=== PATIENT | male | born 1940 | race Caucasian/White ===

== ENCOUNTER 2019-08-21 12:07 | Inpatient (IN) | payer MEDICARE, BC ==
[~2019-08-21] VITALS: Ht 172.7 cm; Wt 71.1 kg
[2019-08-21] VITALS (29 sets, daily range): BP systolic 84–114; BP diastolic 46–68
--- NOTE | ~2019-08-21 | HEMODYNAMI ---
PATIENT:SHERIDAN SOLIS MEDICAL RECORD: [id number] : 40 [facility] ADMISSION DATE: 08/21/19 Generatedon:08/24/20198:49 Patient name: SHERIDAN SOLIS Patient #: [id number] SSN: : 1940 Date of study: 08/24/2019 Page: Of Hemodynamic Procedure Report Patient Data Patient Demographics Procedure consent was obtained First Name: SHERIDAN Gender: Male Last Name: WILL : 1940 Patient #: [id number] Age: 79 year(s) Race: Unknown Additional ID: [id number] Contact details [address]: [address] [place] [address] State: [place] City: [place] Zip code: [address] Past Medical History Allergies: No allergy information Admission Admission Data Admission Date: 08/21/2019 Admission Time: 13:56 Room #: [facility] Height (in.): 67.72 BSA: 1.79 (m2) Height (cm.): 172 BMI: 22.65 (kg/m2) Weight (lbs.): 147.71 Weight (kg.): 67 Lab Results Lab Result Date: 08/24/2019 Lab Result Time: 0:00 Biochemistry Name Units Result Min Max BUN mg/dl 19 --(----)*- 7 18 eGFR ml/min 90 --(*---)-- 90 120 NONAFRICAN CBC Name Units Result Min Max Hematocrit % 27.1 *-(----)-- 42 54 Hemoglobin g/dl 8.6 *-(----)-- 13.5 17.5 Procedure Procedure Types Cath Procedure Diagnostic Procedure C C w/Coronaries w/Grafts Sedation Charges Moderate Sedation up to 15 minutes PCI Procedure AMI/SVG/BRIM EDGE TRIMMER PTCA or Stent SVG-BMS/RASHAUN Initial Hemochron ACT Test Procedure Description Procedure Date Procedure Date: 08/24/2019 Procedure Start Time: 8:22 Procedure End Time: 8:47 Procedure Staff Name Function Eladio Reddy MD Performing Physician Ashanti Yun RT Monitor Sari Bergman RT Scrub Justine Simon RN Nurse Paul Mario RT Director Of Outreach Procedure Data Cath Procedure Fluoroscopy Diagnostic fluoroscopy Total fluoroscopy Time: 5.7 time: 5.7 min min Diagnostic fluoroscopy Total fluoroscopy dose: 578 dose: 578 mGy mGy Contrast Material Contrast Material Type Amount (ml) Isovue 300 125 Entry Location Entry Primary Successful Side Size Upsize Upsize Entry Closure Succes sful Closure Location (Fr) 1 (Fr) 2 (Fr) Remarks Device Remarks Femoral Right 5 Fr 6 Fr Exoseal artery Short Estimated blood loss: 10 ml Diagnostic catheters Device Type Used For End Catheter Placement MULTIPACK Pigtail 5 Fr Procedure catheter MULTIPACK JL 4.0 5Fr Procedure catheter MULTIPACK 3DRC 5Fr Procedure catheter DIAGNOSTIC AR2 MOD 5 Fr Procedure catheter ([id number]) Procedure Complications No complications Procedure Medications Medication Administration Route Dosage Oxygen etCO2 Nasal cannula 2 l/min Zofran I.V. 4 mg Plavix P.O. 75 mg Lidocaine 2% added to field 20 Heparin Flush Bag added to field 2 bags (1000units/500ml NS) 0.9% NaCl I.V. 100 ml/hr Versed I.V. 0.5 mg Fentanyl I.V. 50 mcg Fentanyl I.V. 50 mcg Lasix I.V. 40 mg Heparin Bolus I.V. 4000 units Cardene I.C. 300 mcg Integrilin (Bolus I.V. 6.2 ml 2mg/ml) Hemodynamics Rest BSA: 1.79 (m2) HGB: 8.6 (g/dl) O2 Consumption: Estimated: 212.23 (ml/min) O2 Con sumption indexed: Estimated:118.56 (ml/min/m) Heart Rate: 81 (bpm) Snapshots Pre Cath Intra NCS Post Cath Vital Signs Time Heart Resp SPO2 etCO2 NIBP Rhythm Pain Sedation Rate (ipm) (%) (mmHg) (mmHg) Status Level (bpm) 7:59:08 84 34 89 0 120/74(90) NSR 0 (11) 10(A) , No pain 8:03:18 80 35 90 0 112/61(80) NSR 0 (11) 10(A) , No pain 8:07:24 80 27 96 0 119/63(91) NSR 0 (11) 10(A) , No pain 8:11:29 79 39 95 0 116/66(91) NSR 0 (11) 10(A) , No pain 8:15:35 81 27 96 0 111/63(88) NSR 0 (11) 10(A) , No pain 8:19:41 76 25 96 0 113/60(89) NSR 0 (11) 10(A) , No pain 8:23:49 78 35 94 0 109/58(85) NSR 0 (11) 10(A) , No pain 8:27:54 78 39 95 0 111/57(82) NSR 0 (11) 10(A) , No pain 8:32:02 76 30 95 0 102/54(80) NSR 0 (11) 10(A) , No pain 8:36:06 73 29 94 0 84/49(69) NSR 0 (11) 10(A) , No pain 8:40:06 75 38 95 0 95/51(73) NSR 0 (11) 10(A) , No pain 8:44:08 73 33 96 0 100/53(78) NSR 0 (11) 10(A) , No pain Medications Time Medication Route Dose Verified Delivered Reason Notes Effectiveness by by 7:57:18 Oxygen etCO2 2 Eladio Trinidadie used for Nasal l/min Barry Simon RN procedure cannula 7:57:27 Zofran I.V. 4 mg Eladio Fletcher Per physician Barry Simon RN 7:57:37 Plavix P.O. 75 mg Eladio Fletcher for Barry Simon RN antiplatelet therapy 7:59:40 Lidocaine 2% added 20ml Eladio Hendricks for local to vial Barry Reddy MD anesthetic field 7:59:46 Heparin Flush added 2 Eladio Eladio used for Bag to bags Barry Reddy MD procedure (1000units/500ml field NS) 7:59:57 0.9% NaCl I.V. 100 Eladio Eladio used for ml/hr Barry Reddy MD procedure 8:19:14 Fentanyl I.V. 50 Eladio Abdiie for sedation mcg Barry Simon RN 8:19:45 Versed I.V. 0.5 Eladiomarcelino Abdiie for sedation mg Barry Simon RN 8:25:23 Fentanyl I.V. 50 Eladio Fletcher for sedation ebenezer Simon RN 8:27:34 Lasix I.V. 40 mg Eladio Fletcher Per physician Barry Simon RN 8:31:45 Heparin Bolus I.V. 4000 Eladio Fletcher for verifi ed units Barry Simon RN anticoagulation with dr reddy 8:33:25 Cardene I.C. 300 Eladio Hendricks for mcg Barry pruett 8:39:50 Integrilin I.V. 6.2 Eladio Fletcher for wasted (Bolus 2mg/ml) ml Barry Simon RN antiplatelet 3.8 ml therapy of vial Procedure Log Time Note 7:34:25 Informed consent obtained and on chart 7:35:10 Procedure Status Urgent Heart Cath (IP). 7:35:12 Paul Suit RT(R) sent for patient. Start room use. 7:35:18 Time tracking: Regular hours (M-F 7:00 - 5:00) 7:35:26 Plan of Care:Hemodynamics will remain stable., Cardiac rhythm will remain stable., Comfort level will be maintained., Respiratory function will remain adequate., Patient/ family verbilizes understanding of procedure., Procedure tolerated without complication., Recovers from procedure without complications.. 7:43:00 H&P Date Dictated: 08/24/2019 New H&P dictated by physician.. 7:43:32 Patient allergic to No allergy information 7:44:45 Lab Result : BUN 19 mg/dl 7:44:45 Lab Result : eGFR NONAFRICAN 90 ml/min 7:44:45 Lab Result : Hemoglobin 8.6 g/dl 7:44:45 Lab Result : Hematocrit 27.1 % 7:45:39 Patient Weight : 147.71 lbs 7:45:43 Patient Height : 67.72 inches 7:47:09 Patient received from Pre/Post Procedure Room to CCL 1 Alert and oriented. Tansferred to table in Supine position. 7:47:10 Warm blankets applied, and freida hugger turned on for patient comfort. 7:47:10 Correct patient and procedure confirmed by team. 7:47:11 ECG and BP/O2 sat monitors applied to patient. 7:57:18 Oxygen 2 l/min etCO2 Nasal cannula was administered by Justine Simon RN; used for procedure; Verbal order read back and verified. 7:57:27 Zofran 4 mg I.V. was administered by Justine Simon RN; Per physician; Verbal order read back and verified. 7:57:37 Plavix 75 mg P.O. was administered by Justine Simon RN; for antiplatelet therapy; Verbal order read back and verified. 7:57:59 Vital chart was started 7:58:00 Baseline sample Acquired. 7:58:04 Rhythm: sinus rhythm 7:58:35 Full Disclosure recording started 7:58:38 Pre-procedure instructions explained to patient. 7:58:38 Pre-op teaching completed and patient verbalized understanding. 7:58:40 Family unavailable. 7:58:41 Patient NPO since Midnight. 7:58:52 Is patient on blood thinner?Yes 7:59:03 PRE LOADED ON PLAVIX 7:59:28 Patient diabetic? No. 7:59:31 Previous problem with sedation/anesthesia? No ? 7:59:32 Snore? Yes 7:59:33 Sleep apnea? No 7:59:34 Deviated septum? No 7:59:36 Opens mouth fully? Yes 7:59:37 Sticks out tongue? Yes 7:59:39 Airway obstruction? No ? 7:59:40 Lidocaine 2% 20ml vial added to field was administered by Eladio Reddy MD; for local anesthetic; Verbal order read back and verified. 7:59:41 Dentures? No ? 7:59:46 Heparin Flush Bag (1000units/500ml NS) 2 bags added to field was administered by Eladio Reddy MD; used for procedure; Verbal order read back and verified. 7:59:57 0.9% NaCl 100 ml/hr I.V. was administered by Eladio Reddy MD; used for procedure; Verbal order read back and verified. 7:59:57 Pre procedure: right dorsailis pedis pulse 1+ Palpable, but thready & weak; easily obliterated 8:00:05 IV patent on arrival in right antecubital with 0.9% NaCl at [facility]. 8:01:44 Lab results completed and on chart. 8:01:53 Stress Test: no; N/A ? 8:01:57 Right groin area was prepped with chlora-prep and draped in sterile fashion 8:01:57 Alarms reviewed by RParag N. 8:01:58 Sharps counted by scrub and verified by R.N. 8:03:58 Risk of Mortality: .2 8:04:03 Risk of blood transfusion: 22.3 8:04:06 Risk of ISIDRO: 1.8 8:04:09 Use device set Femoral Dx 8:04:10 ACIST Syringe (74954) opened to sterile field. 8:04:11 Bag Decanter (2002S) opened to sterile field. 8:04:11 ACIST Hand Control (23053) opened to sterile field. 8:04:12 ACIST Manifold (01099) opened to sterile field. 8:04:15 Tegaderm 4 x 4 (1626W) opened to sterile field. 8:04:16 Medline Cath Pack ([id number]) opened to sterile field. 8:04:17 DIAGNOSTIC Multipack 5Fr catheter set (RY3768) opened to sterile field. 8:04:18 SHEATH 5FR [place] (RXQ397) opened to sterile field. 8:04:18 EMERALD Guide Wire (484-838) opened to sterile field. 8:18:59 --------ALL STOP TIME OUT------ 8:18:59 Final Timeout: patient, procedure, and site verified with staff and physician. All members of the team are in agreement. 8:19:01 Right groin site verified by team. 8:19:03 Fire Safety Assessment: A--An alcohol-based skin anteseptic being used preoperatively., C--Open oxygen or nitrous oxide is being used., D--An ESU, laser, or fiber-optic light is being used. 8:19:13 Physical assessment completed. ASA score P 4 - A patient with severe systemic disease that is a constant threat to life as per Eladio Reddy MD. 8:19:14 Fentanyl 50 mcg I.V. was administered by Justine Simon RN; for sedation; Verbal order read back and verified. 8:19:15 1) 90+ Normal kidney functon but urine findings or structural abnormalities or genetic trait point to kidney disease. 8:19:18 Maximum allowable contrast dose (3.7 X eGFR X 0.75)250 ml. 8:19:21 Sedation plan: IV Moderate Sedation Medication:Versed, Fentanyl 8:19:45 Versed 0.5 mg I.V. was administered by Justine Simon RN; for sedation; Verbal order read back and verified. 8:22:21 Zero performed for pressure channel P1 8:22:29 Procedure started. 8:22:37 Local anesthetic to right femoral artery with Lidocaine 2% by Eladio Reddy MD.INITIAL ACCESS ONLY 8:23:06 A 5 Fr sheath was inserted into the Right Femoral artery 8:23:36 A MULTIPACK Pigtail 5 Fr catheter was advanced over the wire and used for Procedure. 8:23:38 LV gram done using SMITH 8::41 Injector settings: Ml/sec: 10, Volume: 20, 8:24:05 EF : 50 % 8:24:33 Catheter removed. 8:24:53 A MULTIPACK JL 4.0 5Fr catheter was advanced over the wire and used for Procedure. 8:24:56 LCA angiography performed. 8:24:58 Catheter removed. 8:25:19 A MULTIPACK 3DRC 5Fr catheter was advanced over the wire and used for Procedure. 8:25:23 Fentanyl 50 mcg I.V. was administered by Justine Simon RN; for sedation; Verbal order read back and verified. 8:26:13 BROWN to LAD angiography performed. 8:26:49 RCA angiography performed. 8:26:50 Catheter removed. 8:27:08 A DIAGNOSTIC AR2 MOD 5 Fr catheter ([id number]) was advanced over the wire and used for Procedure. 8:27:34 Lasix 40 mg I.V. was administered by Justine Simon RN; Per physician; Verbal order read back and verified. 8:28:06 SVG to Diag angiography performed. 8:28:49 SVG to RCA angiography performed. 8:28:52 Catheter removed. 8:29:12 SHEATH 6FR [place] ([id number]) opened to sterile field. 8:29:20 CHOICE PT Extra Support 182cm wire ([id number]) opened to sterile field. 8:29:24 INFLATOR Merit BasixCompak (GI3792) opened to sterile field. 8:29:34 GUIDE 6FR AR 2.0 catheter ([id number]) opened to sterile field. 8:29:53 Proceeding to intervention. 8:30:08 Pre PCI Site: Vein Graft mRCA has 95% stenosis. 8:30:24 Sheath upsized to a 6 Fr Short. 8:30:49 6 Fr AR 2 guide catheter was inserted over the wire 8:31:45 Heparin Bolus 4000 units I.V. was administered by Justine Simon RN; for anticoagulation; verified with dr reddy Verbal order read back and verified. 8:31:53 CHOICE ES 182 wire advanced. 8:32:52 Wire advanced across lesion. 8:33:25 Cardene 300 mcg I.C. was administered by Eladio Reddy MD; for vasodilation; Verbal order read back and verified. 8:34:10 Place stent Inflation Number: 1 A ADOLFO RX 3.5 x 30 stent ([id number]) was prepped and advanced across the Aorta Right -> Mid RCA . The stent was deployed at 17 ALAN for 0:00 (min:sec) . 8:34:38 Stent catheter was removed intact over wire. 8:36:15 Place stent Inflation Number: 2 A ADOLFO RX 3.5 x 22 stent ([id number]) was prepped and advanced across the Aorta Right -> Mid RCA . The stent was deployed at 17 ALAN for 0:00 (min:sec) . 8:36:31 Stent catheter was removed intact over wire. 8:38:58 Place stent Inflation Number: 3 A ADOLFO RX 3.5 x 34 stent ([id number]) was prepped and advanced across the Aorta Right -> Mid RCA . The stent was deployed at 17 ALAN for 0:00 (min:sec) . 8:39:01 Stent catheter was removed intact over wire. 8:39:49 Wire removed. 8:39:49 Guide catheter removed. 8:39:50 Integrilin (Bolus 2mg/ml) 6.2 ml I.V. was administered by Justine Simon RN; for antiplatelet therapy; wasted 3.8 ml of vial Verbal order read back and verified. 8:40:00 EXOSEAL 6Fr (EX600) opened to sterile field. 8:40:11 Sheath removed intact; hemostasis achieved with Exoseal to the Right Femoral artery. 8:40:12 Procedure ended.(Physican Out) 8:41:28 Fluoroscopy time 05.70 minutes. 8:41:32 Fluoroscopy dose: 578 mGy 8:41:32 Flurop Dose total: 578 8:41:38 Dose Area Product 48596 mGy/cm. 8:41:42 Contrast amount:Isovue 300 125ml. 8:41:45 Maximum allowable dose exceeded? No. 8:41:46 Sharps counted by scrub and verified by R.N. 8:41:51 Post-op/insertion site Right Femoral artery dressed using a 4 x 4 and Tegaderm. 8:41:54 Post-procedure physical assessment completed. ASA score P 4 - A patient with severe systemic disease that is a constant threat to life as per Eladio Reddy MD. 8:41:58 Post procedure rhythm: sinus rhythm 8:42:00 Estimated blood loss: 10 ml 8:42:01 Post procedure instruction explained to patient.Patient verbalizes understanding. 8:42:01 Patient needs reinforcement of post procedure teaching. 8:43:00 Procedure type changed to Cath procedure, Diagnostic procedure, LHC, LHC w/Coronaries w/Grafts, Sedation Charges, Moderate Sedation up to 15 minutes, PCI procedure, AMI/SVG/BRIM EDGE TRIMMER PTCA or Stent, SVG-BMS/RASHAUN Initial, Hemochron ACT Test 8:43:10 ACT drawn and resulted at OUT OF RANGE seconds. (normal therapeutic range 180-240 seconds). 8:44:56 Procedure and supply charges have been captured, reviewed, submitted and are correct. 8:44:59 Procedure Complication : No complications 8:45:03 [facility] Findings: MVD- PCI performed (see procedure note) 8:45:05 Operative report dictated upon procedure completion. 8:45:05 See physician's report for complete and final results. 8:47:02 Vital chart was stopped 8:47:06 Report given to ICU. 8:47:11 Patient transfered to ICU with Bed. 8:47:13 Procedure ended. 8:47:13 Full Disclosure recording stopped 8:47:19 ACC-PCI Only Patient was given prescriptions, or instructed by Eladio Reddy MD to start/continue the following medications upon discharge: Plavix 8:47:21 End room use (Document Last) 8:47:34 End room use (Document Last) Intervention Summary Intervention Notes Time ActionType Lesion and Equipment Used Action# Pressure Duration Attributes 8:34:10 Place stent Aorta Right ADOLFO RX 3.5 x 1 17 00:00 -> Mid RCA 30 stent ([id number]) 8:36:15 Place stent Aorta Right ADOLFO RX 3.5 x 2 17 00:00 -> Mid RCA 22 stent ([id number]) 8:38:58 Place stent Aorta Right ADOLFO RX 3.5 x 3 17 00:00 -> Mid RCA 34 stent ([id number]) Device Usage Item Name Manufacture Quantity Catalog Number Hospital Part Current M inimal Lot# / Charge Number Stock Stock Serial# Code ACIST Syringe Acist 1 01502 491896 451932 230072 2 0 (50278) Medical Systems Post-A-Vox Bag Decanter Microtek 1 449834 58205 763653 5 () Medical Inc. ACIST Hand Acist 1 39126 578462 755836 324702 5 Control Medical (42745) Systems Inc ACIST Manifold Acist 1 73094 909813 540124 873270 5 (14299) Medical Systems Inc Tegaderm 4 x 4 3M 1 1626W 803823 886399 440902 5 (1626W) Medline Cath Medline 1 [id number] 870814 13571 958696 5 Pack ([id number]) DIAGNOSTIC Cardinal 1 QJ9343 236714 90786 982661 3 0 Multipack 5Fr Health catheter set (AR5825) SHEATH 5FR Terumo 1 HWJ582 681098 189924 028403 5 [place] (KYD390) EMERALD Guide Cardinal 1 502-455 726182 916343 974324 5 Wire (502-455) Health MULTIPACK Cardinal 1 515023 5 Pigtail 5 Fr Health catheter MULTIPACK JL Cardinal 1 120482 5 4.0 5Fr Health catheter MULTIPACK 3DRC Cardinal 1 163952 5 5Fr catheter Health DIAGNOSTIC AR2 Cardinal 1 [id number] 417376 033063 995271 2 0 MOD 5 Fr Health catheter ([id number]) SHEATH 6FR Terumo 1 IKN524 333838 245093 661218 4 0 [place] (FCV527) CHOICE PT [place] 1 [id number] 965833 801690 822655 5 Extra Support Scientific 182cm wire ([id number]) INFLATOR Merit Merit 1 HQ0547 918380 278847 185127 1 5 [place] ([id number]) GUIDE 6FR AR Medtronic 1 [id number] 214288 77687 597966 1 2.0 catheter (OJ2QH24) ADOLFO RX 3.5 x Medtronic 1 [id number] 415115 7673611 589070 5 [id number] 30 stent ([id number]) ADOLFO RX 3.5 x Medtronic 1 [id number] 980049 7082761 187281 5 [id number] 22 stent ([id number]) ADOLFO RX 3.5 x Medtronic 1 [id number] 888049 3569723 629357 5 [id number] 34 stent ([id number]) EXOSEAL 6Fr Cardinal 1 EX600 034425 545341 453420 1 0 (EX600) Health Signature Audit [place] Stage Time Signature Unsigned Intra-Procedure 08/24/2019 Ashanti Yun 8:47:34 AM RT(R) Intra-Procedure 08/24/2019 Justine Simon RN 8:48:14 AM Intra-Procedure 08/24/2019 Eladio Reddy 8:49:26 AM [place] [id number]
--- NOTE | 2019-08-21 13:50 | NUR ---
PT ARRIVED AT THIS TIME VIA EMS ON STRETCHER. VSS. NO ACUTE DISTRESS NOTED. ON 12L OXYGEN VIA NONREBREATHER. ALSO ON LEVOPHED. DR FINN NOTIFIED OF PTS ARRIVAL. PT ABLE TO ANSWER ORIENTATION QUESTIONS APPROPIATELY, HOWEVER PT STATES HE CAN SEE ANTS CRAWLING ALL OVER THE CEILING. WILL CONTINUE PLAN OF CARE.
--- NOTE | 2019-08-21 13:59 | NUR ---
CARDIAC CONSULT NOTED, PER DR BURKETT ORDER AN ECHO.
--- NOTE | 2019-08-21 14:04 | NUR ---
DR FINN HERE TO SEE PT. ORDERS RECIEVED.
--- NOTE | 2019-08-21 15:00 | NUR ---
REASSESSMENT AND ECG COMPLETED. WILL CONT TO MONITOR.
[2019-08-21 15:17] LABS: HEMOGLOBIN 9.6 g/dL (13.5-17.5); MCH 29.2 pg (26.0-34.0); MCHC 33.1 g/dL (31.0-37.0); MCV 88.1 fL (80.0-100.0); PLATELET COUNT 262 10x3/uL (130-400); RBC 3.29 10x6/uL (4.20-6.10); RDW 14.9 % (11.5-14.5); WBC 20.5 10x3/uL (4.8-10.8)
[2019-08-21 15:38] LABS: CALC OSMOLALITY 281 mosm/kg (275-300); CALCIUM 7.5 mg/dL (8.5-10.1); CARBON DIOXIDE 28.9 mmol/L (21.0-32.0); CHLORIDE - SERUM 100 mmol/L (98-107); CREATININE - SERUM 0.9 mg/dL (0.6-1.3); GLUCOSE 117 mg/dL (74-106); POTASSIUM - SERUM 3.1 mmol/L (3.5-5.1); SODIUM 139 mmol/L (136-145); UREA NITROGEN 20 mg/dL (7-18); eGFR NON AFRICAN AMERICAN 86 mL/min (90-120)
[2019-08-21 15:40] LABS: LYMPHOCYTES 24 % (15-50); MONOCYTES 8 % (2-11); NEUTROPHILS 68 % (40-80); PLATELET ESTIMATE NORMAL
[2019-08-21 15:59] LABS: ALBUMIN 1.7 g/dL (3.4-5.0); ALKALINE PHOSPHATASE 101 U/L (46-116); ALT (SGPT) 107 U/L (10-68); BILIRUBIN - TOTAL 0.51 mg/dL (0.2-1.3); CKMB 1.4 U/L (0.0-3.6); CREATINE KINASE 64 UL (21-232); PROTEIN - SERUM 5.1 g/dL (6.4-8.2)
[2019-08-21 16:02] LABS: TROPONIN-I 4.896 ng/mL (0.000-0.060)
--- NOTE | 2019-08-21 16:57 | NUR ---
SPOKE WITH PT SISTER (TROY) ON THE PHONE, TROY SAID "PLEASE KEEP HIS PHONE AWAY FROM HIM, HE HAS CALLED ME 30 TIMES IN THE LAST HOUR. I NEED TO SLEEP. I WILL BE UP THERE TOMORROW MORNING." PUT PT PHONE ON BEDSIDE TABLE, GAVE PT CALL LIGHT. PT THEN STATED "YOU'RE TAKING MY PHONE, GIVE ME MY PHONE BACK. I NEED TO CALL TROY AND TELL HER TO COME GET ME FROM THIS HELL HOLE YOU GUYS PUT ME IN. I DON'T WANT TO BE IN THIS AIRPORT ANYMORE, YOU'RE TRYING TO KILL ME." ROSA M RN AT BEDSIDE. WILL CONT TO MONITOR.
--- NOTE | 2019-08-21 17:00 | NUR ---
PT CONFUSED, TRIED TO REORIENT PT MULTIPLE TIMES. PT STATED "YOU'RE PISSING ME OFF, I KNOW WHERE I AM." WILL CONT TO MONITOR.
--- NOTE | 2019-08-21 17:24 | NUR ---
CALLED , UPDATE GIVEN. NEW ORDERS RECEIVED. PT STATED "CALL MY DR AND TELL HIM I'M HAVING A FIT. YOU'RE REALLY PISSING ME OFF. GIVE ME MY PHONE. YOU'RE NOT GOING TO LIKE ME I CAN TELL YOU THAT." WILL CONT TO MONITOR.
--- NOTE | 2019-08-21 18:00 | NUR ---
GEODON SHOT GIVEN PER ORDERS. WILL CONT TO MONITOR.
--- NOTE | 2019-08-21 18:24 | NUR ---
PT RESTING IN BED WITH EYES CLOSED. WILL CONT TO MONITOR.
--- NOTE | 2019-08-21 19:00 | NUR ---
ASSESSMENT COMPLETED. CONFUSED. PATIENT IS CALM. DENIES ANY NEEDS
--- NOTE | 2019-08-21 21:00 | NUR ---
EYES CLOSED, EASILY WAKES TO NAME. DENIES ANY NEEDS. STARTED BACK LEVOPHED D/T HYPOTENSION.
[2019-08-21 21:52] LABS: CKMB 0.9 U/L (0.0-3.6); CREATINE KINASE 49 UL (21-232)
[2019-08-21 21:53] LABS: TROPONIN-I 4.918 ng/mL (0.000-0.060)
--- NOTE | 2019-08-21 23:00 | NUR ---
RE-ASSESSMENT COMPLETED. REPOSITIONED. DENIES ANY NEEDS.
[2019-08-22] VITALS (82 sets, daily range): BP systolic 78–113; BP diastolic 36–63
--- NOTE | 2019-08-22 01:00 | NUR ---
DENIES ANY NEEDS. EASILY WAKES. REPOSITIONED
--- NOTE | 2019-08-22 03:00 | NUR ---
RE-ASSESSMENT COMPLETED. NO CHANGES SINCE LAST ASSESSMENT. CHG BATH GIVEN WITH COMPLETE LINEN CHANGE
[2019-08-22 04:04] LABS: APPEARANCE CLEAR (CLEAR); BACTERIA NONE SEEN /hpf (NEGATIVE); BILIRUBIN NEGATIVE (NEGATIVE); COLOR YELLOW (YELLOW); GLUCOSE NEGATIVE (NEGATIVE); KETONE SMALL mg/dL (NEGATIVE); NITRITE NEGATIVE (NEGATIVE); PROTEIN NEGATIVE (NEGATIVE); UROBILINOGEN NORMAL (NORMAL); WHITE CELLS - URINE RARE /hpf (NEGATIVE)
--- NOTE | 2019-08-22 05:00 | NUR ---
LAYING IN BED, EYES CLOSED. EASILY WAKES. REPOSITIONED.
[2019-08-22 06:44] LABS: ALBUMIN 1.6 g/dL (3.4-5.0); ALKALINE PHOSPHATASE 98 U/L (46-116); ALT (SGPT) 81 U/L (10-68); BILIRUBIN - TOTAL 0.49 mg/dL (0.2-1.3); CALC OSMOLALITY 283 mosm/kg (275-300); CALCIUM 7.3 mg/dL (8.5-10.1); CARBON DIOXIDE 27.5 mmol/L (21.0-32.0); CHLORIDE - SERUM 102 mmol/L (98-107); CKMB 0.7 U/L (0.0-3.6); CREATINE KINASE 38 UL (21-232); CREATININE - SERUM 0.7 mg/dL (0.6-1.3); GLUCOSE 131 mg/dL (74-106); POTASSIUM - SERUM 3.1 mmol/L (3.5-5.1); PROTEIN - SERUM 4.9 g/dL (6.4-8.2); SODIUM 140 mmol/L (136-145); UREA NITROGEN 20 mg/dL (7-18); eGFR NON AFRICAN AMERICAN > 90 mL/min (90-120)
[2019-08-22 06:47] LABS: TROPONIN-I 3.265 ng/mL (0.000-0.060)
[2019-08-22 06:51] LABS: HEMATOCRIT 28.2 % (42.0-54.0); HEMOGLOBIN 9.2 g/dL (13.5-17.5); MCHC 32.6 g/dL (31.0-37.0); MEAN PLATELET VOLUME 9.2 fL (7.4-10.4); PLATELET COUNT 272 10x3/uL (130-400); RBC 3.17 10x6/uL (4.20-6.10); RDW 14.8 % (11.5-14.5); WBC 21.9 10x3/uL (4.8-10.8)
--- NOTE | 2019-08-22 07:00 | NUR ---
BEDSIDE REPORT RECEIVED. SHIFT ASSESSMENT COMPLETED PER FLOWSHEET, SEE FLOWSHEET FOR INFORMATION. NO ACUTE NEEDS OR DISTRESS NOTED AT THIS TIME. WILL CONT TO MONITOR.
[2019-08-22 07:10] LABS: LYMPHOCYTES 11 % (15-50); MONOCYTES 5 % (2-11); NEUTROPHILS 83 % (40-80); PLATELET ESTIMATE NORMAL
--- NOTE | 2019-08-22 09:00 | NUR ---
0900 MEDICATIONS GIVEN. NO ACUTE NEEDS OR DISTRESS NOTED AT THIS TIME. WILL CONT TO MONITOR.
--- NOTE | 2019-08-22 11:00 | NUR ---
AT BEDSIDE. NEW ORDERS RECEIVED. REASSESSMENT COMPLETED PER FLOWSHEET, SEE FLOWSHEET FOR INFORMATION. PT GIVEN SIPS ON WATER PER ORDER, PT TOLERATED WELL NO S/S OF DYSPHAGIA. WILL CONT TO MONITOR.
--- NOTE | 2019-08-22 13:00 | NUR ---
PT REPOSTIONED PER COMFORT. WILL CONT MONITOR.
[2019-08-22 14:21] LABS: % SATURATION 10 % (15-55); IRON 13 ug/dl (35-150); TOTAL IRON BIND CAPACITY 119 ug/dl (260-445); UNSAT IRON BIND CAPACITY 106 ug/dl (150-375)
--- NOTE | 2019-08-22 15:00 | NUR ---
REASSESSMENT COMPLETED PER FLOWSHEET, SEE FLOWSHEET FOR INFORMATION. REPOSITIONED PT PER COMFORT. PT RESTING IN BED WITH EYES CLOSED. WILL CONT TO MONITOR.
--- NOTE | 2019-08-22 17:00 | NUR ---
REPOSITIONED PT PER COMFORT, NO ACUTE NEEDS OR DISTRESS NOTED AT THIS TIME. PT REQUESTED A SIP OF WATER, WATER GIVEN. WILL CONT TO MONITOR.
--- NOTE | 2019-08-22 19:15 | NUR ---
REPORT RECEIVED, SHIFT ASSESSMENT COMPLETE, PT IS CONFUSED LYING IN BED, ON 5L HF NC WITH 97% O2 SAT. ALL PPP, VSS, CALL LIGHT IN REACH
--- NOTE | 2019-08-22 21:00 | NUR ---
NO VISITORS AT THIS TIME, WILL CON'T TO MONITOR
--- NOTE | 2019-08-22 23:00 | NUR ---
REASSESSMENT COMPLETE, NO CHANGES NOTED, PT RESTING AT THIS TIME, VSS,
[2019-08-23] VITALS (25 sets, daily range): BP systolic 86–112; BP diastolic 45–68; Ht 172.7 cm; Wt 71.1 kg
--- NOTE | 2019-08-23 01:00 | NUR ---
NO NEEDS NOTED AT THIS TIME, WILL CON'T TO MONITOR
--- NOTE | 2019-08-23 03:20 | NUR ---
REASSESSMENT COMPLETE, NO CHANGES NOTED, WILL CON'T TO MONITOR
[2019-08-23 04:53] LABS: BASOPHILS 0.3 % (0-2); EOSINOPHILS 2.7 % (0-7); HEMATOCRIT 27.1 % (42.0-54.0); HEMOGLOBIN 8.6 g/dL (13.5-17.5); IMMATURE GRANULOCYTES 0.6 % (0-5); LYMPHOCYTES 11.7 % (15-50); MCH 28.5 pg (26.0-34.0); MCHC 31.7 g/dL (31.0-37.0); MCV 89.7 fL (80.0-100.0); MEAN PLATELET VOLUME 8.9 fL (7.4-10.4); MONOCYTES 8.9 % (2-11); NEUTROPHILS 75.8 % (40-80); PLATELET COUNT 288 10x3/uL (130-400); RBC 3.02 10x6/uL (4.20-6.10); RDW 15.2 % (11.5-14.5)
[2019-08-23 05:04] LABS: WBC 15.8 10x3/uL (4.8-10.8)
[2019-08-23 05:09] LABS: ALBUMIN 1.5 g/dL (3.4-5.0); ALKALINE PHOSPHATASE 93 U/L (46-116); BILIRUBIN - TOTAL 0.38 mg/dL (0.2-1.3); CALC OSMOLALITY 285 mosm/kg (275-300); CALCIUM 7.7 mg/dL (8.5-10.1); CARBON DIOXIDE 29.7 mmol/L (21.0-32.0); CHLORIDE - SERUM 106 mmol/L (98-107); CREATININE - SERUM 0.8 mg/dL (0.6-1.3); GLUCOSE 118 mg/dL (74-106); POTASSIUM - SERUM 3.3 mmol/L (3.5-5.1); PROTEIN - SERUM 5.3 g/dL (6.4-8.2); SODIUM 142 mmol/L (136-145); UREA NITROGEN 19 mg/dL (7-18); eGFR NON AFRICAN AMERICAN > 90 mL/min (90-120)
[2019-08-23 05:10] LABS: ALT (SGPT) 51 U/L (10-68)
--- NOTE | 2019-08-23 05:15 | NUR ---
PT RESTING AT THIS TIME, NO NEEDS NOTED, WILL CON'T TO MONITOR
--- NOTE | 2019-08-23 07:00 | NUR ---
PT RESTING IN BED, VSS AND WNL. PT ANSWERS ALL QUESTIONS. A&O X3. SAVAGE CATHETER DRAINING STRAW COLORED URINE FREELY VIA GRAVITY NOTED. STAT LOCK IN PLACE. CALL LIGHT WITHIN REACH, BED ALARM ON. DENIES ANY FURTHER NEEDS AT THIS TIME, WILL CONT TO FOLLOW POC
--- NOTE | 2019-08-23 09:00 | NUR ---
PT RESTING IN BED, VSS AND WNL. PT ATE SOME JELLO AND DRANK SOME WATER. DENIES ANY NEEDS AT THIS TIME, BED ALARM ON, CALL LIGHT WITHIN REACH. WILL CONT TO FOLLOW POC
--- NOTE | 2019-08-23 11:00 | NUR ---
BED BATH GIVEN AND FULL LINEN CHANGE PROVIDED. PT RESTING IN BED, ANSWERS ALL QUESTIONS. DENIES ANY NEEDS AT THIS TIME, BED ALARM ON, CALL LIGHT WITHIN REACH. WILL CONT TO FOLLOW POC
--- NOTE | 2019-08-23 12:28 | NUR ---
Pt admitted with unstageable pressure injury on his right heel. It measures 2cm x 2cm and is covered with eschar. There is no odor or drainage noted. Recommned cleaning with betadine daily, covering with 4x4s and protecting with heel protectors and by floating heels. Wound care will continue monitoring.
--- NOTE | 2019-08-23 13:00 | NUR ---
PT RESTING IN BED, VSS AND WNL. BED ALARM ON, CALL LIGHT WITHIN REACH, PT REPOSITIONED. DENIES ANY FURTHER NEEDS AT THIS TIME, WILL CONT TO FOLLOW POC
--- NOTE | 2019-08-23 15:00 | NUR ---
PT RESTING IN BED, VSS AND WNL, CALL LIGHT WITHIN REACH. DENIES ANY NEEDS AT THIS TIME, WILL CONT TO FOLLOW POC
--- NOTE | 2019-08-23 17:00 | NUR ---
PT RESTING IN BED, VSS AND WNL. PT ALERT AND ANSWERS ALL QUESTIONS. PT REPOSITIONED. DENIES ANY FURTHER NEEDS AT THIS TIME, CALL LIGHT WITHIN REACH. BED ALARM ON. WILL CONT TO FOLLOW POC
--- NOTE | 2019-08-23 18:13 | NUR ---
PT RESTING IN BED, TRAY SET UP PROVIDED. VSS AND WNL, DENIES ANY FURTHER NEEDS AT THIS TIME, WILL CONT TO FOLLOW POC
--- NOTE | 2019-08-23 19:25 | NUR ---
REPORT RECIEVED, SHIFT ASSESSMENT COMPLETE, PT IS ALERT AND ORIENTED, ON 2L NC WITH 97% O2 SAT. ALL PPP, VSS, WILL CON'T TO MONITOR
--- NOTE | 2019-08-23 21:10 | NUR ---
NO VISITORS AT THIS TIME, WILL CON'T TO MONITOR
--- NOTE | 2019-08-23 23:19 | NUR ---
REASSESSMENT COMPLETE, NO CHANGES NOTED, WILL CON'T TO MONITOR
[2019-08-24] VITALS (17 sets, daily range): BP systolic 99–127; BP diastolic 53–76
--- NOTE | 2019-08-24 01:15 | NUR ---
PT RESTING COMFORTABLY AT THIS TIME, NO NEEDS NOTED, VSS, CALL LIGHT IN REACH
--- NOTE | 2019-08-24 03:15 | NUR ---
REASSESSMENT COMPLETE, NO CHANGES NOTED, PT RESTING AT THIS TIME, NO NEEDS NOTED, VSS, CALL LIGHT IN REACH
[2019-08-24 03:56] LABS: BASOPHILS 0.3 % (0-2); EOSINOPHILS 4.2 % (0-7); IMMATURE GRANULOCYTES 1.1 % (0-5); LYMPHOCYTES 12.5 % (15-50); MCH 28.9 pg (26.0-34.0); MCHC 32.7 g/dL (31.0-37.0); MCV 88.6 fL (80.0-100.0); MEAN PLATELET VOLUME 8.7 fL (7.4-10.4); MONOCYTES 9.3 % (2-11); NEUTROPHILS 72.6 % (40-80); PLATELET COUNT 311 10x3/uL (130-400); RDW 15.2 % (11.5-14.5); WBC 15.7 10x3/uL (4.8-10.8)
[2019-08-24 04:22] LABS: ALBUMIN 1.6 g/dL (3.4-5.0); ALKALINE PHOSPHATASE 92 U/L (46-116); CALC OSMOLALITY 279 mosm/kg (275-300); CALCIUM 7.5 mg/dL (8.5-10.1); CARBON DIOXIDE 27.4 mmol/L (21.0-32.0); CHLORIDE - SERUM 105 mmol/L (98-107); CREATININE - SERUM 0.7 mg/dL (0.6-1.3); GLUCOSE 119 mg/dL (74-106); POTASSIUM - SERUM 3.3 mmol/L (3.5-5.1); PROTEIN - SERUM 5.5 g/dL (6.4-8.2); SODIUM 139 mmol/L (136-145); UREA NITROGEN 15 mg/dL (7-18); eGFR NON AFRICAN AMERICAN > 90 mL/min (90-120)
[2019-08-24 04:29] LABS: HEMATOCRIT 34.3 % (42.0-54.0); HEMOGLOBIN 11.2 g/dL (13.5-17.5); RBC 3.87 10x6/uL (4.20-6.10)
[2019-08-24 04:41] LABS: ALT (SGPT) 38 U/L (10-68)
--- NOTE | 2019-08-24 05:22 | NUR ---
PT AWAKE AT THIS TIME, DENIES ANY NEEDS OR WANTS, WILL CON'T TO MONITOR
--- NOTE | 2019-08-24 07:22 | NUR ---
PT RESTING IN BED, VSS AND WNL. SAVAGE CATHETER DRAINING STRAW TINGED URINE FREELY VIA GRAVITY, BED ALARM ON. WILL CONT TO FOLLOW POC
--- NOTE | 2019-08-24 07:41 | NUR ---
SHIPPING CLERK/ADMIN CALLED TO PREOP PT. PT PREOP ORDERED. SHIPPING CLERK/ADMIN HERE AND TOOK PT. NURSE NOTIFIED SISTER.
--- NOTE | 2019-08-24 08:25 | NUR ---
2 GOLD RINGS REMOVED FROM PT FINGERS LAST NIGHT DUE TO SWELLING. BOTH RINGS WERE GIVEN TO PT SISTER, TROY LEMONS THIS AM. SISTER PUT THEM IN HER PURSE AND THANKED NURSE
--- NOTE | 2019-08-24 09:10 | NUR ---
PT RETURNED FROM ASSOCIATE PUBLISHER, FAMILY BROUGHT TO BEDSIDE. VSS AND WNL. NO SIGNS OF HEMATOMA FORMATION NOTED. PUSLES PRESENT WITH DOPPLER. WILL CONT TO FOLLOW POC
--- NOTE | 2019-08-24 09:25 | NUR ---
PT RESTING IN BED, VSS AND WNL. BED ALARM ON. FAMILY AT BEDSIDE, NO SIGNS OF HEMATOMA FORMATION NOTED AT THIS TIME. PULSES PRESENT VIA DOPPLER. WILL CONT TO FOLLOW POC
--- NOTE | 2019-08-24 09:40 | NUR ---
PT RESTING IN BED, VSS AND WNL. FAMILY AT BEDSIDE. NO SIGN OF HEMATOMA FORMATION NOTED AT THIS TIME, BED ALARM ON. WILL CONT TO FOLLOW POC
--- NOTE | 2019-08-24 09:55 | NUR ---
PT RESTING IN BED, VSS AND WNL, DRESSING TO RIGHT GROIN C/D/I. NO SIGNS OF HEMATOMA FORMATION NOTED. PULSES PRESENT WITH DOPPLER. DENIES ANY NEEDS AT THIS TIME, WILL CONT TO FOLLOW POC
--- NOTE | 2019-08-24 10:10 | NUR ---
PT RESTING IN BED, VSS AND WNL, BED ALARM ON. DRESSING NOTED TO RIGHT GROIN, C/D/I. NO SIGN OF HEMATOMA FORMATION NOTED. PULSES PRESENT WITH DOPPLER. DENIES ANY NEEDS AT THIS TIME, WILL CONT TO FOLLOW POC
--- NOTE | 2019-08-24 10:38 | NUR ---
PT RESTING IN BED, VSS AND WNL. DRESSING TO RIGHT GROIN C/D/I. NO SIGNS OF HEMATOMA FORMATION NOTED AT THIS TIME, PULSES PRESENT WITH DOPPLER. BED ALARM ON. DENIES ANY NEEDS AT THIS TIME, WILL CONT TO FOLLOW POC
--- NOTE | 2019-08-24 11:10 | NUR ---
PT RESTING IN BED, VSS AND WNL. DRESSING TO RIGHT GROIN C/D/I. PULSES PRESENT WITH DOPPLER. DENIES ANY NEEDS AT THIS TIME, WILL CONT TO FOLLOW POC
--- NOTE | 2019-08-24 11:19 | NUR ---
HERE AND SPOKE WITH FAMILY. NOTIFIED HIM OF PT URINE COLOR CHANGING FROM STRAW TINGED TO BRIGHT RED. NO NEW ORDERS RECIEVED AND OK WITH IT. NO SIGNS OF DISTRESS NOTED. WILL CONT TO FOLLOW POC
--- NOTE | 2019-08-24 11:49 | NUR ---
PT RESTING IN BED, VSS AND WNL. DRESSING TO RIGHT GROIN C/D/I. PULSES PRESENT WITH DOPPLER. BED ALARM ON. DENIES ANY NEEDS AT THIS TIME, WILL CONT TO FOLLOW POC
--- NOTE | 2019-08-24 12:30 | NUR ---
PT RESTING IN BED, DRESSING TO RIGHT GROIN C/D/I. NO SIGNS OF HEMATOMA FORMATION NOTED AT THIS TIME, BED ALARM ON. VSS AND WNL. CALL LIGHT WITHIN REACH. WILL CONT TO FOLLOW POC
--- NOTE | 2019-08-24 14:36 | NUR ---
PT SITTING UP IN BED EATING JELLO. DRESSING TO RIGHT GROIN C/D/I. VSS AND WNL. NO SIGN OF HEMATOMA FORMATION NOTED AT THIS TIME, PULSES PRESENT WITH DOPPLER. BED ALARM ON, CALL LIGHT WITHIN REACH. WILL CONT TO FOLLOW POC
--- NOTE | 2019-08-24 15:34 | NUR ---
REPORT CALLED TO KEN ON MED 2
--- NOTE | 2019-08-24 16:28 | NUR ---
PT TAKEN TO 2134 VIA BED
--- NOTE | 2019-08-24 16:35 | NUR ---
PATIENT IS HERE FROM ICU. PATIENT IS ALERT AND DENIES ANY NEEDS AT THIS TIME.
--- NOTE | 2019-08-24 19:00 | NUR ---
PATIENT THREW A PLATE AND SAYS HE DOES NOT WANT TO BE HERE . HE DOES NOT WANT TO KEEP LIVING. HE IS TIRED OF BEING SICK. CALLING LEANDRO TO REPORT.
--- NOTE | 2019-08-24 19:22 | NUR ---
CALLED SAM REEVES AND I DID THE SUICIDE RISK SCREENING. PATIENT ANSWERED YES TO SEVERAL OF THE QUESTIONS SO I CALLED [facility] AND ASKED THEM TO COME ASSESS HIM.
--- NOTE | 2019-08-24 19:44 | NUR ---
TG FROM [facility] AT BED SIDE TO RISK SCREEN.
--- NOTE | 2019-08-24 20:01 | NUR ---
DR. HUERTAS NOTIFIED AND REVIEWED PT'S BEHAVIOR AND ASSESSMENT RESULTS. PT IS A LOW RISK PER DR. HUERTAS. DR. HUERTAS STATED TO GIVE RESOURCES TO PT AT TIME OF DISCHARGE. NO FURTHER ORDERS AT THIS TIME. RESOURCES REVIEWED WITH PT AND HE VERBALIZED UNDERSTANDING.
--- NOTE | 2019-08-24 21:09 | NUR ---
MORPHINE 2 MG GIVEN FOR C/O GENERALIZED PAIN.
--- NOTE | 2019-08-24 22:56 | NUR ---
RESTING WITH EYES CLOSED, RESPERATIONS EVEN, NO S/S DISTRESS NOTED.
[2019-08-25] VITALS: BP 98/52
--- NOTE | 2019-08-25 01:07 | NUR ---
PT YELLING OUT " HELP ME, HELP ME, I JUST WANT TO " ENTERED PTS ROOM, PT YELLING FOR ME TO GET OUT AND JUST LET HIM , I EXPLAINED TO PT THAT I WAS GOING TO REPOSITION HIM IN BED AND GIVE HIM PAIN MEDICINE, PT THEN RAISED HIS HANDS UP TOWARDS ME IN A CHOKING POSITION AND YELLED IM GOING TO STRANGLE YOU. SECOND NURSE CAME IN TO ROOM TO HELP REPOSITION PT AND CLEAN HIM DUE TO INCONTINENCE OF BOWEL. CALMOSEPTINE APPLIED TO BUTTOCKS, REPOSITIONED IN BED FOR COMFORT, MORPHINE 2 MG GIVEN FOR C/O PAIN.
--- NOTE | 2019-08-25 02:32 | NUR ---
I have reviewed this patient and I concur with the Shift Assessment completed by the Licensed Practical Nurse today this shift.
[2019-08-25 04:00] VITALS: BP 101/53
[2019-08-25 05:38] LABS: BASOPHILS 0.2 % (0-2); EOSINOPHILS 4.5 % (0-7); HEMATOCRIT 35.3 % (42.0-54.0); HEMOGLOBIN 11.5 g/dL (13.5-17.5); LYMPHOCYTES 11.3 % (15-50); MCH 28.9 pg (26.0-34.0); MCHC 32.6 g/dL (31.0-37.0); MCV 88.7 fL (80.0-100.0); MEAN PLATELET VOLUME 8.7 fL (7.4-10.4); MONOCYTES 9.4 % (2-11); NEUTROPHILS 73.6 % (40-80); PLATELET COUNT 361 10x3/uL (130-400); RBC 3.98 10x6/uL (4.20-6.10); RDW 15.3 % (11.5-14.5); WBC 17.2 10x3/uL (4.8-10.8)
[2019-08-25 06:15] LABS: ALBUMIN 1.5 g/dL (3.4-5.0); ALKALINE PHOSPHATASE 86 U/L (46-116); ALT (SGPT) 34 U/L (10-68); BILIRUBIN - TOTAL 0.52 mg/dL (0.2-1.3); CALC OSMOLALITY 280 mosm/kg (275-300); CALCIUM 7.5 mg/dL (8.5-10.1); CHLORIDE - SERUM 104 mmol/L (98-107); CREATININE - SERUM 0.7 mg/dL (0.6-1.3); GLUCOSE 128 mg/dL (74-106); POTASSIUM - SERUM 3.2 mmol/L (3.5-5.1); PROTEIN - SERUM 5.6 g/dL (6.4-8.2); SODIUM 140 mmol/L (136-145); UREA NITROGEN 13 mg/dL (7-18); eGFR NON AFRICAN AMERICAN > 90 mL/min (90-120)
[2019-08-25] MEDS ORDERED: PROZAC20 MG PO (06:38)
[2019-08-25] MEDS ORDERED: REMERON30 MG PO (06:38)
[2019-08-25] MEDS ORDERED: GABAPENTIN100 MG PO (06:38)
[2019-08-25] MEDS ORDERED: LIPITOR20 MG PO (06:38)
--- NOTE | 2019-08-25 06:43 | NUR ---
SPOKE WITH PTS SISTER, INFORMED HER THAT PT WAS AGGRESSIVE LAST NIGHT AND NOT HAPPY TO BE IN THE HOSPITAL. PTS SISTER STATED THAT HER BROTHER DOESTN USUALLY ACT LIKE THAT, EVERSINCE HE WAS TAKEN OFF OF HIS PROZAC LAST MONTH HE HAS CHANGED AND NEEDS TO BE PUT BAKC ON HIS HOME MEDS. UPDATED MEDICATION LIST AND INFORMED PTS SISTER THAT WE WILL HAVE PCP ADDRESS MEDICATION LIST.
[2019-08-25 08:40] VITALS: BP 93/47
--- NOTE | 2019-08-25 09:57 | NUR ---
PT STATING THAT HE WANTS TO , THAT HE IS VERY MISERABLE. GAVE 2MG OF MORPHINE FOR PAIN LEVEL OF 10/10. PT WANTED TO GET REPOSITIONED IN BED, SO I TOLD HIM THAT I NEEDED TO CALL SOMEONE TO COME HELP ME. PT STARTED SCREAMING OUT " YOU CAN'T DO ANYTHING, GET OUT OF MY ROOM. JUST LEAVE ME ALONE".
--- NOTE | 2019-08-25 10:07 | NUR ---
CALLED KIM ESTRADA APRN AND INFORMED HER THAT PT'S HOME MEDS WERE JUST PUT IN LAST NIGHT AND NEED TO BE ADDRESSED.
--- NOTE | 2019-08-25 10:37 | NUR ---
PT KEEPS SCREAMING OUT HELP. WHEN STAFF GOES IN TO TRY TO HELP PT, PT IS HATEFUL TO STAFF AND ONLY STATES THAT HE WANTS TO . NURSE AND ROOM SERVICE SERVER REPOSITIONED PT IN BED.
--- NOTE | 2019-08-25 11:05 | NUR ---
PT CONTINUES TO SCREAM OUT HELP, THREW CUPS OF WATER IN THE FLOOR, GAVE 10MG OF GEODONE AT THIS TIME. ALSO GAVE PROZAC AND NEUROTIN ORDRED. PT REFUSED TO LET THIS NURSE DO A COMPLETE PHYSICAL ASSESSMENT. STATED "DO NOT TOUCH ME, JUST LEAVE ME ALONE". CALL LIGHT IN REACH, BEDSIDE RAILS X2, BED ALARM ON, NAD NOTED, WILL CONTINUE TO MONITOR.
--- NOTE | 2019-08-25 12:05 | NUR ---
PT RESTING COMFORTABLY IN BED, SISTER AT BEDSIDE, CALL LIGHT IN REACH, NAD NOTED, WILL CONTINUE TO MONITOR.
[2019-08-25 12:23] VITALS: BP 84/47
--- NOTE | 2019-08-25 15:17 | NUR ---
OT NOTE: PT UNCOOPERATIVE AND REQUIRED CUES FOR LIMITED PARTICIPATION. PT COMPLETED SIMPLE FACE WASH WITH SETUP. PT EXHIBITED UE AROM WITH FUNCTIONAL TASK. PT COMPLETED SHIFTING WT IN BED FOR POSITIONING WITH SBA. [phone] THANK YOU, VIKASH BARAKAT
[2019-08-25 16:11] VITALS: BP 94/52
--- NOTE | 2019-08-25 16:52 | NUR ---
CHECKED PT FOR INCONT, PT WAS CLEAN, REPOSITIONED PT IN BED. DRESSING CHANGE TO RT HEEL. PT DENIES ANY NEEDS AT THIS TIME. SISTER AT BEDSIDE, NAD NOTED, WILL CONTINUE TO MONITOR.
--- NOTE | 2019-08-25 19:06 | NUR ---
EVENING ROUNDS COMPLETE. PT LAYING IN BED, FAMILY AT BEDSIDE. AAOX4. NO SIGNS OF DISTRESS. PT DENIES ANY PAIN OR NEEDS AT THIS TIME. CL IN REACH, BED IN LOWEST POSITION.
[2019-08-25 20:00] VITALS: BP 91/49
[2019-08-26] VITALS (7 sets, daily range): BP systolic 102–121; BP diastolic 53–63
[2019-08-26 07:39] LABS: ALBUMIN 1.5 g/dL (3.4-5.0); ALKALINE PHOSPHATASE 85 U/L (46-116); ALT (SGPT) 26 U/L (10-68); BILIRUBIN - TOTAL 0.45 mg/dL (0.2-1.3); CALCIUM 7.3 mg/dL (8.5-10.1); CARBON DIOXIDE 28.8 mmol/L (21.0-32.0); CHLORIDE - SERUM 104 mmol/L (98-107); CREATININE - SERUM 0.6 mg/dL (0.6-1.3); POTASSIUM - SERUM 3.6 mmol/L (3.5-5.1); PROTEIN - SERUM 5.2 g/dL (6.4-8.2); SODIUM 139 mmol/L (136-145); UREA NITROGEN 11 mg/dL (7-18); eGFR NON AFRICAN AMERICAN > 90 mL/min (90-120)
--- NOTE | 2019-08-26 07:43 | NUR ---
PT RESTING, RR EVEN AND UNLABORED ON 4L NC. SISTER @ BEDSIDE. NO DISTRESS NOTED. CALL LIGHT WITHIN REACH. BED IN LOWEST POSITION. WILL CONTINUE TO MONITOR.
[2019-08-26 07:45] LABS: BASOPHILS 0.2 % (0-2); HEMATOCRIT 35.9 % (42.0-54.0); HEMOGLOBIN 11.6 g/dL (13.5-17.5); IMMATURE GRANULOCYTES 1.4 % (0-5); LYMPHOCYTES 11.6 % (15-50); MCH 28.8 pg (26.0-34.0); MCHC 32.3 g/dL (31.0-37.0); MCV 89.1 fL (80.0-100.0); MEAN PLATELET VOLUME 8.7 fL (7.4-10.4); MONOCYTES 7.1 % (2-11); NEUTROPHILS 75.7 % (40-80); PLATELET COUNT 408 10x3/uL (130-400); RBC 4.03 10x6/uL (4.20-6.10); RDW 15.3 % (11.5-14.5); WBC 18.4 10x3/uL (4.8-10.8)
[2019-08-26 07:53] LABS: CALC OSMOLALITY 278 mosm/kg (275-300); GLUCOSE 130 mg/dL (74-106)
--- NOTE | 2019-08-26 09:30 | NUR ---
PT LAYING IN BED. MOUTH BREATHING AND SOB. O2 96% ON 4L. MOUTH IS DRY, ORAL CARE PERFORMED. PT WAS NOT ABLE TO SPEAK ABOVE A WHISPER. STATED, "I FEEL LIKE I'M GOING TO TODAY". VSS AT THIS TIME. BED BATH RECIEVED LINENS AND GOWN CHANGED. SAM PENA MADE AWARE OF CHANGES.
--- NOTE | 2019-08-26 14:54 | NUR ---
Nutrition Follow-up: Diet: Regular, Mech Soft PO intake: 0-50% Wt: 156# (08/24 - bedscale); 147# (08/22 - bedscale) Last BM: 08/24 per chart Labs noted: Glu 130, Ca 7.3, Alb 1.5 Meds noted: Remeron, KDur -+Ensure with meals. -RD following.
--- NOTE | 2019-08-26 18:30 | NUR ---
I CONCUR WITH THE WICK AND BASE ASSEMBLER ASSESMENT OF THIS PATIENT.
--- NOTE | 2019-08-26 19:25 | NUR ---
PT RESTING IN BED WITH EYES CLOSED RR EVEN AND UNLABORED. NO S/S OF DISTRESS AT THIS TIME. BED LOW CALL LIGHT WITHIN REACH. WILL CONTINUE TO MONITOR.
[2019-08-27 04:00] VITALS: BP 108/59
--- NOTE | 2019-08-27 04:22 | NUR ---
I have reviewed this patient and I concur with the Shift Assessment completed by the Licensed Practical Nurse today this shift.
[2019-08-27 06:16] LABS: BASOPHILS 0.2 % (0-2); EOSINOPHILS 4.3 % (0-7); HEMATOCRIT 36.7 % (42.0-54.0); HEMOGLOBIN 12.1 g/dL (13.5-17.5); IMMATURE GRANULOCYTES 1.1 % (0-5); LYMPHOCYTES 12.5 % (15-50); MCH 29.1 pg (26.0-34.0); MCV 88.2 fL (80.0-100.0); MEAN PLATELET VOLUME 8.5 fL (7.4-10.4); MONOCYTES 6.1 % (2-11); NEUTROPHILS 75.8 % (40-80); PLATELET COUNT 446 10x3/uL (130-400); RBC 4.16 10x6/uL (4.20-6.10); RDW 15.1 % (11.5-14.5); WBC 17.8 10x3/uL (4.8-10.8)
[2019-08-27 06:49] LABS: ALBUMIN 1.6 g/dL (3.4-5.0); ALKALINE PHOSPHATASE 93 U/L (46-116); ALT (SGPT) 23 U/L (10-68); BILIRUBIN - TOTAL 0.42 mg/dL (0.2-1.3); CALC OSMOLALITY 278 mosm/kg (275-300); CALCIUM 7.7 mg/dL (8.5-10.1); CARBON DIOXIDE 28.9 mmol/L (21.0-32.0); CHLORIDE - SERUM 103 mmol/L (98-107); CREATININE - SERUM 0.7 mg/dL (0.6-1.3); GLUCOSE 128 mg/dL (74-106); MAGNESIUM - SERUM 1.7 mg/dL (1.8-2.4); PHOSPHOROUS 2.2 mg/dL (2.5-4.9); POTASSIUM - SERUM 3.4 mmol/L (3.5-5.1); PRO BNP 8940 pg/mL (0-450); PROTEIN - SERUM 5.7 g/dL (6.4-8.2); SODIUM 139 mmol/L (136-145); UREA NITROGEN 10 mg/dL (7-18); eGFR NON AFRICAN AMERICAN > 90 mL/min (90-120)
--- NOTE | 2019-08-27 07:36 | NUR ---
REPORT RECIEVED. PT RESTING QUIETLY WITH EYES CLOSED, RISE AND FALL OF CHEST NOTED. PT HAS A R UPPER ARM PICC THAT IS SL. HE ALSO HAS A SAVAGE DRAINING URINE. BED LOCKED AND IN LOWEST POSITION, CALL LIGHT WITHIN REACH. WILL CTM
[2019-08-27 10:22] VITALS: BP 105/60
[2019-08-27 13:53] VITALS: BP 106/60
--- NOTE | 2019-08-27 14:32 | NUR ---
OT NOTE: PRIOR TO ENTERING PTS ROOM, THIS THERAPIST WAS IMMEDIATELY GREETED BY PTS SISTER. SHE WAS EXTREMELY ANXIOUS AND AGITATED. IN MY ATTEMPTS TO CALM HER DOWN, SHE BECAME EVEN MORE AGITATED. IN HER RAPID VOICING OF CONCERNS, SHE EXPLAINED THAT HER BLOOD PRESSURE WAS HIGH, SHE FELL IN HER CLOSET THIS MORNING, SHE DID NOT CARE IF SHE BECAUSE NOTHING WAS IMPORTANT EXCEPT FOR HELPING HER BROTHER, ETC... FINALLY HER CAME AND HAD HER SIT DOWN WHILE BOTH PT AND OT ATTEMPTED TO SEE PT. PT WAS VERY LETHARGIC.. 02 SATS WERE 95..UNABLE TO WAKE UP FOR LONG ENOUGH PERIOD TO PERFORM EOB SITTING OR EXS. STRENGTH ASSESSMENT TO UE/LE.. UES WERE VERY WEAK COMPARED TO LE. ATTEMPTED BED MOB HOWEVER, DUE TO LETHARGY, PT WAS UNABLE TO ASSIST. HOWEVER, AT LEAST HE WAS NOT AGITATED OR AGGRESSIVE HE WAS EARLIER IN THE WEEK. DISCUSSED WITH PTS SISTER AND EXPLAINED THAT WE WOULD CONTINUE TO ATTEPT TO TREAT PT LONG HE WAS COOPERATIVE. EXPLAINED THAT IT WAS NOT SAFE TO GET PT UP TO CHAIR SHE WAS WANTING, DUE TO LETHARGY BENITA ARCE, OTR/L [phone]
--- NOTE | 2019-08-27 15:53 | NUR ---
I have reviewed this patient and I concur with the Shift Assessment completed by the Licensed Practical Nurse today this shift.
--- NOTE | 2019-08-27 16:14 | MORECARE ---
CASE MANAGEMENT DISCHARGE SUMMARY PATIENT: SHERIDAN SOLIS UNIT: [id number] ADM DATE: 08/21/19 AGE: 79 : 40 SEX: M ROOM/BED: D.2135 AUTHOR: ERIBERTO DAVIS PHYSICIAN: REFERRING PHYSICIAN: ROSAS FINN MD DATE OF SERVICE: 08/27/19 Discharge Plan Patient Name: SHERIDAN SOLIS [facility] [facility] 1940 Planned Disposition: Hospice Medical Facility Anticipated Discharge Date: Discharge Date: Expected LOS: Initial Reviewer: [email or web address] Initial Review Date: 08/27/2019 Generated: 08/27/19 5:13 pm DCP- Discharge Planning Updated by [email or web address]: Sandra Wade on 08/26/19 4:[address] LATE ENTRY 08/24/19 CM attempted to see patient regarding discharge planning. Patient refused to speak to CM and told her "get out of my room". CM will continue to follow and assist as needed with discharge planning / needs Patient Name: SHERIDAN SOLIS Page [phone] at 1614 All edits/amendments must be made on the electronic document DICTATION DATE: 08/27/191612 GETTERER: JIHAN 08/27/191612 RPT#: [id number] DC DATE: STATUS: ADM IN [facility] [address] [place] [address] END OF REPORT
[2019-08-27 16:19] VITALS: BP 95/59
--- NOTE | 2019-08-27 16:25 | MORECARE ---
CASE MANAGEMENT DISCHARGE SUMMARY PATIENT: SHERIDAN SOLIS UNIT: [id number] ADM DATE: 08/21/19 AGE: 79 : 40 SEX: M ROOM/BED: D.0045 AUTHOR: RYANDOC PHYSICIAN: REFERRING PHYSICIAN: ROSAS FINN MD DATE OF SERVICE: 08/27/19 Discharge Plan Patient Name: SHERIDAN SOLIS [facility] [facility] 1940 Planned Disposition: Hospice Medical Facility Anticipated Discharge Date: Discharge Date: Expected LOS: Initial Reviewer: [email or web address] Initial Review Date: 08/27/2019 Generated: 08/27/19 5:25 pm Comments DCP- Discharge Planning Updated by [email or web address]: Shayne Mejia on 08/27/19 3:[address] Patient Name: SHERIDAN SOLIS Admission Status: Elective Accout number: [id number] Admission Date: 08-21-2019 : 1940 Admission Diagnosis:SEPSIS, UNSPECIFIED ORGANISM Attending: ROSAS FINN Current LOS: 6 Anticipated DC Date: Planned Disposition: Hospice Medical Facility Primary Insurance: MEDICARE A & B PLANNED EXTERNAL PROVIDER: [facility] Discharge Planning Comments: CM MET WITH PT AND SISTERTROY IN ROOM TO DISCUSS DISCHARGE PLANNING AND NEEDS. PT APPEARS TO BE SLEEPING, BUT WILL RESPOND IF DIRECTLY ENGAGED IN CONVERSATION. PT'S SISTER REPORTS PT CAN HEAR AND UNDERSTAND EVERYTHING. PT HAS BEEN ASKING TO . PT LIVES AT THE [facility]. HE HAS ASSISTANCE WITH MEDICATION MANAGEMENT, MEAL PREPARATION AND TRANSPORTATION. PT HAS ROLLATOR WALKER AND DIAPERS. PT HAS NO MEDICAL EQUIPMENT PROVIDER PREFERENCE. PT'S SISTER WOULD LIKE TO CONSULT HOSPICE TO DISCUSS OPTIONS. PROVIDER LISTING OFFERED AND DISCUSSED. THEY WOULD LIKE TO CONSULT WITH [facility], CHOICE SIGNED. IMPORTANT MESSAGE FROM MEDICARE PROVIDED AND EXPLAINED. CM NOTIFIED SAM BEAR, OBTAINED HOSPICE CONSULT ORDER. CM CALLED [facility], , SPOKE TO ECHO WHO WILL HAVE ENDY EVALUATE FAMILY AND MEET WITH PT THIS EVENING. CM FAXED REFERRAL TO [facility] AT [phone]. Horticultural Farmer: Shayne Mejia DCP- Discharge Planning Updated by [email or web address]: Sandra Wade on 08/26/19 4:[address] LATE ENTRY 08/24/19 CM attempted to see patient regarding discharge planning. Patient refused to speak to CM and told her "get out of my room". CM will continue to follow and assist as needed with discharge planning / needs DCPIA - Discharge Planning Initial Assessment Updated by [email or web address]: Shayne Mejia on 08/27/19 4:14 pm * Is the patient Alert and Oriented? No * How many steps to enter\\exit or inside your home? NONE * PCP DR. RODRIGUES * Pharmacy [facility] * Preadmission Environment Assisted Living * Facility Name [facility] [place] * ADLs Partial Dependent * Partial ADLs (Assistance needed) Medication Management * Equipment Rolling Walker * Other Equipment INCONTINENCE SUPPLIES NO MEDICAL EQUIPMENT PROVIDER PREFERENCE * List name and contact numbers for known caregivers / representatives who currently or will assist patient after discharge: TROY LEMONS, SISTER, * Verbal permission to speak to the caregivers and representatives has been obtained from the patient. N/A * Community resources currently utilized None * Please name any agencies selected above. NONE * Additional services required to return to the preadmission environment? No * Can the patient safely return to the preadmission environment? Yes * Has this patient been hospitalized within the prior 30 days at any hospital? No External Providers External Provider[facility] Next Contact Date: 08/27/2019 Service Request Date: Service Type: Resolution: Reviewer: Comments: Last DP export: 08/27/19 3:14 pm Patient Name: SHERIDAN SOLIS Page [phone] at 1625 All edits/amendments must be made on the electronic document DICTATION DATE: 08/27/19 1624 RESIST COATER DEVELOPER: JIHAN 08/27/19 1625 RPT#: [id number] DC DATE: STATUS: ADM IN [facility] [address] [place] [address] END OF REPORT
--- NOTE | 2019-08-27 19:33 | NUR ---
RECEIVED UP IN BED WITH EYES CLOSED. ALERT AND ORIENTED WITH EYES CLOSED. DOES OPEN EYES MOMENTARILY. STATES ' I WANT TO ". WHEN ASKED WHY STATED " THERE'S SO MUCH WRONG WITH ME". ASKED IF HE WAS ALONE AND STATED "YES". EXPLAINED TO HIM THAT HE NEEDED TO HELP US IF HE WANTED TO FEEL BETTER. DID NOT ANSWER. O2 @ 4 LITERS PER HF. RIGHT UPPER ARM PICC LINE SL.. TELEMETRY IN PLACE. DENIES ANY NEEDS AT THIS TIME.
[2019-08-27 20:30] VITALS: BP 111/48
[2019-08-28 00:30] VITALS: BP 129/57
[2019-08-28 04:30] VITALS: BP 95/53
[2019-08-28 05:43] LABS: BASOPHILS 0.2 % (0-2); EOSINOPHILS 3.9 % (0-7); HEMATOCRIT 37.5 % (42.0-54.0); HEMOGLOBIN 12.4 g/dL (13.5-17.5); IMMATURE GRANULOCYTES 0.9 % (0-5); LYMPHOCYTES 14.3 % (15-50); MCH 29.4 pg (26.0-34.0); MCHC 33.1 g/dL (31.0-37.0); MCV 88.9 fL (80.0-100.0); MEAN PLATELET VOLUME 8.3 fL (7.4-10.4); MONOCYTES 6.2 % (2-11); NEUTROPHILS 74.5 % (40-80); PLATELET COUNT 492 10x3/uL (130-400); RBC 4.22 10x6/uL (4.20-6.10); RDW 15.2 % (11.5-14.5); WBC 17.4 10x3/uL (4.8-10.8)
[2019-08-28 06:05] LABS: ALBUMIN 1.6 g/dL (3.4-5.0); ALKALINE PHOSPHATASE 89 U/L (46-116); ALT (SGPT) 18 U/L (10-68); BILIRUBIN - TOTAL 0.46 mg/dL (0.2-1.3); CALC OSMOLALITY 278 mosm/kg (275-300); CALCIUM 7.7 mg/dL (8.5-10.1); CHLORIDE - SERUM 104 mmol/L (98-107); CREATININE - SERUM 0.7 mg/dL (0.6-1.3); GLUCOSE 121 mg/dL (74-106); POTASSIUM - SERUM 3.8 mmol/L (3.5-5.1); PROTEIN - SERUM 5.9 g/dL (6.4-8.2); SODIUM 139 mmol/L (136-145); UREA NITROGEN 12 mg/dL (7-18); eGFR NON AFRICAN AMERICAN > 90 mL/min (90-120)
--- NOTE | 2019-08-28 07:06 | NUR ---
PT AWAKE AND ORIENTED, HAS EATING HIS SECOND CUP OF ORANGE JELLO AND DRINKNING HIS ENSURE. STATES HE'S FEELING BETTER THIS MORNING AND WILL HAPPILY TAKE ALL HIS MEDICATIONS. NO COMPLAINTS/CONCERNS, ALL QUESTIONS ANSWERED TO THE BEST OF MY ABILITY. CL IN REACH, SRX2.
[2019-08-28 07:56] VITALS: BP 95/56
--- NOTE | 2019-08-28 09:48 | NUR ---
PT AWAKE AND ORIENTED, TOOK MORNING MEDICAITONS WITHOUT COMPLAINT OR DIFFICULTY. STATES HE DOES NOT WANT HOSPICE AND IS FEELING MUCH BETTER, THAT HE WAS JUST IN A FUNK AND IS NOT READY TO . EXCITED TO SEE HIS SISTER LATER TODAY. NO COMPLAITNS OR CONCERNS. CLIN JAYY,S RX2.
--- NOTE | 2019-08-28 09:55 | NUR ---
I have reviewed this patient and I concur with the Shift Assessment completed by the Licensed Practical Nurse today this shift.
[2019-08-28 11:18] VITALS: BP 101/53
--- NOTE | 2019-08-28 12:59 | NUR ---
PT SISTER AT BEDSIDE. NO COMPLAINTS OR CONCERNS AT THIS TIME. ALL QUESTIONS ANSWERED TO THE BEST OF MY ABILITY. CL IN REACH, SRX2.
--- NOTE | 2019-08-28 15:12 | NUR ---
PT AWAKE AND OREINTED, SISTER VISITED FOR A LONG TIME. PT STATES HE'S HAD AN IMPROVED APPITITE. NO COMPLAINTS/CONCERNS AT THIS TIME. CL IN REACH, SRX2
[2019-08-28 16:02] VITALS: BP 91/48
[2019-08-28 20:30] VITALS: BP 83/45
--- NOTE | 2019-08-28 21:38 | NUR ---
RECEIVED UP IN BED WITH EYES OPEN. ALERT AND ORIENTED STATING " I FEEL MUCH BETTER TODAY."TRYING TO OPEN AN ENSURE. ASSISTED WITH OPENING ENSURE. F/C PATENT WITH CLEAR YELLOW URINE DRAINING TO BEDSIDE BAG. O2 @ 4 LITERS PER HIGH FLOW CANNULA. PICC LINE TO RIGHT UPPER ARM SL.. TELEMETRY IN PLACE. BRUCE AREA TO RIGHT AND LEFT SIDE OF BUTTOCKS. SMALL NECROTIC AREA TO COCCYX. SG TO RIGHT FOOT. FEET ELEVATED ON PILLOW. DENIES ANY OTHER NEEDS.
[2019-08-29 00:30] VITALS: BP 79/41
[2019-08-29 04:30] VITALS: BP 98/51
[2019-08-29 05:22] LABS: BASOPHILS 0.2 % (0-2); HEMATOCRIT 36.7 % (42.0-54.0); HEMOGLOBIN 11.8 g/dL (13.5-17.5); LYMPHOCYTES 15.6 % (15-50); MCH 28.6 pg (26.0-34.0); MCHC 32.2 g/dL (31.0-37.0); MCV 88.9 fL (80.0-100.0); MEAN PLATELET VOLUME 8.4 fL (7.4-10.4); MONOCYTES 7.1 % (2-11); NEUTROPHILS 72.1 % (40-80); PLATELET COUNT 514 10x3/uL (130-400); RBC 4.13 10x6/uL (4.20-6.10); RDW 15.2 % (11.5-14.5); WBC 17.4 10x3/uL (4.8-10.8)
[2019-08-29 05:50] LABS: ALBUMIN 1.6 g/dL (3.4-5.0); ALKALINE PHOSPHATASE 82 U/L (46-116); ALT (SGPT) 21 U/L (10-68); BILIRUBIN - TOTAL 0.28 mg/dL (0.2-1.3); CALC OSMOLALITY 282 mosm/kg (275-300); CALCIUM 7.5 mg/dL (8.5-10.1); CARBON DIOXIDE 26.5 mmol/L (21.0-32.0); CHLORIDE - SERUM 105 mmol/L (98-107); CREATININE - SERUM 0.6 mg/dL (0.6-1.3); MAGNESIUM - SERUM 1.8 mg/dL (1.8-2.4); PHOSPHOROUS 1.9 mg/dL (2.5-4.9); POTASSIUM - SERUM 3.6 mmol/L (3.5-5.1); PROTEIN - SERUM 5.8 g/dL (6.4-8.2); SODIUM 139 mmol/L (136-145); UREA NITROGEN 15 mg/dL (7-18); eGFR NON AFRICAN AMERICAN > 90 mL/min (90-120)
[2019-08-29 05:52] LABS: GLUCOSE 174 mg/dL (74-106)
[2019-08-29 07:59] VITALS: BP 101/59
--- NOTE | 2019-08-29 08:43 | NUR ---
PT AWAKE AND ORIENTED THIS MORNING. HE STATES HE JUST GENERALLY DOES NOT FEEL WELL AND HAS NO DESIRE TO EAT OR DO ANYTHING BUT SLEEP TODAY. HE TOOK HIS HIS MEDICATION WITHOUT DIFFICULTY BUT REFUSED BREAKFAST. WILL CONT. TO MONITOR. NO FAMILY PRESENT AT BEDSIDE AT THIS TIME. CL IN REACH, SRX2.
--- NOTE | 2019-08-29 09:26 | NUR ---
PT DENIES PHYSICAL THERAPY AT THIS TIME. STATES HE'S FEELING SICK AND JUST WANTS REST. CL INR EACH,SRX2. NO FAMILY PRESENT AT BEDSIDE.
--- NOTE | 2019-08-29 09:42 | NUR ---
I have reviewed this patient and I concur with the Shift Assessment completed by the Licensed Practical Nurse today this shift.
--- NOTE | 2019-08-29 10:15 | NUR ---
PT RESTING PEACEFULLY, EYES CLOSED, BREATHS EVEN/REGULAR AND UNLABORED. NO SIGNS OR SYMTPOMS OF ACUTE DISTRESS NOTED AT THIS TIME. CL IN REACH,SRX2. NO FMAILY AT BEDSIDE.
[2019-08-29 12:13] VITALS: BP 93/49
--- NOTE | 2019-08-29 14:59 | NUR ---
PT HAS BEEN ASLEEP ALL DAY, WAKING ONLY FOR MEDICATIONS. FAMILY VISITED BUT HE WAS UNABLE TO STAY AWAKE FOR A LONG LENGTH OF TIME. STATES "I'M JUST REALLY TIRED TODAY. I DON'T FEEL GOOD". CURRENTLY RESTING PEACEFULLY. BREATHS EVEN REGUALR AND UNLABORED. NO SIGNS/SYMTPOMS OF ACUTE DISTRESS NOTED AT THIS TIME. NO FAMILY PRESENT AT BEDSIDE. CL IN REACH, SRX2.
[2019-08-29 17:09] VITALS: BP 91/57
--- NOTE | 2019-08-29 18:52 | NUR ---
PT RESTING PEACEFULLY. BREATHS EVEN/REGULAR AND UNLABORED. HAS BEEN RESTING ALL DAY, WAKES EASILY TO VOCAL STIMULATION BUT FALLS QUICKLY BACK TO SLEEP. SISTER CALLED AND STATED SHE'D BE BY TOMORROW, BROTHER IN LAW HAS VISITED TWICE. CL IN REACH, SRX2.
--- NOTE | 2019-08-29 19:17 | NUR ---
RECEIVED UP IN BED WITH EYEYS CLOSED. EASILY AROUSES WITH VERBAL STIMULI. ALERT AND ORIETNED X4. REMAINS BEDFAST. STATED " I HAVE HAD A VERY BAD DAY". O2@ 3 LITERS PER N/C. PICC LINE TO RIGHT UPPER ARM. TELEMETRY IN PLACE. DSG TO RIGHT GROIN AREA AND TWO BLISTERS AT SITE WITH ONE SLIGHTLY UNDER DSG. WOUND CARE CONSULT IN PLACE FOR COCCYX. SMALL BLACK AREA TO COCCYX. DENIES ANY NEEDS AT THIS TIME.
[2019-08-29 20:00] VITALS: BP 88/48
[2019-08-30] VITALS: BP 89/46
[2019-08-30 04:00] VITALS: BP 95/54
[2019-08-30 06:51] LABS: BASOPHILS 0.3 % (0-2); EOSINOPHILS 5.5 % (0-7); HEMATOCRIT 37.7 % (42.0-54.0); HEMOGLOBIN 12.5 g/dL (13.5-17.5); IMMATURE GRANULOCYTES 0.9 % (0-5); LYMPHOCYTES 18.6 % (15-50); MCH 29.3 pg (26.0-34.0); MCHC 33.2 g/dL (31.0-37.0); MCV 88.5 fL (80.0-100.0); MEAN PLATELET VOLUME 8.3 fL (7.4-10.4); MONOCYTES 7.8 % (2-11); NEUTROPHILS 66.9 % (40-80); PLATELET COUNT 466 10x3/uL (130-400); RBC 4.26 10x6/uL (4.20-6.10); RDW 15.4 % (11.5-14.5); WBC 16.3 10x3/uL (4.8-10.8)
[2019-08-30 07:12] LABS: ALBUMIN 1.7 g/dL (3.4-5.0); ALKALINE PHOSPHATASE 94 U/L (46-116); ALT (SGPT) 17 U/L (10-68); BILIRUBIN - TOTAL 0.48 mg/dL (0.2-1.3); CALC OSMOLALITY 273 mosm/kg (275-300); CALCIUM 7.8 mg/dL (8.5-10.1); CARBON DIOXIDE 25.3 mmol/L (21.0-32.0); CHLORIDE - SERUM 105 mmol/L (98-107); CREATININE - SERUM 0.7 mg/dL (0.6-1.3); GLUCOSE 107 mg/dL (74-106); PROTEIN - SERUM 6.1 g/dL (6.4-8.2); SODIUM 137 mmol/L (136-145); UREA NITROGEN 13 mg/dL (7-18); eGFR NON AFRICAN AMERICAN > 90 mL/min (90-120)
[2019-08-30 08:00] VITALS: BP 97/48
--- NOTE | 2019-08-30 11:13 | EC ---
PATIENT:SHERIDAN SOLIS DATE OF SERVICE: 08/21/19 SEX: M MEDICAL RECORD: [id number] DATE OF : [birth year] LOCATION:D.M2 D.213 AGE OF PATIENT: 79 ADMISSION DATE: 08/21/19 REFERRING PHYSICIAN: INTERPRETING PHYSICIAN: RAUL REDDY MD ECHOCARDIOGRAM REPORT ECHO CHARGES 4 ECHO COMPLETE Date: 08/21/19 CLINICAL DIAGNOSIS: INCREASED TROPONIN, ASSESS EF ECHOCARDIOGRAPHIC MEASUREMENTS (adult normal given) AC root (d.<3.7cm) 3.5 cm LV Septum d (<1.2 cm> 1.2 cm Valve Excursion 1.9 cm LV Septum (systole) 1.3 cm Left Atria (s.<4.0cm> 3.3 cm LVPW d(<1.2cm) 1.2 cm RV (d.<2.3cm) 3.8 cm LVPW (sytole) 1.4 cm LV diastole(<5.6CM) 5.2 cm MV E-F(>70mm/sec) cm LV systole 4.3 cm LVOT Diameter 1.6 cm MV exc.(>10mm) 1.3 cm Est.ejection fraction (50-75%) % DOPPLER: LVIT cm/sec A 55.0 cm/sec E 74.0 cm/sec LA cm/sec RVSP 31 mmHg LVOT 119 cm/sec AOP1/2T m/s Asc. Ao 132 cm/sec RVOT 65 cm/sec RA cm/sec PA 85 cm/sec AV Gradient Peak 6.95 mmHg AV Mean 4.31 mmHg AV Area 2.0 cm MV Gradient Peak 2.81 mmHg MV Mean 1.11 mmHg MV Area cm COMMENTS: Urgent Care: [facility] Grain Elevator Motor Starter: 1 Dr. Reddy TAPE# PACS Pericardial Effusion N DATE OF SERVICE: ECHOCARDIOGRAM FINDINGS: 1. Left ventricular chamber size is within normal limits. Left ventricular systolic function is mild to moderately reduced, overall ejection fraction 35%. 2. Left atrium, right atrium, and right ventricle chamber sizes are within normal limits. 3. Valvular structures have normal structure and motion. ECHOCARDIOGRAM REPORT [id number] SHERIDAN SOLIS 4. Doppler interrogation reveals moderate mitral regurgitation, mild tricuspid regurgitation, no other valvular insufficiency or stenosis. Pulmonary systolic pressure is estimated at 31 mmHg. 5. No evidence of pericardial effusion or left ventricular thrombus. TRANSINT:[id number] Voice Confirmation ID: [id number] DOCUMENT ID: [id number] RAUL REDDY MD at 1113 CC: [id number] DICTATION DATE: 08/22/19 1257 BRAZER PRODUCTION LINE: 08/22/19 1350 ADM IN [facility] [address] [place] [address]
--- NOTE | 2019-08-30 11:13 | CN ---
PATIENT NAME:SHERIDAN SOLIS MEDICAL RECORD: [id number] : 40 LOCATION:[facility] D.2135 ADMIT DATE: 08/21/19 ACCOUNT: [id number] CONSULTING PHYSICIAN: RAUL BURKETT MD REFERRING PHYSICIAN: ROSAS FINN MD DATE OF CONSULTATION: 08/22/2019 CARDIOLOGY CONSULTATION DIAGNOSES: 1. Non-Q-wave myocardial infarction. 2. Coronary artery disease. 3. Status post coronary artery bypass graft surgery, 4-vessel, 2013. 4. Urosepsis. HISTORY OF PRESENT ILLNESS: Mr. Solis presents with hypotension and urosepsis, has an elevated troponin. He does have a history of coronary artery disease, coronary artery bypass graft surgery in 2013. He has had some mild chest pressure over the past few days, up until then he had no real chest pain or chest pressure. PHYSICAL EXAMINATION: CONSTITUTIONAL/GENERAL APPEARANCE: Well nourished, well developed, appears stated age. EYES: Lids and conjunctivae noninjected. No discharge. No pallor. ENT: Lips within normal limit. No cyanosis. No pallor. NECK: Carotid arteries, bilateral normal upstroke. No bruits. No thrills. No jugular venous pressure or distention. CERVICAL LYMPH NODES: Nontender. Nonenlarged. THYROID: Not enlarged. No nodules. CARDIOVASCULAR: Precordial exam, nondisplaced. No heaves or pericardial thrills. Rate and rhythm, regular. Heart sounds, normal S1, normal S2. No S3, no gallop, no rub. Systolic murmur, not heard. Diastolic murmur, not heard. RESPIRATORY: Respiratory effort, unlabored. Normal curvature. No thoracic deformity. No chest wall tenderness. Percussion, resonant. Auscultation, clear. No wheezes, no rales, no rhonchi. ABDOMEN: Soft, nondistended, nontender. No abdominal pain, no vomiting and normal appetite. MUSCULOSKELETAL: No joint tenderness, normal gait, normal tone. SKIN: Warm and dry. OVERALL IMPRESSION: Urosepsis with a non-Q-wave myocardial infarction. At this time, we will get an echocardiogram to see his overall left ventricular function. EKG. Continue supportive care with pressors. Most likely, we will proceed with coronary angiography once stable from the standpoint of urosepsis. TRANSINT:[id number] Voice Confirmation ID: [id number] DOCUMENT ID: [id number] CONSULT REPORT [id number] SHERIDAN SOLIS JEFFREY MD at 1113 CC: [id number] DICTATION DATE: 08/22/19 1338 ORAL THERAPIST: 08/22/19 1415 ADM IN [place] [id number] [place] [id number]
--- NOTE | 2019-08-30 11:13 | OP ---
PATIENT NAME: SHERIDAN SOLIS MEDICAL RECORD: [id number] :40 LOCATION:D.M2 D.2135 ADMISSION DATE:08/21/19 SURGEON: RAUL BURKETT MD DATE OF OPERATION: 08/24/2019 PROCEDURES: 1. PTCA stent vein graft to RCA. 2. Left heart catheterization. 3. Selective coronary angiography. 4. Vein graft angiography. 5. BROWN angiography. INDICATION: Non-Q-wave myocardial infarction. DESCRIPTION OF PROCEDURE: After informed consent was obtained and after a detailed description of the risks, benefits as well as alternative therapies, the patient elected to proceed with angiogram and angioplasty. The right femoral area was prepped and draped in normal sterile fashion. Right femoral artery was cannulated via modified Seldinger technique with placement of 6-Lao sheath. All catheters exchanged through this sheath. FINDINGS: Left ventriculogram was performed in standard 30 degree SMITH view, reveals mild cardiac wall motion, depression. Overall ejection fraction in the 40% range. SELECTIVE CORONARY ANGIOGRAPHY: 1. Left main is closed. 2. Right coronary is closed. 3. BROWN to the LAD is patent. Distal LAD is severely diffusely diseased. 4. Vein graft to the circumflex is patent. Distal circumflex is patent. 5. Vein graft to the RCA has 95% stenosis in the mid vessel. Distal RCA is patent, but diffusely diseased. PTCA STENT OF THE VEIN GRAFT TO THE RCA: Stents used were 3.5 x 30, 3.5 x 22, 3.5 x 30. Result was 0% residual stenosis. OVERALL IMPRESSION: Successful percutaneous transluminal coronary angioplasty stent of the vein graft to the right coronary artery going from 95% initial stenosis to 0% residual. TRANSINT:[id number] Voice Confirmation ID: [id number] DOCUMENT ID: [id number] RAUL BURKETT MD at 1113 CC: [id number] DICTATION DATE: 08/24/19 0843 HARBOUR MASTER: 08/24/19 1139 [place] [address]
[2019-08-30 12:00] VITALS: BP 92/52
--- NOTE | 2019-08-30 12:34 | MORECARE ---
CASE MANAGEMENT DISCHARGE SUMMARY PATIENT: SHERIDAN SOLIS UNIT: [id number] ADM DATE: 08/21/19 AGE: 79 : 40 SEX: M ROOM/BED: D.7355 AUTHOR: RYANDOC PHYSICIAN: REFERRING PHYSICIAN: ROSAS FINN MD DATE OF SERVICE: 08/30/19 Discharge Plan Patient Name: SHERIDAN SOLIS [facility] [facility] 1940 Planned Disposition: Inpatient Rehab Anticipated Discharge Date: Discharge Date: Expected LOS: Initial Reviewer: [id number] Initial Review Date: 08/27/2019 Generated: 08/30/19 1:33 pm Comments DCP- Discharge Planning Updated by [id number]: Shayne Mejia on 08/27/19 3:[address] Patient Name: SHERIDAN SOLIS Admission Status: Elective Accout number: [id number] Admission Date: 08-21-2019 : 1940 Admission Diagnosis:SEPSIS, UNSPECIFIED ORGANISM Attending: ROSAS FINN Current LOS: 6 Anticipated DC Date: Planned Disposition: Hospice Medical Facility Primary Insurance: MEDICARE A & B PLANNED EXTERNAL PROVIDER: [facility] Discharge Planning Comments: CM MET WITH PT AND SISTERTROY IN ROOM TO DISCUSS DISCHARGE PLANNING AND NEEDS. PT APPEARS TO BE SLEEPING, BUT WILL RESPOND IF DIRECTLY ENGAGED IN CONVERSATION. PT'S SISTER REPORTS PT CAN HEAR AND UNDERSTAND EVERYTHING. PT HAS BEEN ASKING TO . PT LIVES AT THE [facility] ASSISTED [facility]ING. HE HAS ASSISTANCE WITH MEDICATION MANAGEMENT, MEAL PREPARATION AND TRANSPORTATION. PT HAS ROLLATOR WALKER AND DIAPERS. PT HAS NO MEDICAL EQUIPMENT PROVIDER PREFERENCE. PT'S SISTER WOULD LIKE TO CONSULT HOSPICE TO DISCUSS OPTIONS. PROVIDER LISTING OFFERED AND DISCUSSED. THEY WOULD LIKE TO CONSULT WITH [facility], CHOICE SIGNED. IMPORTANT MESSAGE FROM MEDICARE PROVIDED AND EXPLAINED. CM NOTIFIED SAM BEAR, OBTAINED HOSPICE CONSULT ORDER. CM CALLED [facility], , SPOKE TO ECHO WHO WILL HAVE ENDY EVALUATE FAMILY AND MEET WITH PT THIS EVENING. CM FAXED REFERRAL TO [facility] AT [phone]. Thrill Performer: Shayne Mejia DCP- Discharge Planning Updated by [id number]: Sandra Wade on 08/26/19 4:[address] LATE ENTRY 08/24/19 CM attempted to see patient regarding discharge planning. Patient refused to speak to CM and told her "get out of my room". CM will continue to follow and assist as needed with discharge planning / needs DCPIA - Discharge Planning Initial Assessment Updated by [id number]: Shayne Mejia on 08/27/19 4:14 pm * Is the patient Alert and Oriented? No * How many steps to enter\\exit or inside your home? NONE * PCP DR. RODRIGUES * Pharmacy [facility] * Preadmission Environment Assisted Living * Facility Name [facility] IN [place] * ADLs Partial Dependent * Partial ADLs (Assistance needed) Medication Management * Equipment Rolling Walker * Other Equipment INCONTINENCE SUPPLIES NO MEDICAL EQUIPMENT PROVIDER PREFERENCE * List name and contact numbers for known caregivers / representatives who currently or will assist patient after discharge: SISTER NAVARRO, * Verbal permission to speak to the caregivers and representatives has been obtained from the patient. N/A * Community resources currently utilized None * Please name any agencies selected above. NONE * Additional services required to return to the preadmission environment? No * Can the patient safely return to the preadmission environment? Yes * Has this patient been hospitalized within the prior 30 days at any hospital? No Coverage Notice Reviewer: [id number] Taran Mejia Notice Issued Date-Time: 08/27/2019 15:20 Notice Type: Patient Choice Letter Notice Delivered To: Family Member Relationship to Patient: Rfid Specialist Name: TROY LEMONS Delivery Method: HAND - Hand Delivered Suha Days: Prior Verbal Notification: Recipient Understood Notice: Yes Recipient Signature: Yes Med Rec Note Co-signed by Attending: Coverage Notice Comment: [facility] Reviewer: [id number] Taran Mejia Notice Issued Date-Time: 08/27/2019 15:20 Notice Type: IM Discharge Notice Notice Delivered To: Family Member Relationship to Patient: Rfid Specialist Name: TROY LEMONS Delivery Method: - Suha Days: Prior Verbal Notification: Recipient Understood Notice: Recipient Signature: Med Rec Note Co-signed by Attending: Coverage Notice Comment: Last DP export: 08/27/19 3:25 pm Patient Name: SHERIDAN SOLIS Page [phone] at 1234 All edits/amendments must be made on the electronic document DICTATION DATE: 08/30/19 1233 TOY ELECTRIC TRAIN REPAIRER: DM 08/30/19 1233 RPT#: [id number] DC DATE: STATUS: ADM IN [facility] [address] [place] [address] END OF REPORT
--- NOTE | 2019-08-30 12:41 | MORECARE ---
CASE MANAGEMENT DISCHARGE SUMMARY PATIENT: SHERIDAN SOLIS UNIT: [id number] ADM DATE: 08/21/19 AGE: 79 : 40 SEX: M ROOM/BED: D.2135 AUTHOR: RYANDOC PHYSICIAN: REFERRING PHYSICIAN: ROSAS FINN MD DATE OF SERVICE: 08/30/19 Discharge Plan Patient Name: SHERIDAN SOLIS [facility] [facility] 1940 Planned Disposition: Inpatient Rehab Anticipated Discharge Date: Discharge Date: Expected LOS: Initial Reviewer: [id number] Initial Review Date: 08/27/2019 Generated: 08/30/19 1:41 pm Comments DCP- Discharge Planning Updated by [id number]: Shayne Mejia on 08/30/19 11:[address] Patient Name: SHERIDAN SOLIS Encounter No: [id number] : 1940 Primary Insurance: MEDICARE A & B Anticipated DC Date: Planned Disposition: Inpatient Rehab External Planned Provider: [facility] IN[facility] DCP follow-up note: CM SPOKE TO PT IN ROOM REGARDING HOSPICE CONSULT FROM FRIDAY. PT STATES HE HAS DECIDED THAT HE DOES NOT WANT HOSPICE AND WANTS AGRESSIVE TREATMENT TO RETURN TO HIS ASSISTED LIVING AT THE [facility]. CM DISCUSSED SENIOR LIVING AND INPATIENT REHAB OPTIONS AND LOCATIONS. PT WOULD LIKE TO BE CONSIDERED FOR INPATIENT REHAB AT [facility]. CM REQUESTED ORDER FOR INPATIENT REHAB PRESCREENING. CM NOTIFIED SAM [facility]AR. CM WAITING [facility]IENT [facility]AB PRESCREENING FROM [facility]. CHEO Bone DCP- Discharge Planning Updated by [id number]: Shayne Mejia on 08/27/19 3:[address] Patient Name: SHERIDAN SOLIS Admission Status: Elective Accout number: [id number] Admission Date: 08-21-2019 : 1940 Admission Diagnosis:SEPSIS, UNSPECIFIED ORGANISM Attending: ROSAS FINN Current LOS: 6 Anticipated DC Date: Planned Disposition: Hospice Medical Facility Primary Insurance: MEDICARE A & B PLANNED EXTERNAL PROVIDER: [facility] Discharge Planning Comments: CM MET WITH PT AND SISTERTROY IN ROOM TO DISCUSS DISCHARGE PLANNING AND NEEDS. PT APPEARS TO BE SLEEPING, BUT WILL RESPOND IF DIRECTLY ENGAGED IN CONVERSATION. PT'S SISTER REPORTS PT CAN HEAR AND UNDERSTAND EVERYTHING. PT HAS BEEN ASKING TO . PT LIVES AT THE [facility]. HE HAS ASSISTANCE WITH MEDICATION MANAGEMENT, MEAL PREPARATION AND TRANSPORTATION. PT HAS ROLLATOR WALKER AND DIAPERS. PT HAS NO MEDICAL EQUIPMENT PROVIDER PREFERENCE. PT'S SISTER WOULD LIKE TO CONSULT HOSPICE TO DISCUSS OPTIONS. PROVIDER LISTING OFFERED AND DISCUSSED. THEY WOULD LIKE TO CONSULT WITH [facility], CHOICE SIGNED. IMPORTANT MESSAGE FROM MEDICARE PROVIDED AND EXPLAINED. CM NOTIFIED SAM BEAR, OBTAINED HOSPICE CONSULT ORDER. CM CALLED [facility], , SPOKE TO ECHO WHO WILL HAVE ENDY EVALUATE FAMILY AND MEET WITH PT THIS EVENING. CM FAXED REFERRAL TO [facility] AT [phone]. Lamp Developer: Shayne Mejia DCP- Discharge Planning Updated by [id number]: Sandra Wade on 08/26/19 4:[address] LATE ENTRY 08/24/19 CM attempted to see patient regarding discharge planning. Patient refused to speak to CM and told her "get out of my room". CM will continue to follow and assist as needed with discharge planning / needs DCPIA - Discharge Planning Initial Assessment Updated by [id number]: Shayne Mejia on 08/27/19 4:14 pm * Is the patient Alert and Oriented? No * How many steps to enter\\exit or inside your home? NONE * PCP DR. RODRIGUES * Pharmacy [facility] * Preadmission Environment Assisted Living * Facility Name [facility] IN [place] * ADLs Partial Dependent * Partial ADLs (Assistance needed) Medication Management * Equipment Rolling Walker * Other Equipment INCONTINENCE SUPPLIES NO MEDICAL EQUIPMENT PROVIDER PREFERENCE * List name and contact numbers for known caregivers / representatives who currently or will assist patient after discharge: TROY LEMONS, , * Verbal permission to speak to the caregivers and representatives has been obtained from the patient. N/A * Community resources currently utilized None * Please name any agencies selected above. NONE * Additional services required to return to the preadmission environment? No * Can the patient safely return to the preadmission environment? Yes * Has this patient been hospitalized within the prior 30 days at any hospital? No Coverage Notice Reviewer: [id number] - Shayne Mejia Notice Issued Date-Time: 08/27/2019 15:20 Notice Type: Patient Choice Letter Notice Delivered To: Family Member Relationship to Patient: Face Boss Name: TROY LEMONS Delivery Method: HAND - Hand Delivered Suha Days: Prior Verbal Notification: Recipient Understood Notice: Yes Recipient Signature: Yes Med Rec Note Co-signed by Attending: Coverage Notice Comment: [facility] Reviewer: [id number] Taran Mejia Notice Issued Date-Time: 08/27/2019 15:20 Notice Type: IM Discharge Notice Notice Delivered To: Family Member Relationship to Patient: Sister Face Boss Name: TROY LEMONS Delivery Method: - Suha Days: Prior Verbal Notification: Recipient Understood Notice: Recipient Signature: Med Rec Note Co-signed by Attending: Coverage Notice Comment: Last DP export: 08/30/19 11:34 am Patient Name: SHERIDAN SOLIS Page [phone] at 1241 All edits/amendments must be made on the electronic document DICTATION DATE: 08/30/19 1241 EXTRUSION LINE OPERATOR: JIHAN 08/30/19 1241 RPT#: [id number] DC DATE: STATUS: ADM IN [facility] [address] [place] [address] END OF REPORT
--- NOTE | 2019-08-30 15:10 | NUR ---
Rehab Note- Acute Inpatient Rehab prescreen ordere received. The patient is a good inpatient acute rehab candidate if willing to participate in the required therapy. Will follow at this time. Thank you for this referral! Cora Escobedo RN Clinical Liaision, [facility] Rehab
--- NOTE | 2019-08-30 15:15 | NUR ---
OT NOTE: PT SITTING UP IN CHAIR. MORE ALERT AND REPORTS THAT HE IS FEELING BETTER. DID NOT MAKE ANY STATEMENTS OF DIEING DURING TMT SESSION. SIT TO STAND WITH MOD/MAX ASSIST. TRANSFER WITH MAX ASSIST; BED MOB WITH MOD/MAX ASSIST. AROM ACT WITH UE/LES. PT MUCH MORE MOTIVATED TO PARTICIPATE AND NO AGITATION NOTED THIS DATE. BENITA ARCE, OTR/L
[2019-08-30 16:00] VITALS: BP 86/49
--- NOTE | 2019-08-30 18:27 | NUR ---
OT NOTE: PT COMPLETED SUPINE TO SIT WITH SBA. PT COMPLETED EOB SITTING WITH SBA. PT COMPLETED UB HYGIENE TASKS WITH MIN A. PT COMPLETED UE AROM AXS. PT NOTED HE HAS DROP FOOT. PT REQUIRED MAX A FOR TRANSFER FROM BED TO CHAIR. [phone] THANK YOU, VIKASH BARAKAT
--- NOTE | 2019-08-30 19:22 | NUR ---
RECEIVED UP IN BED WITH EYES CLSOED. AROUSES WITH VERBAL STIMULI. O2@4L OER HF N/C. RESP EVEN AND UNLABORED. PICC LINE TO RIGHT UPPER ARM. NO EDEMA OBSERVED. DEIES ANY NEEDS AT THIS TIME.
[2019-08-30 20:00] VITALS: BP 97/51
[2019-08-31] VITALS: BP 86/52
[2019-08-31 04:20] LABS: BASOPHILS 0.2 % (0-2); EOSINOPHILS 5.2 % (0-7); HEMATOCRIT 36.9 % (42.0-54.0); HEMOGLOBIN 12.2 g/dL (13.5-17.5); IMMATURE GRANULOCYTES 0.7 % (0-5); LYMPHOCYTES 17.1 % (15-50); MCH 29.3 pg (26.0-34.0); MCHC 33.1 g/dL (31.0-37.0); MCV 88.5 fL (80.0-100.0); MEAN PLATELET VOLUME 8.3 fL (7.4-10.4); MONOCYTES 8.3 % (2-11); NEUTROPHILS 68.5 % (40-80); PLATELET COUNT 493 10x3/uL (130-400); RBC 4.17 10x6/uL (4.20-6.10); RDW 15.2 % (11.5-14.5); WBC 16.5 10x3/uL (4.8-10.8)
[2019-08-31 04:29] VITALS: BP 86/53
[2019-08-31 04:37] LABS: ALBUMIN 1.8 g/dL (3.4-5.0); ALKALINE PHOSPHATASE 93 U/L (46-116); ALT (SGPT) 18 U/L (10-68); BILIRUBIN - TOTAL 0.44 mg/dL (0.2-1.3); CALC OSMOLALITY 271 mosm/kg (275-300); CALCIUM 8.1 mg/dL (8.5-10.1); CARBON DIOXIDE 26.3 mmol/L (21.0-32.0); CHLORIDE - SERUM 103 mmol/L (98-107); CREATININE - SERUM 0.7 mg/dL (0.6-1.3); GLUCOSE 111 mg/dL (74-106); POTASSIUM - SERUM 4.1 mmol/L (3.5-5.1); PROTEIN - SERUM 6.3 g/dL (6.4-8.2); SODIUM 135 mmol/L (136-145); UREA NITROGEN 14 mg/dL (7-18); eGFR NON AFRICAN AMERICAN > 90 mL/min (90-120)
--- NOTE | 2019-08-31 07:15 | NUR ---
RECIEVE REPORT. RESTING IN BED WITH EYES CLOSED. RESPIRATIONS NONLABORED. NO SIGNS OF DISTRESS. SINUS RYTHM ON TELEMETRY. ELECTROLYTES WNL. CONTINUE PLAN OF CARE AND SAFETY PRECAUTIONS.
[2019-08-31 10:33] VITALS: BP 82/49
--- NOTE | 2019-08-31 11:44 | NUR ---
RIGHT HEEL SHOWS NO CHANGE. UNSTAGEABLE PRESSURE INJURY MEASURES 2CM X 2CM AND IS COVERED WITH ESCHAR. IT IS BEING CLEANSED, PAINTED WITH BETADINE AND COVERED WITH 4X4S DAILY. HEEL PROTECTORS ARE IN PLACE. RIGHT GROIN HAS A DRYING RUPTURED BLISTER. NO DRAINAGE OR ODOR NOTED. PERINEAL AREA IS RED AND PEELING. THIS APPEARS MOISTURE RELATED IRRITATED SKIN. CALMOSEPTINE CREAM IS BEING USED DAILY AND NEEDED WITH INCONTINENT EPISODES. LEFT COCCYX HAS A 1CM X 1CM DEEP TISSUE INJURY AND RIGHT COCCYX HAS A NONBLANCHABLE RED 2CM X 2CM AREA (STAGE 1 PRESSURE INJURY). THESE AREAS ARE BEING PROTECTED WITH MEPILEX SACRAL DRESSING. PT IS ON AN EGGCRATE MATTRESS AT THIS TIME, WHICH HE SAYS IS COMFORTABLE. WC HAS RECOMMENDED [facility] TO ASSIST IN RESPOSITIONING. WOUND CARE CONTINUES TO MONITOR.
--- NOTE | 2019-08-31 12:36 | MORECARE ---
CASE MANAGEMENT DISCHARGE SUMMARY PATIENT: SHERIDAN SOLIS UNIT: [id number] ADM DATE: 08/21/19 AGE: 79 : 40 SEX: M ROOM/BED: D.3675 AUTHOR: RYAN,DOC PHYSICIAN: REFERRING PHYSICIAN: ROSAS FINN MD DATE OF SERVICE: 08/31/19 Discharge Plan Patient Name: SHERIDAN SOLIS [facility] [facility] 1940 Planned Disposition: Inpatient Rehab Anticipated Discharge Date: 08/31/19 Discharge Date: Expected LOS: 10 Initial Reviewer: [id number] Initial Review Date: 08/27/2019 Generated: 08/31/19 1:35 pm Comments DCP- Discharge Planning Updated by [id number]: Shayne Mejia on 08/31/19 11:[address] Patient Name: SHERIDAN SOLIS Encounter No: [id number] : 1940 Primary Insurance: MEDICARE A & B Anticipated DC Date: 08-31-2019 Planned Disposition: Inpatient Rehab External Planned Provider: [facility] IN[facility] REH[facility] DCP follow-up note: CM MET WITH PT IN ROOM TO DISCUSS DISCHARGE TO REHAB AT [facility]. PT IN AGREEMENT WITH PLAN, STILL DOES NOT WANT HOSPICE. PT REPORTED HE WAS UNABLE TO SIGN THE CHOICE FORM HE WAS TIRED AND NEEDED REST HE HAD A BAD NIGHT LAST NIGHT. CM MET WITH CARE TEAM AT INTERDISCIPLINARY TEAM MEETING, SAM BEAR INFORMED TEAM THAT PT IS READY TO DISCARGE TO REHAB, [facility] REPORTS THEY WILL ACCEPT PT TODAY. CM NOTIFIED PT IN ROOM, PROVIDED AND DISCUSSED IMPORTANT MESSAGE FROM MEDICARE. CM CALLED PT'S SISTER, TROY, , TO NOTIFY OF REHAB DISCHARGE TODAY, PT INFORMED CM IN ROOM THAT HIS SISTER HAS DOCTORS APPOINTMENT TODAY AND MAY NOT BE AVAILABLE BY PHONE RIGHT NOW, CM LEFT MESSAGE. PT REPORTS WANTING TO REST TODAY. CM EXPLAINED TO PT THAT HE WILL HAVE TO PARTICIPATE IN REHAB SERVICES AFTER ADMISSION AND THAT HE WILL BE DOING THREE HOURS OF PROGRESSIVE THERAPY PER DAY IN [place] TO GET PT BACK TO THE [facility] ASSISTED LIVING SOON POSSIBLE. [facility] FURTHER EXPLAINED THAT THE OTHER OPTION FOR REHAB WOULD BE HALFWAY REHAB. PT IN AGREEMENT WITH REHAB AT [facility]. [facility] INPATIENT REHAB TO CONTACT MED 2 NURSE WITH ROOM NUMBER WHEN READY TO ACCEPT PT AND NURSE REPORT. Shayne Mejia CASE MANAGEMENT DCP- Discharge Planning Updated by [id number]: Shayne Mejia on 08/30/19 11:[address] Patient Name: SHERIDAN SOLIS Encounter No: [id number] : 1940 Primary Insurance: MEDICARE A & B Anticipated DC Date: Planned Disposition: Inpatient Rehab External Planned Provider: [facility] INPATIENT REH[facility] DCP follow-up note: CM SPOKE TO PT IN ROOM REGARDING HOSPICE CONSULT FROM FRIDAY. PT STATES HE HAS DECIDED THAT HE DOES NOT WANT HOSPICE AND WANTS AGRESSIVE TREATMENT TO RETURN TO HIS ASSISTED LIVING AT THE [facility]. CM DISCUSSED HALFWAY AND INPATIENT REHAB OPTIONS AND LOCATIONS. PT WOULD LIKE TO BE CONSIDERED FOR INPATIENT REHAB AT [facility]. CM REQUESTED ORDER FOR INPATIENT REHAB PRESCREENING. CM NOTIFIED SAM BEAR. CM WAITING [facility] INPATIENT REHAB PRESCREENING FROM [facility] INPAT[facility] RE[facility]. CHEO Bone DCP- Discharge Planning Updated by [id number]: Shayne Mejia on 08/27/19 3:[address] Patient Name: SHERIDAN SOLIS Admission Status: Elective Accout number: [id number] Admission Date: 08-21-2019 : 1940 Admission Diagnosis:SEPSIS, UNSPECIFIED ORGANISM Attending: ROSAS FINN Current LOS: 6 Anticipated DC Date: Planned Disposition: Hospice Medical Facility Primary Insurance: MEDICARE A & B PLANNED EXTERNAL PROVIDER: [facility] Discharge Planning Comments: CM MET WITH PT AND SISTERTROY IN ROOM TO DISCUSS DISCHARGE PLANNING AND NEEDS. PT APPEARS TO BE SLEEPING, BUT WILL RESPOND IF DIRECTLY ENGAGED IN CONVERSATION. PT'S SISTER REPORTS PT CAN HEAR AND UNDERSTAND EVERYTHING. PT HAS BEEN ASKING TO . PT LIVES AT THE [facility] ASSISTED LIVING. HE HAS ASSISTANCE WITH MEDICATION MANAGEMENT, MEAL PREPARATION AND TRANSPORTATION. PT HAS ROLLATOR WALKER AND DIAPERS. PT HAS NO MEDICAL EQUIPMENT PROVIDER PREFERENCE. PT'S SISTER WOULD LIKE TO CONSULT HOSPICE TO DISCUSS OPTIONS. PROVIDER LISTING OFFERED AND DISCUSSED. THEY WOULD LIKE TO CONSULT WITH [facility], CHOICE SIGNED. IMPORTANT MESSAGE FROM MEDICARE PROVIDED AND EXPLAINED. CM NOTIFIED SAM BEAR, OBTAINED HOSPICE CONSULT ORDER. CM CALLED [facility], , SPOKE TO ECHO WHO WILL HAVE ENDY EVALUATE FAMILY AND MEET WITH PT THIS EVENING. CM FAXED REFERRAL TO [facility] AT [phone]. Income Tax Auditor: Shayne Mejia DCP- Discharge Planning Updated by [id number]: Sandra Sheri on 08/26/19 4:[address] LATE ENTRY 08/24/19 CM attempted to see patient regarding discharge planning. Patient refused to speak to CM and told her "get out of my room". CM will continue to follow and assist as needed with discharge planning / needs DCPIA - Discharge Planning Initial Assessment Updated by [email or web address]: Shayne Mejia on 08/27/19 4:14 pm * Is the patient Alert and Oriented? No * How many steps to enter\\exit or inside your home? NONE * PCP DR. RODRIGUES * Pharmacy [facility] * Preadmission Environment Assisted Living * Facility Name [facility] IN [place] * ADLs Partial Dependent * Partial ADLs (Assistance needed) Medication Management * Equipment Rolling Walker * Other Equipment INCONTINENCE SUPPLIES NO MEDICAL EQUIPMENT PROVIDER PREFERENCE * List name and contact numbers for known caregivers / representatives who currently or will assist patient after discharge: SISTER NAVARRO, * Verbal permission to speak to the caregivers and representatives has been obtained from the patient. N/A * Community resources currently utilized None * Please name any agencies selected above. NONE * Additional services required to return to the preadmission environment? No * Can the patient safely return to the preadmission environment? Yes * Has this patient been hospitalized within the prior 30 days at any hospital? No Coverage Notice Reviewer: [id number] Taran Mejia Notice Issued Date-Time: 08/27/2019 15:20 Notice Type: Patient Choice Letter Notice Delivered To: Family Member Relationship to Patient: Track Announcer Name: TROY LEMONS Delivery Method: HAND - Hand Delivered Suha Days: Prior Verbal Notification: Recipient Understood Notice: Yes Recipient Signature: Yes Med Rec Note Co-signed by Attending: Coverage Notice Comment: [facility] Reviewer: [id number] Taran Mejia Notice Issued Date-Time: 08/27/2019 15:20 Notice Type: IM Discharge Notice Notice Delivered To: Family Member Relationship to Patient: Track Announcer Name: TROY LEMONS Delivery Method: - Suha Days: Prior Verbal Notification: Recipient Understood Notice: Recipient Signature: Med Rec Note Co-signed by Attending: Coverage Notice Comment: Reviewer: [id number] Taran Mejia Notice Issued Date-Time: 08/31/2019 8:25 Notice Type: Patient Choice Letter Notice Delivered To: Patient Relationship to Patient: Track Announcer Name: Delivery Method: HAND - Hand Delivered Suha Days: Prior Verbal Notification: Recipient Understood Notice: Yes Recipient Signature: Med Rec Note Co-signed by Attending: Coverage Notice Comment: pt reports he is unable to sign as he is too tired and had a bad night. Reviewer: [id number] Taran Mejia Notice Issued Date-Time: 08/31/2019 12:10 Notice Type: IM Discharge Notice Notice Delivered To: Patient Relationship to Patient: Track Announcer Name: Delivery Method: HAND - Hand Delivered Suha Days: Prior Verbal Notification: Recipient Understood Notice: Yes Recipient Signature: Med Rec Note Co-signed by Attending: Coverage Notice Comment: pt refused to sign. Last DP export: 08/30/19 11:41 am Patient Name: SHERIDAN SOLIS Page [phone] at 1236 All edits/amendments must be made on the electronic document DICTATION DATE: 08/31/19 1235 POWER BARKER OPERATOR: JIHAN 08/31/19 1235 RPT#: [id number] DC DATE: STATUS: ADM IN [facility] [address] [place] [address] END OF REPORT
--- NOTE | 2019-08-31 14:28 | NUR ---
Nutrition Follow-up: Pt sleeping soundly at time of visit this AM. Per record, 0% of breakfast eaten. Noted Parmjit started 08/28; reports it seems to be helping. Per wound care nurse, pt with unstageable pressure injury to R heel, deep tissue injury to L coccyx, stage 1 pressure injury to R coccyx. Noted plans to d/c to rehab. Diet: Regular, Mech Soft, Ensure TID PO intake: 0-25% per chart No new wt; 156# (08/24) Last BM: 08/30 Labs noted: Na 135, Ca 8.1, Alb 1.8 Meds noted: Megace, Remeron, Lasix, KDur -May consider alternate nutrition 2/2 poor PO intake, wounds. -Need new wt. -RD following.
[2019-08-31 15:12] VITALS: BP 88/40
--- NOTE | 2019-08-31 15:31 | NUR ---
OT NOTE: EXTENSIVE ENCOURAGMENT TO PARTICIPATE IN TMT IN AM. PT STATED THAT HE COULD NOT PARTICIPATE DUE TO LIMITED SLEEP PREVIOUS NIGHT. ENCOURAGED PT TO EAT OR DRINK ENSURE.. STATED THAT HE WOULD LATER BUT NOT NOW. PHYSICIAN ALSO ENCOURAGED PT TO EAT WHICH MAY BE ANOTHER REASON HE IS SO WEAK. PT LETHARGIC TODAY. WILL ATTEMPT TOMORROW. BENITA ARCE, OTR/L
--- NOTE | 2019-08-31 16:55 | MORECARE ---
CASE MANAGEMENT DISCHARGE SUMMARY PATIENT: SHERIDAN SOLIS UNIT: [id number] ADM DATE: 08/21/19 AGE: 79 : 40 SEX: M ROOM/BED: D.4995 AUTHOR: RYAN,DOC PHYSICIAN: REFERRING PHYSICIAN: ROSAS FINN MD DATE OF SERVICE: 08/31/19 Discharge Plan Patient Name: SHERIDAN SOLIS [facility] [place] : 1940 Planned Disposition: Inpatient Rehab Anticipated Discharge Date: 08/31/19 Discharge Date: Expected LOS: 10 Initial Reviewer: [id number] Initial Review Date: 08/27/2019 Generated: 08/31/19 5:55 pm Comments DCP- Discharge Planning Updated by [email or web address]: Shayne Mejia on 08/31/19 3:[address] Patient Name: SHERIDAN SOLIS Encounter No: [id number] : 1940 Primary Insurance: MEDICARE A & B Anticipated DC Date: 08-31-2019 Planned Disposition: Inpatient Rehab External Planned Provider: [facility] DCP follow-up note: CM MET WITH PT IN ROOM TO DISCUSS DISCHARGE TO REHAB AT [place]. PT IN AGREEMENT WITH PLAN, STILL DOES NOT WANT HOSPICE. PT REPORTED HE WAS UNABLE TO SIGN THE CHOICE FORM HE WAS TIRED AND NEEDED REST HE HAD A BAD NIGHT LAST NIGHT. CM MET WITH CARE TEAM AT INTERDISCIPLINARY TEAM MEETING, SAM BEAR INFORMED TEAM THAT PT IS READY TO DISCARGE TO REHAB, [facility] REPORTS THEY WILL ACCEPT PT TODAY. CM NOTIFIED PT IN ROOM, PROVIDED AND DISCUSSED IMPORTANT MESSAGE FROM MEDICARE. CM CALLED PT'S SISTER, TROY, , TO NOTIFY OF REHAB DISCHARGE TODAY, PT INFORMED CM IN ROOM THAT HIS SISTER HAS DOCTORS APPOINTMENT TODAY AND MAY NOT BE AVAILABLE BY PHONE RIGHT NOW, CM LEFT MESSAGE. PT REPORTS WANTING TO REST TODAY. CM EXPLAINED TO PT THAT HE WILL HAVE TO PARTICIPATE IN REHAB SERVICES AFTER ADMISSION AND THAT HE WILL BE DOING THREE HOURS OF PROGRESSIVE THERAPY PER DAY IN [place]FFORT TO GET PT BACK TO THE [facility] ASSISTED LIVING SOON POSSIBLE. SANA FURTHER EXPLAINED THAT THE OTHER OPTION FOR REHAB WOULD BE ASSISTED REHAB. PT IN AGREEMENT WITH REHAB AT [place]. [facility] TO CONTACT MED 2 NURSE WITH ROOM NUMBER WHEN READY TO ACCEPT PT AND NURSE REPORT. Shayne Mejia, CASE MANAGEMENT Appended by Shayne Mejia on 08/31/2019 16:49 STEAM CLOTHES PRESS OPERATOR: CM RECEIVED CALL FROM [facility]PATIENT [facility] AT [place], PT HAS BEEN ACCEPTED AND IF DISCHARGED TONIGHT TO INPATIENT REHAB, HE WILL ADMIT TO ROOM 1114-A AFTER NURSE REPORT IS CALLED. CM WAITING DISCHARGE ORDERS TO INPATIENT REHAB. CHEO IZAGUIRRE DCP- Discharge Planning Updated by [id number]: Shayne Mejia on 08/30/19 11:[address] Patient Name: SHERIDAN SOLIS Encounter No: [id number] : 1940 Primary Insurance: MEDICARE A & B Anticipated DC Date: Planned Disposition: Inpatient Rehab External Planned Provider: [facility] DCP follow-up note: CM SPOKE TO PT IN ROOM REGARDING HOSPICE CONSULT FROM FRIDAY. PT STATES HE HAS DECIDED THAT HE DOES NOT WANT HOSPICE AND WANTS AGRESSIVE TREATMENT TO RETURN TO HIS ASSISTED LIVING AT THE [facility]. CM DISCUSSED ASSISTED AND INPATIENT REHAB OPTIONS AND LOCATIONS. PT WOULD LIKE TO BE CONSIDERED FOR INPATIENT REHAB AT [place]. CM REQUESTED ORDER FOR INPATIENT REHAB PRESCREENING. CM NOTIFIED SAM BEAR. CM WAITING [facility] PRESCREENING FROM [facility]. CHEO Izaguirre DCP- Discharge Planning Updated by [id number]: Shayne Mejia on 08/27/19 3:[address] Patient Name: SHERIDAN SOLIS Admission Status: Elective Accout number: [id number] Admission Date: 08-21-2019 : 1940 Admission Diagnosis:SEPSIS, UNSPECIFIED ORGANISM Attending: ROSAS FINN Current LOS: 6 Anticipated DC Date: Planned Disposition: Hospice Medical Facility Primary Insurance: MEDICARE A & B PLANNED EXTERNAL PROVIDER: [facility] Discharge Planning Comments: CM MET WITH PT AND SISTERTROY IN ROOM TO DISCUSS DISCHARGE PLANNING AND NEEDS. PT APPEARS TO BE SLEEPING, BUT WILL RESPOND IF DIRECTLY ENGAGED IN CONVERSATION. PT'S SISTER REPORTS PT CAN HEAR AND UNDERSTAND EVERYTHING. PT HAS BEEN ASKING TO . PT LIVES AT THE [facility] ASSISTED LIVING. HE HAS ASSISTANCE WITH MEDICATION MANAGEMENT, MEAL PREPARATION AND TRANSPORTATION. PT HAS ROLLATOR WALKER AND DIAPERS. PT HAS NO MEDICAL EQUIPMENT PROVIDER PREFERENCE. PT'S SISTER WOULD LIKE TO CONSULT HOSPICE TO DISCUSS OPTIONS. PROVIDER LISTING OFFERED AND DISCUSSED. THEY WOULD LIKE TO CONSULT WITH [facility], CHOICE SIGNED. IMPORTANT MESSAGE FROM MEDICARE PROVIDED AND EXPLAINED. CM NOTIFIED COLOR DIPPER CHEMA, OBTAINED HOSPICE CONSULT ORDER. CM CALLED [facility], , SPOKE TO ECHO WHO WILL HAVE ENDY EVALUATE FAMILY AND MEET WITH PT THIS EVENING. CM FAXED REFERRAL TO [facility] AT [phone]. Nail Professional: Shayne Mejia DCP- Discharge Planning Updated by [id number]: Sandra Wade on 08/26/19 4:[address] LATE ENTRY 08/24/19 CM attempted to see patient regarding discharge planning. Patient refused to speak to CM and told her "get out of my room". CM will continue to follow and assist as needed with discharge planning / needs DCPIA - Discharge Planning Initial Assessment Updated by [id number]: Shayne Mejia on 08/27/19 4:14 pm * Is the patient Alert and Oriented? No * How many steps to enter\\exit or inside your home? NONE * PCP DR. RODRIGUES * Pharmacy [facility] * Preadmission Environment Assisted Living * Facility Name [facility] IN [place] * ADLs Partial Dependent * Partial ADLs (Assistance needed) Medication Management * Equipment Rolling Walker * Other Equipment IN[employer]ENCE SUPPLIES NO MEDICAL EQUIPMENT PROVIDER PREFERENCE * List name and contact numbers for known caregivers / representatives who currently or will assist patient after discharge: TROY LEMONS, , * Verbal permission to speak to the caregivers and representatives has been obtained from the patient. N/A * Community resources currently utilized None * Please name any agencies selected above. NONE * Additional services required to return to the preadmission environment? No * Can the patient safely return to the preadmission environment? Yes * Has this patient been hospitalized within the prior 30 days at any hospital? No Coverage Notice Reviewer: [id number] Taran Mejia Notice Issued Date-Time: 08/27/2019 15:20 Notice Type: Patient Choice Letter Notice Delivered To: Family Member Relationship to Patient: Sister Expediter Name: TROY LEMONS Delivery Method: HAND - Hand Delivered Suha Days: Prior Verbal Notification: Recipient Understood Notice: Yes Recipient Signature: Yes Med Rec Note Co-signed by Attending: Coverage Notice Comment: [facility] Reviewer: [id number] Taran Mejia Notice Issued Date-Time: 08/27/2019 15:20 Notice Type: IM Discharge Notice Notice Delivered To: Family Member Relationship to Patient: Sister Expediter Name: TROY LEMONS Delivery Method: - Suha Days: Prior Verbal Notification: Recipient Understood Notice: Recipient Signature: Med Rec Note Co-signed by Attending: Coverage Notice Comment: Reviewer: LILY Mejia Notice Issued Date-Time: 08/31/2019 8:25 Notice Type: Patient Choice Letter Notice Delivered To: Patient Relationship to Patient: Expediter Name: Delivery Method: HAND - Hand Delivered Suha Days: Prior Verbal Notification: Recipient Understood Notice: Yes Recipient Signature: Med Rec Note Co-signed by Attending: Coverage Notice Comment: pt reports he is unable to sign as he is too tired and had a bad night. Reviewer: [id number] Taran Mejia Notice Issued Date-Time: 08/31/2019 12:10 Notice Type: IM Discharge Notice Notice Delivered To: Patient Relationship to Patient: Expediter Name: Delivery Method: HAND - Hand Delivered Suha Days: Prior Verbal Notification: Recipient Understood Notice: Yes Recipient Signature: Med Rec Note Co-signed by Attending: Coverage Notice Comment: pt refused to sign. Last DP export: 08/31/19 11:36 am Patient Name: SHERIDAN SOLIS Page [phone] at 1655 All edits/amendments must be made on the electronic document DICTATION DATE: 08/31/191654 DIRECTOR AUTOMOTIVE: JIHAN 08/31/191654 RPT#: [id number] DC DATE: STATUS: ADM IN [facility] [address] [place] [address] END OF REPORT
[2019-08-31] MEDS ORDERED: IPRAT-ALBUT 0.5-3 ML INH (17:48)
[2019-08-31] MEDS ORDERED: PLAVIX75 MG PO (17:48)
[2019-08-31] MEDS ORDERED: ACETAMINOPHEN325 MG PO (17:48)
[2019-08-31] MEDS ORDERED: MUCINEX DM ER1 EAC1 PO (17:49)
[2019-08-31] MEDS ORDERED: FLUTICASONE PRO16 GM NASAL (17:49)
[2019-08-31] MEDS ORDERED: TESSALON PERLE100 MG PO (17:49)
[2019-08-31] MEDS ORDERED: MEGACE400 MG/10 PO (17:49)
[2019-08-31] MEDS ORDERED: FUROSEMIDE20 MG PO (17:50)
[2019-08-31] MEDS ORDERED: PROTONIX40 MG PO (17:50)
[2019-08-31 20:00] VITALS: BP 97/57
--- NOTE | 2019-08-31 21:30 | NUR ---
REPORT CALLED TO JENNA MOHAN IN REHAB.
--- NOTE | 2019-08-31 22:01 | NUR ---
PT REFUSING TO GO TO REHAB AT THIS TIME. PT STATES, "I'M NOT GOING TO REHAB HERE, I'M GONNA NATALIA THE SHIT OUT OF THIS HOSPITAL! TURN THE LIGHT OUT ON YOUR WAY OUUTA HERE AND LEAVE ME THE HELL ALONE." SAM REEVES PAGED. DECISION MADE TO HOLD TRANSFER. PT ALERT AND ORIENTED X4. RR EVEN AND UNLABORED. BED LOW CALL LIGHT WITHIN REACH. WILL CONTINUE TO MONITOR AT THIS TIME.
--- NOTE | 2019-09-01 00:12 | NUR ---
PT RESTING COMFORTABLY AT THIS TIME. RR EVEN AND UNLABORED. PT TURNED. NO S/S OF DISTRESS. BED LOW CALL LIGHT WITHIN REACH. WILL CONTINUE TO MONITOR.
[2019-09-01 00:20] VITALS: BP 82/46
--- NOTE | 2019-09-01 02:39 | NUR ---
I have reviewed this patient and I concur with the Shift Assessment completed by the Licensed Practical Nurse today this shift.
--- NOTE | 2019-09-01 02:46 | NUR ---
PT RESTING IN BED WITH EYES CLOSED. VSS. RR EVEN AND UNLABORED. BED LOW CALL LIGHT WITHIN REACH. WILL CONTINUE TO MONITOR.
[2019-09-01 04:00] VITALS: BP 91/53
[2019-09-01 06:00] LABS: BASOPHILS 0.4 % (0-2); EOSINOPHILS 6.4 % (0-7); IMMATURE GRANULOCYTES 0.7 % (0-5); LYMPHOCYTES 20.3 % (15-50); MCH 28.6 pg (26.0-34.0); MCHC 32.4 g/dL (31.0-37.0); MCV 88.1 fL (80.0-100.0); MEAN PLATELET VOLUME 8.4 fL (7.4-10.4); MONOCYTES 9.1 % (2-11); NEUTROPHILS 63.1 % (40-80); PLATELET COUNT 533 10x3/uL (130-400); RDW 15.4 % (11.5-14.5); WBC 12.5 10x3/uL (4.8-10.8)
[2019-09-01 06:12] LABS: ALBUMIN 1.9 g/dL (3.4-5.0); ALKALINE PHOSPHATASE 102 U/L (46-116); ALT (SGPT) 16 U/L (10-68); CALC OSMOLALITY 276 mosm/kg (275-300); CHLORIDE - SERUM 102 mmol/L (98-107); GLUCOSE 110 mg/dL (74-106); POTASSIUM - SERUM 4.2 mmol/L (3.5-5.1); PROTEIN - SERUM 6.3 g/dL (6.4-8.2); SODIUM 137 mmol/L (136-145); UREA NITROGEN 17 mg/dL (7-18); eGFR NON AFRICAN AMERICAN 86 mL/min (90-120)
[2019-09-01 06:16] LABS: CREATININE - SERUM 0.9 mg/dL (0.6-1.3)
[2019-09-01 09:09] VITALS: BP 100/52
--- NOTE | 2019-09-01 09:36 | MORECARE ---
CASE MANAGEMENT DISCHARGE SUMMARY PATIENT: SHERIDAN SOLIS UNIT: [id number] ADM DATE: 08/21/19 AGE: 79 : 40 SEX: M ROOM/BED: D.3535 AUTHOR: RYAN,DOC PHYSICIAN: REFERRING PHYSICIAN: ROSAS FINN MD DATE OF SERVICE: 09/01/19 Discharge Plan Patient Name: SHERIDAN SOLIS [facility] [facility] 1940 Planned Disposition: Inpatient Rehab Anticipated Discharge Date: 08/31/19 Discharge Date: Expected LOS: 10 Initial Reviewer: [id number] Initial Review Date: 08/27/2019 Generated: 09/01/19 10:35 am Comments DCP- Discharge Planning Updated by [id number]: Shayne Mejia on 09/01/19 8:[address] Patient Name: SHERIDAN SOLIS Encounter No: [id number] : 1940 Primary Insurance: MEDICARE A & B Anticipated DC Date: 08-31-2019 Planned Disposition: Inpatient Rehab External Planned Provider: [facility] DCP follow-up note: CM REVIEWED CHART, PT REFUSED TO GO TO REHAB LAST NIGHT. CM MET WITH PT IN ROOM TO DISCUSS DISCHARGE PLANNING AND NEEDS. PT STATES THE HOSPITAL HAS NOT DONE A "DAMN THING FOR HIM". CM EXPLAINED TO PT THAT HE IS STABLE FOR DISCHARGE AND THAT PT IS THE ONE NOT DOING ANYTHING FOR HIMSELF. CM FURTHER EXPLAINED THAT PT NEEDS TO DECIDE WHAT HE WANTS TO DO. PT STATES HE WANTS TO GO BACK TO THE [facility]. CM EXPLAINED THAT HE CAN GO TODAY. PT STATES HE IS TOO WEAK TO GO HOME AND NEEDS REHAB. CM EXPLAINED THAT PT HAS BEEN ACCEPTED AT INPATIENT REHAB AND IF PT DOES NOT WANT TO DO THREE HOURS OF PROGESSIVE THERAPY PER DAY, PT CAN GO TO NURSING HOME FACILITY. PT STATES HE WILL GO TO REHAB AT [place] AND DOES NOT WANT TO GO TO NURSING HOME REHAB. CM CALLED PT'S SISTER, TROY, , TROY IN AGREEMENT WITH REHAB AT [place] AND IS UPSET THAT PT DID NOT GO LAST NIGHT AND WILL TALK TO PT THIS MORNING. CM TO NOTIFY [facility] INPATIENT [facility] TO ENSURE THEY WILL STILL ACCEPT TODAY. CHEO Bone DCP- Discharge Planning Updated by [id number]: Shayne Mejia on 08/31/19 3:[address] Patient Name: SHERIDAN SOLIS Encounter No: [id number] : 1940 Primary Insurance: MEDICARE A & B Anticipated DC Date: 08-31-2019 Planned Disposition: Inpatient Rehab External Planned Provider: [facility] DCP follow-up note: CM MET WITH PT IN ROOM TO DISCUSS DISCHARGE TO REHAB AT [place]. PT IN AGREEMENT WITH PLAN, STILL DOES NOT WANT HOSPICE. PT REPORTED HE WAS UNABLE TO SIGN THE CHOICE FORM HE WAS TIRED AND NEEDED REST HE HAD A BAD NIGHT LAST NIGHT. CM MET WITH CARE TEAM AT INTERDISCIPLINARY TEAM MEETING, SAM BEAR INFORMED TEAM THAT PT IS READY TO DISCARGE TO REHAB, [facility] REPORTS THEY WILL ACCEPT PT TODAY. CM NOTIFIED PT IN ROOM, PROVIDED AND DISCUSSED IMPORTANT MESSAGE FROM MEDICARE. CM CALLED PT'S SISTER, TROY, , TO NOTIFY OF REHAB DISCHARGE TODAY, PT INFORMED CM IN ROOM THAT HIS SISTER HAS DOCTORS APPOINTMENT TODAY AND MAY NOT BE AVAILABLE BY PHONE RIGHT NOW, CM LEFT MESSAGE. PT REPORTS WANTING TO REST TODAY. CM EXPLAINED TO PT THAT HE WILL HAVE TO PARTICIPATE IN REHAB SERVICES AFTER ADMISSION AND THAT HE WILL BE DOING THREE HOURS OF PROGRESSIVE THERAPY PER DAY IN EFFORT TO GET PT BACK TO THE [facility] ASSISTED LIVING SOON POSSIBLE. CM FURTHER EXPLAINED THAT THE OTHER OPTION FOR REHAB WOULD BE NURSING HOME REHAB. PT IN AGREEMENT WITH REHAB AT [place]. [facility] INPAT[facility] TO CONTACT MED 2 NURSE WITH ROOM NUMBER WHEN READY TO ACCEPT PT AND NURSE REPORT. Shayne Mejia, CASE MANAGEMENT Appended by Shayne Mejia on 08/31/2019 16:49 PORCELAIN ENAMEL SPRAYER: CM RECEIVED CALL FROM [facility] INPATIENT [facility] AT [place], PT HAS BEEN ACCEPTED AND IF DISCHARGED TONIGHT TO INPATIENT REHAB, HE WILL ADMIT TO ROOM 1114-A AFTER NURSE REPORT IS CALLED. CM WAITING DISCHARGE ORDERS TO INPATIENT REHAB. CHEO BONE DCP- Discharge Planning Updated by [email or web address]: Shayne Mejia on 08/30/19 11:[address] Patient Name: SHERIDAN SOLIS Encounter No: [id number] : 1940 Primary Insurance: MEDICARE A & B Anticipated DC Date: Planned Disposition: Inpatient Rehab External Planned Provider: [facility] DCP follow-up note: CM SPOKE TO PT IN ROOM REGARDING HOSPICE CONSULT FROM FRIDAY. PT STATES HE HAS DECIDED THAT HE DOES NOT WANT HOSPICE AND WANTS AGRESSIVE TREATMENT TO RETURN TO HIS ASSISTED LIVING AT THE [facility]. CM DISCUSSED NURSING HOME AND INPATIENT REHAB OPTIONS AND LOCATIONS. PT WOULD LIKE TO BE CONSIDERED FOR INPATIENT REHAB AT [place]. CM REQUESTED ORDER FOR INPATIENT REHAB PRESCREENING. CM NOTIFIED SAM BEAR. CM WAITING [facility] INPATIENT REHAB PRESCREENING FROM [facility]. Shayne Mejia, CASE MANAGEMENT DCP- Discharge Planning Updated by [id number]: Shayne Mejia on 08/27/19 3:[address] Patient Name: SHERIDAN SOLIS Admission Status: Elective Accout number: [id number] Admission Date: 08-21-2019 : 1940 Admission Diagnosis:SEPSIS, UNSPECIFIED ORGANISM Attending: ROSAS FINN Current LOS: 6 Anticipated DC Date: Planned Disposition: Hospice Medical Facility Primary Insurance: MEDICARE A & B PLANNED EXTERNAL PROVIDER: [facility] Discharge Planning Comments: CM MET WITH PT AND SISTERTROY IN ROOM TO DISCUSS DISCHARGE PLANNING AND NEEDS. PT APPEARS TO BE SLEEPING, BUT WILL RESPOND IF DIRECTLY ENGAGED IN CONVERSATION. PT'S SISTER REPORTS PT CAN HEAR AND UNDERSTAND EVERYTHING. PT HAS BEEN ASKING TO . PT LIVES AT THE [facility] ASSISTED LIVING. HE HAS ASSISTANCE WITH MEDICATION MANAGEMENT, MEAL PREPARATION AND TRANSPORTATION. PT HAS ROLLATOR WALKER AND DIAPERS. PT HAS NO MEDICAL EQUIPMENT PROVIDER PREFERENCE. PT'S SISTER WOULD LIKE TO CONSULT HOSPICE TO DISCUSS OPTIONS. PROVIDER LISTING OFFERED AND DISCUSSED. THEY WOULD LIKE TO CONSULT WITH [facility], CHOICE SIGNED. IMPORTANT MESSAGE FROM MEDICARE PROVIDED AND EXPLAINED. CM NOTIFIED SAM BEAR, OBTAINED HOSPICE CONSULT ORDER. CM CALLED [facility], , SPOKE TO ECHO WHO WILL HAVE ENDY EVALUATE FAMILY AND MEET WITH PT THIS EVENING. CM FAXED REFERRAL TO [facility] AT [phone]. Onboarding Specialist: Shayne Mejia DCP- Discharge Planning Updated by [id number]: Sandra Wade on 08/26/19 4:[address] LATE ENTRY 08/24/19 CM attempted to see patient regarding discharge planning. Patient refused to speak to CM and told her "get out of my room". CM will continue to follow and assist as needed with discharge planning / needs DCPIA - Discharge Planning Initial Assessment Updated by LILY: Shayne Mejia on 08/27/19 4:14 pm * Is the patient Alert and Oriented? No * How many steps to enter\\exit or inside your home? NONE * PCP DR. RODRIGUES * Pharmacy [facility] * Preadmission Environment Assisted Living * Facility Name [facility] IN [place] * ADLs Partial Dependent * Partial ADLs (Assistance needed) Medication Management * Equipment Rolling Walker * Other Equipment [employer]ENCE SUPPLIES NO MEDICAL EQUIPMENT PROVIDER PREFERENCE * List name and contact numbers for known caregivers / representatives who currently or will assist patient after discharge: SISTER NAVARRO, * Verbal permission to speak to the caregivers and representatives has been obtained from the patient. N/A * Community resources currently utilized None * Please name any agencies selected above. NONE * Additional services required to return to the preadmission environment? No * Can the patient safely return to the preadmission environment? Yes * Has this patient been hospitalized within the prior 30 days at any hospital? No Coverage Notice Reviewer: [id number] Taran Mejia Notice Issued Date-Time: 08/27/2019 15:20 Notice Type: Patient Choice Letter Notice Delivered To: Family Member Relationship to Patient: Service Counter Cashier Name: TROY LEMONS Delivery Method: HAND - Hand Delivered Suha Days: Prior Verbal Notification: Recipient Understood Notice: Yes Recipient Signature: Yes Med Rec Note Co-signed by Attending: Coverage Notice Comment: [facility] Reviewer: [id number] Taran Mejia Notice Issued Date-Time: 08/27/2019 15:20 Notice Type: IM Discharge Notice Notice Delivered To: Family Member Relationship to Patient: Service Counter Cashier Name: TROY LEMONS Delivery Method: - Suha Days: Prior Verbal Notification: Recipient Understood Notice: Recipient Signature: Med Rec Note Co-signed by Attending: Coverage Notice Comment: Reviewer: [id number] Mejia Notice Issued Date-Time: 08/31/2019 8:25 Notice Type: Patient Choice Letter Notice Delivered To: Patient Relationship to Patient: Service Counter Cashier Name: Delivery Method: HAND - Hand Delivered Suha Days: Prior Verbal Notification: Recipient Understood Notice: Yes Recipient Signature: Med Rec Note Co-signed by Attending: Coverage Notice Comment: pt reports he is unable to sign as he is too tired and had a bad night. Reviewer: [id number] - Shayne Mejia Notice Issued Date-Time: 08/31/2019 12:10 Notice Type: IM Discharge Notice Notice Delivered To: Patient Relationship to Patient: Service Counter Cashier Name: Delivery Method: HAND - Hand Delivered Suha Days: Prior Verbal Notification: Recipient Understood Notice: Yes Recipient Signature: Med Rec Note Co-signed by Attending: Coverage Notice Comment: pt refused to sign. Last DP export: 08/31/19 3:55 pm Patient Name: SHERIDAN SOLIS Page [phone] at 0936 All edits/amendments must be made on the electronic document DICTATION DATE: 09/01/19934 BURRER MARKER AXLE: JIHAN 09/01/19934 RPT#: [id number] DC DATE: STATUS: ADM IN [facility] [address] [place] [address] END OF REPORT
--- NOTE | 2019-09-01 10:03 | MORECARE ---
CASE MANAGEMENT DISCHARGE SUMMARY PATIENT: SHERIDAN SOLIS UNIT: [id number] ADM DATE: 08/21/19 AGE: 79 : 40 SEX: M ROOM/BED: D.6775 AUTHOR: RYAN,DOC PHYSICIAN: REFERRING PHYSICIAN: ROSAS FINN MD DATE OF SERVICE: 09/01/19 Discharge Plan Patient Name: SHERIDAN SOLIS [facility] [facility] 1940 Planned Disposition: Inpatient Rehab Anticipated Discharge Date: 09/01/19 Discharge Date: Expected LOS: 11 Initial Reviewer: [id number] Initial Review Date: 08/27/2019 Generated: 09/01/19 11:02 am Comments DCP- Discharge Planning Updated by [id number]: Abundio Webber on 09/01/19 8:[address] Patient Name: SHERIDAN SOLIS Encounter No: [id number] : 1940 Primary Insurance: MEDICARE A & B Anticipated DC Date: 08-31-2019 Planned Disposition: Inpatient Rehab External Planned Provider: [facility] INPATIENT [facility] DCP follow-up note: CM REVIEWED CHART, PT REFUSED TO GO TO REHAB LAST NIGHT. CM MET WITH PT IN ROOM TO DISCUSS DISCHARGE PLANNING AND NEEDS. PT STATES THE HOSPITAL HAS NOT DONE A "DAMN THING FOR HIM". CM EXPLAINED TO PT THAT HE IS STABLE FOR DISCHARGE AND THAT PT IS THE ONE NOT DOING ANYTHING FOR HIMSELF. CM FURTHER EXPLAINED THAT PT NEEDS TO DECIDE WHAT HE WANTS TO DO. PT STATES HE WANTS TO GO BACK TO THE [facility]. CM EXPLAINED THAT HE CAN GO TODAY. PT STATES HE IS TOO WEAK TO GO HOME AND NEEDS REHAB. CM EXPLAINED THAT PT HAS BEEN ACCEPTED AT INPATIENT REHAB AND IF PT DOES NOT WANT TO DO THREE HOURS OF PROGESSIVE THERAPY PER DAY, PT CAN GO TO [facility]AIL FACILITY. PT STATES HE WILL GO TO REHAB AT [place] AND DOES NOT WANT TO GO TO [facility] RE[facility]. CM CALLED PT'S SISTER, TROY, , TROY IN AGREEMENT WITH REHAB AT [place] AND IS UPSET THAT PT DID NOT GO LAST NIGHT AND WILL TALK TO PT THIS MORNING. CM TO NOTIFY [facility] INPAT[facility] TO ENSURE THEY WILL STILL ACCEPT TODAY. Abundio Roberto, CASE MANAGEMENT Appended by Abundio Webber on 09/01/2019 9:59 INTEGRATED MARKETING MANAGER: CM RECEIVED CALL FROM ROSEMARY OF INPATIENT REHAB AT [place], PT HAS BEEN ACCEPTED AND CAN STILL ADMIT TO ROOM 1114-A TODAY AFTER NURSE REPORT IS CALLED. CM NOTIFIED PT AND HIS SISTER, TROY, IN ROOM. ALL IN AGREEMENT WITH DISCHARGE NOW TO INPATIENT REHAB AT [place]. CM NOTIFIED ROSEMARY OF INPATIENT REHAB AND DIABETES NURSE NURSE. REPORT TO BE CALLED TO INPATIENT REHAB AT [place], PT WILL ADMIT TO ROOM 1114-A. ABUNDIO WEBBER, CASE MANAGEMENT DCP- Discharge Planning Updated by [id number]: Abundio Webber on 08/31/19 3:[address] Patient Name: SHERIDAN SOLIS Encounter No: [id number] : 1940 Primary Insurance: MEDICARE A & B Anticipated DC Date: 08-31-2019 Planned Disposition: Inpatient Rehab External Planned Provider: [facility] DCP follow-up note: CM MET WITH PT IN ROOM TO DISCUSS DISCHARGE TO REHAB AT [place]. PT IN AGREEMENT WITH PLAN, STILL DOES NOT WANT HOSPICE. PT REPORTED HE WAS UNABLE TO SIGN THE CHOICE FORM HE WAS TIRED AND NEEDED REST HE HAD A BAD NIGHT LAST NIGHT. CM MET WITH CARE TEAM AT INTERDISCIPLINARY TEAM MEETING, SAM BEAR INFORMED TEAM THAT PT IS READY TO DISCARGE TO REHAB, ROSEMARY OF REHAB REPORTS THEY WILL ACCEPT PT TODAY. CM NOTIFIED PT IN ROOM, PROVIDED AND DISCUSSED IMPORTANT MESSAGE FROM MEDICARE. CM CALLED PT'S SISTER, TROY, , TO NOTIFY OF REHAB DISCHARGE TODAY, PT INFORMED CM IN ROOM THAT HIS SISTER HAS DOCTORS APPOINTMENT TODAY AND MAY NOT BE AVAILABLE BY PHONE RIGHT NOW, CM LEFT MESSAGE. PT REPORTS WANTING TO REST TODAY. CM EXPLAINED TO PT THAT HE WILL HAVE TO PARTICIPATE IN REHAB SERVICES AFTER ADMISSION AND THAT HE WILL BE DOING THREE HOURS OF PROGRESSIVE THERAPY PER DAY IN EFFORT TO GET PT BACK TO THE [facility] ASSISTED LIVING SOON POSSIBLE. CM FURTHER EXPLAINED THAT THE OTHER OPTION FOR REHAB WOULD BE [facility]. PT IN AGREEMENT WITH REHAB AT [place]. [facility] IN[facility] TO CONTACT MED 2 NURSE WITH ROOM NUMBER WHEN READY TO ACCEPT PT AND NURSE REPORT. Abundio Webber, CASE MANAGEMENT Appended by Abundio Webber on 08/31/2019 16:49 INTEGRATED MARKETING MANAGER: CM RECEIVED CALL FROM ROSEMARY OF INPATIENT REHAB AT [place], PT HAS BEEN ACCEPTED AND IF DISCHARGED TONIGHT TO INPATIENT REHAB, HE WILL ADMIT TO ROOM 1114-A AFTER NURSE REPORT IS CALLED. CM WAITING DISCHARGE ORDERS TO INPATIENT REHAB. [facility] MANAGEMENT DCP- Discharge Planning Updated by [id number]: Abundio Webber on 08/30/19 11:[address] Patient Name: SHERIDAN SOLIS Encounter No: [id number] : 1940 Primary Insurance: MEDICARE A & B Anticipated DC Date: Planned Disposition: Inpatient Rehab External Planned Provider: [facility] DCP follow-up note: CM SPOKE TO PT IN ROOM REGARDING HOSPICE CONSULT FROM FRIDAY. PT STATES HE HAS DECIDED THAT HE DOES NOT WANT HOSPICE AND WANTS AGRESSIVE TREATMENT TO RETURN TO HIS ASSISTED LIVING AT THE [facility]. CM DISCUSSED JAIL AND INPATIENT REHAB OPTIONS AND LOCATIONS. PT WOULD LIKE TO BE CONSIDERED FOR INPATIENT REHAB AT [place]. CM REQUESTED ORDER FOR INPATIENT REHAB PRESCREENING. CM NOTIFIED SAM BEAR. CM WAITING [facility] INPATIENT REHAB PRESCREENING FROM [facility] INPAT[facility]. [facility] MANAGEMENT DCP- Discharge Planning Updated by [id number]: Abundio Webber on 08/27/19 3:[address] Patient Name: SHERIDAN SOLIS Admission Status: Elective Accout number: [id number] Admission Date: 08-21-2019 : 1940 Admission Diagnosis:SEPSIS, UNSPECIFIED ORGANISM Attending: ROSAS FINN Current LOS: 6 Anticipated DC Date: Planned Disposition: Hospice Medical Facility Primary Insurance: MEDICARE A & B PLANNED EXTERNAL PROVIDER: [facility] Discharge Planning Comments: CM MET WITH PT AND SISTERTROY IN ROOM TO DISCUSS DISCHARGE PLANNING AND NEEDS. PT APPEARS TO BE SLEEPING, BUT WILL RESPOND IF DIRECTLY ENGAGED IN CONVERSATION. PT'S SISTER REPORTS PT CAN HEAR AND UNDERSTAND EVERYTHING. PT HAS BEEN ASKING TO . PT LIVES AT THE [facility] ASSISTED LIVING. HE HAS ASSISTANCE WITH MEDICATION MANAGEMENT, MEAL PREPARATION AND TRANSPORTATION. PT HAS ROLLATOR WALKER AND DIAPERS. PT HAS NO MEDICAL EQUIPMENT PROVIDER PREFERENCE. PT'S SISTER WOULD LIKE TO CONSULT HOSPICE TO DISCUSS OPTIONS. PROVIDER LISTING OFFERED AND DISCUSSED. THEY WOULD LIKE TO CONSULT WITH [facility], CHOICE SIGNED. IMPORTANT MESSAGE FROM MEDICARE PROVIDED AND EXPLAINED. CM NOTIFIED ENVIRONMENTAL SYSTEMS COORDINATOR CHE[place], OBTAINED HOSPICE CONSULT ORDER. CM CALLED [facility], , SPOKE TO ECHO WHO WILL HAVE ENDY EVALUATE FAMILY AND MEET WITH PT THIS EVENING. CM FAXED REFERRAL TO [facility] AT [phone]. [place] Counselor: Abundio Webber DCP- Discharge Planning Updated by [id number]: Sandra Sheri on 08/26/19 4:[address] LATE ENTRY 08/24/19 CM attempted to see patient regarding discharge planning. Patient refused to speak to CM and told her "get out of my room". CM will continue to follow and assist as needed with discharge planning / needs DCPIA - Discharge Planning Initial Assessment Updated by [id number]: Abundio Webber on 08/27/19 4:14 pm * Is the patient Alert and Oriented? No * How many steps to enter\\exit or inside your home? NONE * PCP DR. RODRIGUES * Pharmacy [facility] * Preadmission Environment Assisted Living * Facility Name [facility] IN [place] * ADLs Partial Dependent * Partial ADLs (Assistance needed) Medication Management * Equipment Rolling Walker * Other Equipment INCONTINENCE [employer]PPLIES NO MEDICAL EQUIPMENT PROVIDER PREFERENCE * List name and contact numbers for known caregivers / representatives who currently or will assist patient after discharge: TROY LEMONS, , * Verbal permission to speak to the caregivers and representatives has been obtained from the patient. N/A * Community resources currently utilized None * Please name any agencies selected above. NONE * Additional services required to return to the preadmission environment? No * Can the patient safely return to the preadmission environment? Yes * Has this patient been hospitalized within the prior 30 days at any hospital? No Coverage Notice Reviewer: [id number] Taran Webber Notice Issued Date-Time: 08/27/2019 15:20 Notice Type: Patient Choice Letter Notice Delivered To: Family Member Relationship to Patient: Sister Emergency Room Doctor Name: TROY LEMONS Delivery Method: HAND - Hand Delivered Suha Days: Prior Verbal Notification: Recipient Understood Notice: Yes Recipient Signature: Yes Med Rec Note Co-signed by Attending: Coverage Notice Comment: [facility] Reviewer: [id number] Taran Webber Notice Issued Date-Time: 08/27/2019 15:20 Notice Type: IM Discharge Notice Notice Delivered To: Family Member Relationship to Patient: Sister Emergency Room Doctor Name: TROY LEMONS Delivery Method: - Suha Days: Prior Verbal Notification: Recipient Understood Notice: Recipient Signature: Med Rec Note Co-signed by Attending: Coverage Notice Comment: Reviewer: [id number] Taran Webber Notice Issued Date-Time: 08/31/2019 8:25 Notice Type: Patient Choice Letter Notice Delivered To: Patient Relationship to Patient: Emergency Room Doctor Name: Delivery Method: HAND - Hand Delivered Suha Days: Prior Verbal Notification: Recipient Understood Notice: Yes Recipient Signature: Med Rec Note Co-signed by Attending: Coverage Notice Comment: pt reports he is unable to sign as he is too tired and had a bad night. Reviewer: [id number] Taran Webber Notice Issued Date-Time: 08/31/2019 12:10 Notice Type: IM Discharge Notice Notice Delivered To: Patient Relationship to Patient: Emergency Room Doctor Name: Delivery Method: HAND - Hand Delivered Suha Days: Prior Verbal Notification: Recipient Understood Notice: Yes Recipient Signature: Med Rec Note Co-signed by Attending: Coverage Notice Comment: pt refused to sign. Last DP export: 09/01/19 8:36 am Patient Name: SHERIDAN SOLIS Page [id number] at 1003 All edits/amendments must be made on the electronic document DICTATION DATE: 09/01/19 1002 OXIDATION OPERATOR: JIHAN 09/01/19 1002 RPT#: [id number] DC DATE: STATUS: ADM IN [facility] [address] [place] [address] END OF REPORT
--- NOTE | 2019-09-01 10:39 | NUR ---
RIGHT UPPER ARM PICC LINE DRESSING CHANGED USING STERILE TECHNIQUE. DISCHARGE INSTRUCTIONS GIVEN TO PT. CHART COPY SIGNED.
--- NOTE | 2019-09-01 10:48 | NUR ---
WAS GIVING REPORT TO MANNY RN IN REHAB AND SHE STATES SHE WILL NOT ACCEPT PT WITH A PICC LINE DOWN IN REHAB PER [facility] IF THEY ARE NOT ACTIVELY RECEIVING IV ABX. I STATED TO HER THE DOCTORS WANT IT TO STAY IN BECAUSE PT HAS BEEN RECEIVING A LOT OF ABX AND WILL PROBABLY NEED MORE IN THE FUTURE. SHE AGAIN STATED PER MUR[facility] WE CAN NOT TAKE THEM. I STATED TO HER I WILL AGAIN SPEAK WITH DOCTOR AND CALL HER BACK AT 1160. SHE VERBALIZED UNDERSTANDING.
--- NOTE | 2019-09-01 11:20 | NUR ---
BECKY ANP STATES TO DC PICC LINE.
--- NOTE | 2019-09-01 11:46 | NUR ---
RIGHT UPPER ARM PICC LINE DC'D BY [facility].
--- NOTE | 2019-09-01 12:41 | NUR ---
PT TAKEN DOWN TO REHAB VIA BED TO ROOM 1114-A.
== END 2019-09-01 12:43 | DRG 853 ==
LOC: D.ICU 12:07 → D.M2 13:56 → D.ICU 13:56 → D.M2 08-24 16:23
PROVIDERS: Family Medicine; Internal Medicine Interventional Cardiology; Internal Medicine Pulmonary Disease; ADMIT Internal Medicine Nephrology; ATTEND Internal Medicine Nephrology
PROC: B2181ZZ Fluoroscopy of Left Internal Mammary Bypass Graft using Low Osmolar Contrast (ICD-10-PCS; 2019-08-24)
PROC: B2151ZZ Fluoroscopy of Left Heart using Low Osmolar Contrast (ICD-10-PCS; 2019-08-24)
PROC: B2121ZZ Fluoroscopy of Single Coronary Artery Bypass Graft using Low Osmolar Contrast (ICD-10-PCS; 2019-08-24)
PROC: 027036Z Dilation of Coronary Artery, One Artery with Three Drug-eluting Intraluminal Devices, Percutaneous Approach (ICD-10-PCS; principal; 2019-08-24 13:00)
PROC: 4A023N7 Measurement of Cardiac Sampling and Pressure, Left Heart, Percutaneous Approach (ICD-10-PCS; 2019-08-24 13:00)
DX: A41.9 Sepsis, unspecified organism (principal); I21.4 Non-ST elevation (NSTEMI) myocardial infarction; R65.21 Severe sepsis with septic shock; G93.41 Metabolic encephalopathy; J96.01 Acute respiratory failure with hypoxia; I50.23 Acute on chronic systolic (congestive) heart failure; J18.9 Pneumonia, unspecified organism; N39.0 Urinary tract infection, site not specified; I24.8 Other forms of acute ischemic heart disease; I25.10 Atherosclerotic heart disease of native coronary artery without angina pectoris; E87.6 Hypokalemia; I08.1 Rheumatic disorders of both mitral and tricuspid valves; D50.9 Iron deficiency anemia, unspecified; Z86.73 Personal history of transient ischemic attack (TIA), and cerebral infarction without residual deficits

== ENCOUNTER 2019-08-31 17:52 | Inpatient (IN) | payer MEDICARE, BC ==
[~2019-08-31] VITALS: Ht 172.7 cm; Wt 65.8 kg
[~2019-08-31 17:52] MED LIST: ACETAMINOPHEN325 MG PO; FLUTICASONE PRO16 GM NASAL; FUROSEMIDE20 MG PO; GABAPENTIN100 MG PO; IPRAT-ALBUT 0.5-3 ML INH; LIPITOR20 MG PO; MEGACE400 MG/10 PO; MUCINEX DM ER1 EAC1 PO; PLAVIX75 MG PO; PROTONIX40 MG PO; PROZAC20 MG PO; REMERON30 MG PO; TESSALON PERLE100 MG PO
--- NOTE | 2019-09-01 14:00 | NUR ---
RECIEVED PER BED TO ROOM 1114A.PLACED ON O2 AT 3L/NC.ORIENTED TO ROOM AND SURROUNDINGS.SISTER AT BEDSIDE.
--- NOTE | 2019-09-01 15:52 | NUR ---
RIGHT HEEL HAS UNSTAGEABLE PRESSURE INJURY MEASURING 2CM X 2CM AND IS COVERED WITH ESCHAR. RECOMMENDED DAILY CLEANSING AND PAINTING WITH BETADINE. COVERING WITH 4X4S AND WEARING HEEL PROTECTORS WHEN IN BED. ALSO KEEPING HEELS ELEVATED (FLOATED). RIGHT GROIN HAS A DRYING BLISTER. NO DRAINAGE OR ODOR IS NOTED. PERINEAL AREA IS RED AND PEELING. CALMOSEPTINE CREAM IS BEING USED DAILY AND NEEDED . LEFT COCCYX HAS A DEEP TISSUE INJURY MEASURING 1CM X 1CM. RIGHT COCCYX HAS A 2CM X 2CM NONBLANCHABLE RED STAGE 1 PRESSURE INJURY. PT NEEDS TO BE TURNED/REPOSITIONED Q 2 HOURS. WEDGES HAVE BEEN PROVIDED FOR SUPPORT WHILE REPOSITIONED. WOUND CARE WILL CONTINUE MONITORING.
--- NOTE | 2019-09-01 19:15 | NUR ---
PT LYING IN BED RESTING QUIETLY. WAKES TO VERBAL STIMULI. CL IN REACH. NO DISTRESS NOTED. BED IN LOW SIDE RAILS X2. LUNGS DIMINISHED. BOWEL ACTIVE X4. DROP FOOT NOTED TO RIGHT FOOT. 3L OF 2L ON NC. HEEL PROTECTORS ON. HEELS BRIDGED. WILL CONTINUE TO MONITOR. A/O X4.
[2019-09-01 19:53] VITALS: BP 105/54; BMI 22.0
--- NOTE | 2019-09-02 00:46 | NUR ---
I have reviewed this patient and I concur with the Shift Assessment completed by the Licensed Practical Nurse today this shift.
[2019-09-02 07:09] LABS: BASOPHILS 0.3 % (0-2); EOSINOPHILS 5.8 % (0-7); HEMATOCRIT 37.7 % (42.0-54.0); HEMOGLOBIN 12.4 g/dL (13.5-17.5); IMMATURE GRANULOCYTES 0.6 % (0-5); LYMPHOCYTES 21.7 % (15-50); MCH 28.8 pg (26.0-34.0); MCHC 32.9 g/dL (31.0-37.0); MCV 87.7 fL (80.0-100.0); MEAN PLATELET VOLUME 8.3 fL (7.4-10.4); MONOCYTES 9.2 % (2-11); NEUTROPHILS 62.4 % (40-80); PLATELET COUNT 525 10x3/uL (130-400); RDW 15.2 % (11.5-14.5); WBC 14.7 10x3/uL (4.8-10.8)
[2019-09-02 07:16] LABS: CALC OSMOLALITY 274 mosm/kg (275-300); CALCIUM 8.3 mg/dL (8.5-10.1); CARBON DIOXIDE 26.4 mmol/L (21.0-32.0); CHLORIDE - SERUM 103 mmol/L (98-107); CREATININE - SERUM 0.7 mg/dL (0.6-1.3); GLUCOSE 119 mg/dL (74-106); POTASSIUM - SERUM 4.1 mmol/L (3.5-5.1); SODIUM 136 mmol/L (136-145); UREA NITROGEN 18 mg/dL (7-18); eGFR NON AFRICAN AMERICAN > 90 mL/min (90-120)
[2019-09-02 08:39] VITALS: BP 101/60
--- NOTE | 2019-09-02 09:00 | NUR ---
AM MEDS GIVEN, V/S TAKEN, WCTM.
[2019-09-02 09:30] VITALS: Ht 172.7 cm; Wt 65.8 kg
--- NOTE | 2019-09-02 10:30 | NUR ---
PATIENT ADMITTED TO REHAB FROM ACUTE FLOOR. PATIENT LIVES AT THE [facility] IN [facility] AND PLANS ARE TO DISCHARGE BACK THERE. DME AT HOME IS A ROLLING WALKER. HIS PCP IS DR. RODRIGUES. WILL CONTINUE TO FOLLOW WITH PATIENT.
--- NOTE | 2019-09-02 18:21 | NUR ---
STATES "I THINK I HAVE TURNED THE CORNER." FEELING BETTER, EATING BETTER. WOUND CARE, HEELS BRIDGED. WILL CONTINUE TO MONITOR.
--- NOTE | 2019-09-02 20:00 | NUR ---
PATIENT RECEIVED SITTING UP IN BED. ASSESSMENT & VITAL SIGNS DONE. NO C/O PAIN OR DISTRESS. BED LOW. CALL LIGHT WITHIN REACH. SAVAGE PATENT. WILL CONTINUE TO MONITOR.
[2019-09-02 20:46] VITALS: BP 100/60
--- NOTE | 2019-09-03 00:25 | NUR ---
I have reviewed this patient and I concur with the Shift Assessment completed by the Licensed Practical Nurse today this shift.
--- NOTE | 2019-09-03 02:30 | NUR ---
PATIENT TURNED FROM RIGHT SIDE TO LEFT SIDE. PATIENT ASSIST BY PULLING ON SIDE RAIL. PATIENT BED LOW. CALL LIGHT WITHIN REACH. WILL CONTINUE TO MONITOR.
--- NOTE | 2019-09-03 08:02 | NUR ---
PATIENT IS ALERT. SITTING UP IN BED TO EAT BREAKFAST. BED ALARM ON. VOICES NO NEEDS AT THIS TIME. CALL LIGHT WITHIN REACH. WILL CONTINUE WITH PLAN OF CARE
[2019-09-03 08:07] VITALS: BP 100/61
[2019-09-03 08:10] LABS: BASOPHILS 0.2 % (0-2); EOSINOPHILS 3.7 % (0-7); HEMATOCRIT 37.4 % (42.0-54.0); HEMOGLOBIN 12.4 g/dL (13.5-17.5); IMMATURE GRANULOCYTES 0.6 % (0-5); LYMPHOCYTES 23.4 % (15-50); MCHC 33.2 g/dL (31.0-37.0); MCV 87.4 fL (80.0-100.0); MEAN PLATELET VOLUME 8.3 fL (7.4-10.4); MONOCYTES 8.2 % (2-11); NEUTROPHILS 63.9 % (40-80); PLATELET COUNT 494 10x3/uL (130-400); RBC 4.28 10x6/uL (4.20-6.10); RDW 15.1 % (11.5-14.5); WBC 14.4 10x3/uL (4.8-10.8)
[2019-09-03 08:20] LABS: CALC OSMOLALITY 280 mosm/kg (275-300); CALCIUM 8.4 mg/dL (8.5-10.1); CARBON DIOXIDE 28.4 mmol/L (21.0-32.0); CHLORIDE - SERUM 105 mmol/L (98-107); CREATININE - SERUM 0.8 mg/dL (0.6-1.3); GLUCOSE 121 mg/dL (74-106); POTASSIUM - SERUM 4.2 mmol/L (3.5-5.1); SODIUM 139 mmol/L (136-145); UREA NITROGEN 18 mg/dL (7-18); eGFR NON AFRICAN AMERICAN > 90 mL/min (90-120)
--- NOTE | 2019-09-03 10:10 | NUR ---
OCCUPATIONAL THERAPIST WORKING WITH PATIENT. HELPING PATIENT WITH A SHOWER.
--- NOTE | 2019-09-03 14:31 | NUR ---
PATIENT IN REHAB ROOM. WORKING WITH PHYSICAL THERAPIST. DENIES ANY PAIN DISCOMFORT AT THIS TIME.
--- NOTE | 2019-09-03 15:54 | NUR ---
PATIENT HELPED INTO BATHROOM. MODERATE ASST OF ONE
--- NOTE | 2019-09-03 19:22 | NUR ---
AWAKE AND RESTING IN BED. STATES HE IS "WORN OUT". RESPIRATIONS UNLABORED. SAVAGE PATENT. O2/3L ON PER NASAL CANNULA. NO ACUTE DISTRESS NOTED. CALL LIGHT IN REACH.
[2019-09-03 20:34] VITALS: BP 85/47
--- NOTE | 2019-09-04 00:32 | NUR ---
RESTING IN BED WITH RESPIRATIONS UNLABORED. NO DISTRESS NOTED. HUSSEIN PATENT. CALL LIGHT IN REACH.
--- NOTE | 2019-09-04 03:14 | NUR ---
CONTINUES SLEEPING WIHT RESPIRATIONS UNLABORED. NO DISTRESS NOTED.
--- NOTE | 2019-09-04 05:36 | NUR ---
QUIET HOURS. NO ACUTE CHANGES IN CONDITION THIS SHIFT. SAVAGE PATENT. NO ACUTE DISTRESS NOTED.
--- NOTE | 2019-09-04 08:15 | NUR ---
PT RESTING IN BED WITH EYES OPEN CALL LIGHT IN REACH NO PROBLEMS WILL MONITER
--- NOTE | 2019-09-04 16:57 | NUR ---
I have reviewed this patient and I concur with the Shift Assessment completed by the Licensed Practical Nurse today this shift.
[2019-09-04 18:36] VITALS: BP 138/73
--- NOTE | 2019-09-04 19:39 | NUR ---
GREETED PATIENT AND INTRODUCED MYSELF HIS NURSE. PATIENT IS LAYING IN BED RESTING AT THIS TIME.O2 AT 3L HIGH FLOW NC IN USE. RESPIRATIONS EVEN. NO S/S OF DISTRESS. CALL LIGHT IN REACH.
[2019-09-04 19:45] VITALS: BP 99/48
--- NOTE | 2019-09-04 22:24 | NUR ---
PT. RESTING QUIETLY WITH EYES CLOSED. 02 AT 3L IN USE VIA NC. RESPIRATIONS EVEN. NO S/S OF DISTRESS. CALL LIGHT IN REACH.
--- NOTE | 2019-09-05 01:45 | NUR ---
PT. RESTING QUIETLY WITH EYES CLOSED. RESPIRATIONS EVEN. NO S/S OF DISTRESS. CALL LIGHT IN REACH.
--- NOTE | 2019-09-05 08:00 | NUR ---
PATIENT SITTING UP IN BED TO EAT BREAKFAST. ALERT/ORIENT. CALL LIGHT WITHIN REACH. VOICES NO NEEDS AT THIS. WILL CONTINUE WITH PLAN OF CARE
[2019-09-05 08:15] VITALS: BP 94/54
--- NOTE | 2019-09-05 10:10 | NUR ---
PATIENTS SISTER VISITING IN ROOM. PATIENT TURNED TO RIGHT SIDE. ASST OF TWO PERSON TO TURN IN BED.
--- NOTE | 2019-09-05 12:52 | NUR ---
I have reviewed this patient and I concur with the Shift Assessment completed by the Licensed Practical Nurse today this shift.
--- NOTE | 2019-09-05 17:26 | NUR ---
PATIENT INCONT OF BOWEL. TOTAL ASST OF TWO. NICANOR CARE GIVEN. TOTAL BED CHANGE
--- NOTE | 2019-09-05 18:53 | NUR ---
GREETED PATIENT AND INTRODUCED MYSELF HIS NURSE. REMOVED DINNER TRAY AND REPOSITIONED PT FOR COMFORT. O2 AT 3L IN USE VIA NC. RESPIRATIONS EVEN. NO S/S OF DISTRESS. CALL LIGHT IN REACH.
[2019-09-05 19:30] VITALS: BP 104/59
--- NOTE | 2019-09-05 23:28 | NUR ---
PT. RESTING QUIETLY WITH EYES CLOSED. O2 AT 3L HIGH FLOW NC IN USE. RESPIRATIONS EVEN. NO S/S OF DISTRESS. CALL LIGHT IN REACH.
--- NOTE | 2019-09-06 01:05 | NUR ---
PT. RESTING QUIETLY WITH EYES CLOSED. RESPIRATIONS EVEN. NO S/S OF DISTRESS. O2 AT 3L HIGH FLOW NC. SR UP X 2. BED IN LOWEST POSITION. CALL LIGHT IN REACH.
--- NOTE | 2019-09-06 06:15 | NUR ---
PT. CLEANED OF INCONTINENT BOWEL AND BLADDER. SAVAGE HAD KINKED AND LEAKED. PATIENT IS VERY DEPRESSED AND SCREAMED OUT "WHY DONT YOU JUST GO AHEAD AND KILL ME." THIS NURSE STATED THAT HE DIDNT NEED TO THINK OR TALK IN THAT WAY AND TO THINK POSITIVE ABOUT GETTING BETTER. WCTM.
[2019-09-06 07:12] LABS: BASOPHILS 0.2 % (0-2); EOSINOPHILS 3.2 % (0-7); HEMATOCRIT 34.5 % (42.0-54.0); HEMOGLOBIN 11.1 g/dL (13.5-17.5); IMMATURE GRANULOCYTES 0.4 % (0-5); LYMPHOCYTES 21.2 % (15-50); MCH 28.3 pg (26.0-34.0); MCHC 32.2 g/dL (31.0-37.0); MEAN PLATELET VOLUME 8.2 fL (7.4-10.4); MONOCYTES 8.7 % (2-11); NEUTROPHILS 66.3 % (40-80); PLATELET COUNT 446 10x3/uL (130-400); RBC 3.92 10x6/uL (4.20-6.10); RDW 15.2 % (11.5-14.5); WBC 14.2 10x3/uL (4.8-10.8)
[2019-09-06 07:20] LABS: CALC OSMOLALITY 279 mosm/kg (275-300); CALCIUM 8.1 mg/dL (8.5-10.1); CHLORIDE - SERUM 104 mmol/L (98-107); CREATININE - SERUM 0.8 mg/dL (0.6-1.3); GLUCOSE 126 mg/dL (74-106); POTASSIUM - SERUM 3.8 mmol/L (3.5-5.1); SODIUM 139 mmol/L (136-145); UREA NITROGEN 13 mg/dL (7-18); eGFR NON AFRICAN AMERICAN > 90 mL/min (90-120)
--- NOTE | 2019-09-06 13:32 | NUR ---
PATIENT STATING REPEATEDLY THAT HE WANTS TO . HE WANTS TO CLOSE HIS EYES AND . REDIRECTED MANY TIMES. PT REFUSED THERAPY.
--- NOTE | 2019-09-06 14:46 | NUR ---
Nutrition Follow-up: Diet: Regular [facility] Soft + Ensure with meals PO intake: ~31% average x last 12 meals. Reports that his appetite is "terrible." States that he is "tired of" the Ensure. He has not food request at this time. Last BM: 09/06/19. WT: 145# (09/02/19) Meds noted: megace, lasix, remeron. Labs noted: 126mg/dL Continue diet, nutrition supplements, and appetite stimulants. Encouraged PO intake. Will continue to honor any food preferences. RD following.
--- NOTE | 2019-09-06 15:23 | RHP ---
PATIENT: SHERIDAN SOLIS MEDICAL RECORD: [id number] ACCOUNT: [id number] LOCATION:[facility] : 40 ADMISSION DATE: 09/01/19 REHABILITATION HISTORY AND PHYSICAL EXAMINATION POST ADMISSION PHYSICIAN EXAMINATION ADMITTING DIAGNOSIS: Acute toxic metabolic encephalopathy. HISTORY OF PRESENT ILLNESS: The patient is a 79-year-old gentleman who is admitted secondary to metabolic encephalopathy secondary to septic shock. He actually was a transfer with bacteremia, likely urinary source. He also had acute gastrointestinal complaints of severe diarrhea. He had to be placed on pressors and fluid boluses upon admission here. He had multifocal pneumonia, UTI, hematuria, Gram-negative bacteremia. He actually had an elevation of his troponin, which appeared to be a non-ST segment elevation WI. He was transferred to [facility] on 08/21/2019 for higher level of care. He was hypertensive upon admission and hypoxic. He had bilateral airspace disease and interstitial prominence. Cardiology saw him throughout his stay. He was taken to the warehouse laborer on 08/24/2019 for percutaneous transluminal coronary angioplasty of stent of the vein graft to his right coronary artery from 95% stenosis to 0. Speech therapy has been following at bedside swallow eval. He is on mechanical soft with thin liquids when able to tolerate foods. Pulmonary is seeing him throughout his stay, felt like he might be developing some ARDS, but this has not come situation yet. The patient's family no longer want hospice at this time. Apparently, he had been on this in the past and would like to continue improving. Previously, he was moderately independent with a walker for ADLs and mobility. Currently, he has had prolonged immobility, progressive generalized weakness, especially in his lower extremities, has a decreased tolerance to PT. He is very fatigued, limited flexion and extension. He has got proximal muscle strength that is decreased, mod to max assist for ADLs, mod to max assist for sit to stand and bed to chair. He is highly motivated and has good family support to get back home. COMORBIDITIES: In this patient include septic shock, oropharyngeal dysphagia, acute toxic encephalopathy, Gram-negative bacteremia, bilateral pleural effusions, multilobar pneumonia, hypoxia, leukocytosis, rhinitis, tricuspid regurg, anemia, non-ST segment WI, history of coronary artery disease with CABG, depression, history of prostate cancer, protein-calorie malnutrition, low albumin. PAST MEDICAL HISTORY: Significant for dysphagia, coronary artery bypass grafting, CHF, prostate cancer, diarrhea, depression. PAST SURGICAL HISTORY: None. ALLERGIES: No known drug allergies. CURRENT MEDICATIONS: Include Megace 400 mg daily. He is on Neurontin 100 mg daily, furosemide 20 mg daily, Flonase nasal spray daily, fluoxetine 20 mg daily, Plavix 75 mg daily, Protonix 40 mg daily, Remeron 30 mg at bedtime, Mucinex 1 tab b.i.d., Tessalon Perles 100 mg t.i.d., Lipitor 20 mg at bedtime, DuoNeb updrafts, Tylenol 650 q.4 hours p.r.n., and MiraLax 17 g in 8 ounces of water daily. HABITS: No alcohol or tobacco use. HISTORY AND PHYSICAL [id number] SHERIDAN SOLIS FAMILY HISTORY: Noncontributory. SOCIAL HISTORY: The patient hopes to return back home and get back to his prior level of functioning. REVIEW OF SYSTEMS: GENERAL: Does complain of weakness and fatigue. HEENT: Denies cold, cough, or congestion. CARDIOVASCULAR: Denies any chest pain. PHYSICAL EXAMINATION: VITAL SIGNS: Stable, afebrile. GENERAL: A thin elderly gentleman, in no acute distress, alert upon exam. HEENT: Normocephalic and atraumatic. Mucosa moist. NECK: Supple. No lymphadenopathy. LUNGS: Clear in upper botello. HEART: Regular rate and rhythm. He does have a holosystolic murmur. ABDOMEN: Soft, benign, and nondistended. Positive bowel sounds times 4. EXTREMITIES: No clubbing, cyanosis or edema. NEUROLOGIC: Slow to mentate. He has noted proximal muscle weakness. LABORATORY DATA: White count is 14.7, H&H 12 and 37, and platelet count is 525. His sodium is 136, potassium 4.1, BUN and creatinine of 18 and 0.7, blood sugar is noted to be 119. ASSESSMENT: This 79-year-old gentleman admitted to the rehab with a working diagnosis of acute toxic metabolic encephalopathy secondary to gram-negative bacteremia complicated by coronary artery disease. The patient has potential to make improvement. We instituted the following multidisciplinary therapies including, but not limited to physical, occupational, respiratory, speech, nutritional services, prosthetics and orthotics. Given his complex medical condition and risk for more complications, rehabilitation services cannot be provided at a low level of care such as jail facility. PLAN: 1. Admit to [facility] rehab for an intensive inpatient therapy to include the following disciplines: A. Physical therapy to improve gait, all transfer skills and bed mobility to a modified independent level. B. Occupational therapy to a modified independent level. C. Case management to assist with discharge planning and placement options. D. Nutrition to assist with nutritional needs. E. Rehabilitation nursing to assist in monitoring the patient's underlying medical conditions and to assist with any type of bowel or bladder management. 2. The patient's current medication and medical care will be continued. 3. The patient will be placed on standard fall precautions. 4. The patient's estimated length of stay is approximately 7-10 days. 5. We will discuss the patient during care team staff meeting this week. We will continue on current medications as prescribed and I will see again in the a.m. TRANSINT:[id number] Voice Confirmation ID: [id number] DOCUMENT ID: [id number] HISTORY AND PHYSICAL [id number] SHERIDAN SOLIS notes whether there has been none or any medical/functional change since admission: - No change since prescreen. TRAE attests patient continues to be appropriate for IRF: - Continues to be appropriate. ANTHONY DIXON MD at 1523 CC: [id number] DICTATION DATE: 09/02/19913 ADJUNCT BUSINESS INSTRUCTOR: 09/02/19 1130 ADM IN [facility] [address] [place] [address]
[2019-09-06 18:51] VITALS: BP 124/65
[2019-09-06 19:30] VITALS: BP 89/46
--- NOTE | 2019-09-06 19:30 | NUR ---
BEDSIDE REPORT COMPLETE. PT LYING IN BED EYES CLOSED RESTING. RR EVEN AND UNLABORED. F/C PATENT AND FREE OF KINKS. EASILY AROUSED WITH VERBAL STIMULI. PLEASANT AFFECT. DENIES ANY NEEDS OR PAIN. VS STABLE. SHIFT ASSESSMENT COMPLETE. CL IN REACH. FALL PRECAUTIONS IN PLACE. WILL CONTINUE TO MONITOR
--- NOTE | 2019-09-07 00:40 | NUR ---
QUIET HOURS. PT LYING IN BED EYES CLOSED RESTING COMFORTABLY. RR EVEN AND UNLABORED. CL IN REACH
--- NOTE | 2019-09-07 04:10 | NUR ---
PT LYING IN BED EYES CLOSED RESTING COMFORTABLY. NO SIGNS OF ACUTE DISTRESS NOTED. CL IN REACH
--- NOTE | 2019-09-07 06:25 | NUR ---
LYING IN BED ON RIGHT SIDE EYES CLOSED RESTING. RR EVEN AND UNLABORED. CL IN REACH
--- NOTE | 2019-09-07 07:09 | NUR ---
GREETED PATIENT AND INTRODUCED MYSELF HIS NURSE. PATIENT IS LAYING IN BED RESTING QUIETLY AT THIS TIME. O2 AT 2L IN USE. RESPIRATIONS EVEN. NO S/S OF DISTRESS. CALL LIGHT IN REACH.
--- NOTE | 2019-09-07 07:38 | NUR ---
DC'D SAVAGE CATHETER. CATHETER CLOGGED. PT. TOLERATED PROCEDURE. SURROUNDING CLEANED AND KEELY APPLIED.
[2019-09-07 08:18] VITALS: BP 117/49
--- NOTE | 2019-09-07 09:30 | NUR ---
PT STATED TO OT THAT HE DIDNT WANT TO BE HERE ANYMORE AND TO JUST LET HIM .
--- NOTE | 2019-09-07 09:45 | NUR ---
PT IN THERAPY AT THIS TIME. PT ABLE TO URINATE AFTER REMOVAL OF SAVAGE.
--- NOTE | 2019-09-07 11:00 | NUR ---
PT BACK IN ROOM FROM THERAPY. CALL LIGHT IN REACH.
--- NOTE | 2019-09-07 13:33 | NUR ---
PT. IN THERAPY AT THIS TIME.
--- NOTE | 2019-09-07 15:00 | NUR ---
PT. BACK TO ROOM FROM THERAPY. ASSITED TO BATHROOM AND BACK TO BED AND REPOSITIONED FOR COMFORT. CALL LIGHT IN REACH.
--- NOTE | 2019-09-07 19:30 | NUR ---
BEDSIDE REPORT COMPLETE. PT LYING IN BED SUPINE EYES CLOSED RESTING. RR EVEN AND UNLABORED. EASILY AROUSED WITH VERBAL STIMULI. VS STABLE. SHIFT ASSESSMENT COMPLETE. CL IN REACH. FALL PRECAUTIONS IN PLACE. WILL CONTINUE TO MONITOR
[2019-09-07 19:49] VITALS: BP 88/45
--- NOTE | 2019-09-08 00:35 | NUR ---
QUIET HOURS. PT LYING IN BED ON LEFT SIDE EYES CLOSED RESTING COMFORTABLY. RR EVEN AND UNLABORED. CL IN REACH
--- NOTE | 2019-09-08 05:06 | NUR ---
PT LYING IN BED ON RIGHT SIDE EYES CLOSED RESTING. RR EVEN AND UNLABORED. CL IN REACH
--- NOTE | 2019-09-08 06:10 | NUR ---
INCONTINENCE CARE DONE. CHUX AND BRIEF CHANGED. CALMOSEPTINE APPLIED TO GROIN AND BUTTOCKS.
[2019-09-08 07:46] LABS: BASOPHILS 0.3 % (0-2); EOSINOPHILS 3.7 % (0-7); HEMATOCRIT 33.1 % (42.0-54.0); HEMOGLOBIN 10.7 g/dL (13.5-17.5); IMMATURE GRANULOCYTES 0.6 % (0-5); LYMPHOCYTES 25.5 % (15-50); MCH 28.4 pg (26.0-34.0); MCHC 32.3 g/dL (31.0-37.0); MCV 87.8 fL (80.0-100.0); MEAN PLATELET VOLUME 8.2 fL (7.4-10.4); MONOCYTES 8.6 % (2-11); NEUTROPHILS 61.3 % (40-80); PLATELET COUNT 428 10x3/uL (130-400); RBC 3.77 10x6/uL (4.20-6.10); RDW 15.8 % (11.5-14.5); WBC 10.9 10x3/uL (4.8-10.8)
[2019-09-08 08:00] VITALS: BP 116/65
[2019-09-08 08:09] LABS: CALC OSMOLALITY 280 mosm/kg (275-300); CALCIUM 8.1 mg/dL (8.5-10.1); CARBON DIOXIDE 30.3 mmol/L (21.0-32.0); CHLORIDE - SERUM 105 mmol/L (98-107); CREATININE - SERUM 0.7 mg/dL (0.6-1.3); GLUCOSE 114 mg/dL (74-106); POTASSIUM - SERUM 3.8 mmol/L (3.5-5.1); SODIUM 140 mmol/L (136-145); UREA NITROGEN 16 mg/dL (7-18); eGFR NON AFRICAN AMERICAN > 90 mL/min (90-120)
--- NOTE | 2019-09-08 16:28 | NUR ---
Nutrition Follow-up: Diet: Regular + Ensure with meals PO intake: ~50% average. Reports that he drinks 2 regular Cokes with each meal tray. He will eat desserts and sweets. States that he is drinking Ensure some. Patient's sister is bringing him a ham and cheese sandwich every day for lunch and reports that he is eating it all. Last BM: 09/07/19 x 2. WT: 145# (09/02/19), no new wt Meds noted: megace, lasix, remeron. Labs noted: Glu 114. Noted that glucose is consistently high. Encouraged intake of protein rich foods. Hopefully appetite will continue to improve. RD following.
[2019-09-08 19:30] VITALS: BP 96/43
--- NOTE | 2019-09-08 19:56 | NUR ---
GREETED PATIENT AND INTRODUCED MYSELF HIS NURSE. PATIENT IS LAYING IN BED RESTING QUIETLY AT THIS TIME. RESPIRATIONS EVEN. NO S/S OF DISTRESS. NO PAIN NOTED BY PT. DENIES ANY FURTHER NEEDS. CALL LIGHT IN REACH.
--- NOTE | 2019-09-09 02:54 | NUR ---
PT. CLEANED OF INCONTINENT URINE. APPLIED KEELY ON BUTTOCKS AND GROIN AREA. PT. TOLERATED. REPOSTIONED FOR COMFORT. CALL LIGHT IN REACH.
--- NOTE | 2019-09-09 07:45 | NUR ---
A/A/OX4. DENIES ANY PAIN AT THIS TIME AND ONLY REQUESTS IS TO LEAVE HIM ALONE AND TURN HIS LIGHT OFF. TOOK BREAKFAST TRAY IN AND STATES HE DOESN'T WANT TO EAT AT THIS TIME. ASSESSMENT COMPLETED AND WILL CONTINUE POC. CALL LIGHT IN REACH. BED IN LOW POSITION.
[2019-09-09 08:09] VITALS: BP 104/60
--- NOTE | 2019-09-09 09:30 | NUR ---
TOOK MEDS TO PT AND STATES HE DOESNT UNDERSTAND WHY HE HAS TO TAKE ALL THIS MEDICATION. STATES "IT'S JUST A BUNCH OF CRAP TO GIVE HIM ALL THIS MED."
--- NOTE | 2019-09-09 11:40 | NUR ---
I have reviewed this patient and I concur with the Shift Assessment completed by the Licensed Practical Nurse today this shift.
--- NOTE | 2019-09-09 16:00 | NUR ---
ATTEMPTED TO GET PT UP TO BATHROOM AND STATES "HE DOESNT NEED TO GO AND DO NOT WHEEL HIM IN BATHROOM AND TELEVISION JOURNALIST THE LIGHT." DEPENDS IS DRY AT THIS TIME.
--- NOTE | 2019-09-09 18:28 | NUR ---
STILL REFUSED TO LET ME GET HIM UP TO THE BATHROOM. STATES "HE JUST WANTS TO BE LEFT ALONE AND NOT BOTHERED. ATTEMPTED TO HELP HIM UP AND PULLED HIS ARM AWAY FROM ME AND WOULD NOT TRY TO GET UP."
--- NOTE | 2019-09-09 19:10 | NUR ---
GREETED PATIENT AND INTRODUCED MYSELF HIS NURSE. PATIENT IS SITTING IN CHAIR AT THIS TIME. OFFERED PT. TO GO BACK TO BED BUT HE WANTS TO SIT UP FOR A WHILE. REMINDED PT. TO USE CALL LIGHT WHEN HE WAS READY TO GO BACK TO BED. CALL LIGHT IN REACH.
--- NOTE | 2019-09-09 19:10 | NUR ---
GREETED PATIENT AND INTRODUCED MYSELF HIS NURSE. PATIENT IS SITTING IN CHAIR AT THIS TIME. OFFERED PT. TO GO TO BED BUT HE WANTS TO SIT UP FOR A WHILE. REMINDED PT. TO USE CALL LIGHT WHEN HE WAS READY TO GO BACK TO BED. CALL LIGHT IN REACH.
[2019-09-09 19:30] VITALS: BP 103/49
--- NOTE | 2019-09-09 20:10 | NUR ---
ASSISTED PATIENT TO BED FROM RECLINER. POSITIONED FOR COMFORT. CALL LIGHT IN REACH. DENIES ANY NEEDS AT THIS TIME.
--- NOTE | 2019-09-10 01:35 | NUR ---
PT. RESTING QUIETLY WITH EYES CLOSED. RESPIRATIONS EVEN. NO S/S OF DISTRESS. CALL LIGHT IN REACH.
--- NOTE | 2019-09-10 04:06 | NUR ---
PT. CLEANED OF INCONTINENT URINE. PT. MUCH IMPROVED TO HELP MOVE UP IN BED. REPOSITIONED FOR COMFORT. CALL LIGHT IN REACH.
[2019-09-10 08:21] VITALS: BP 111/56
[2019-09-10 19:30] VITALS: BP 94/51
--- NOTE | 2019-09-10 19:30 | NUR ---
PT RECEIVED BEDSIDE REPORT COMPLETE. PT LYING IN BED ON LEFT SIDE RESTING QUIETLY. ALERT AND ORIENTED X4. DENIES ANY NEEDS OR PAIN. CONTINUES ON 2L VIA NC. VS STABLE. SHIFT ASSESSMENT COMPLETE. CL IN REACH. FALL PRECAUTIONS IN PLACE. WILL CONTINUE TO MONITOR
--- NOTE | 2019-09-11 01:43 | NUR ---
PT LYING IN BED ON LEFT SIDE EYES CLOSED RESTING COMFORTABLY. RR EVEN AND UNLABORED. CL IN REACH
--- NOTE | 2019-09-11 04:55 | NUR ---
PT LYING IN BED EYES CLOSED RESTING QUIETLY. RR EVEN AND UNLABORED. CL IN REACH
--- NOTE | 2019-09-11 06:00 | NUR ---
INCONTINENCE CARE PERFORMED. BED LINENS CHANGED. POSITIONED PT ON RIGHT SIDE. DENIES ANY OTHER NEEDS. PT STATES "I AM READY TO , WHY DON'T GOD JUST TAKE ME" PT ALSO INFORMED MADDIE RN THAT IS SHOULD BE A DNR. WILL INFORM DR. DIXON OF PT DECISION. CL IN REACH
[2019-09-11 08:23] VITALS: BP 126/75
--- NOTE | 2019-09-11 10:58 | NUR ---
REFUSED BREAKFAST. AGREED TO TAKE MEDS BUT REFUSED TO EAT. STATED OVER AND OVER "WHY AM I ALIVE?", HE HAS A FLAT AFFECT. INCONT OF B/B. CALL LIGHT IN REACH
--- NOTE | 2019-09-11 18:00 | NUR ---
REFUSED SUPPER. DECLINED TO DRINK ENSURE OR COKE. LAYING ON SIDE IN BED. CALL LIGHT IN REACH
[2019-09-11 19:30] VITALS: BP 103/53
--- NOTE | 2019-09-11 20:59 | NUR ---
PT RECEIVED LYING IN BED EYES CLOSED RESTING COMFORTABLY. EASILY AROUSED WITH STIMULI. DENIES ANY PAIN OR NEEDS. PT STATES "I HOPE I TONIGHT" ENSURED PT WAS COMFORTABLE AND DRY. VS STABLE. SHIFT ASSESSMENT COMPLETE. CL IN REACH. FALL PRECAUTIONS IN PLACE. WILL CONTINUE TO MONITOR
--- NOTE | 2019-09-11 23:28 | NUR ---
PT LYING IN ON RIGHT SIDE EYES CLOSED RESTING COMFORTABLY. RR EVEN AND UNLABORED. CL IN REACH
--- NOTE | 2019-09-12 02:40 | NUR ---
REPOSITIONED PT TO LEFT SIDE. DENIES ANY NEEDS OR PAIN. BRIEF CLEAN AND DRY. CL IN REACH
--- NOTE | 2019-09-12 05:30 | NUR ---
INCONTINENCE CARE PROVIDED. BED LINENS CHANGED. CALMOSEPTINE APPLIED TO GROIN AND BUTTOCK. POSITIONED ON LEFT SIDE. DENIES ANY OTHER NEEDS OR PAIN. CL IN REACH
[2019-09-12 07:38] VITALS: BP 136/68
--- NOTE | 2019-09-12 13:01 | NUR ---
REFUSED BREAKFAST. STILL DEPRESSED WITH FLAT AFFECT. DENIES SUICIDAL THOUGHTS OR HAVING A PLAN FOR SELF HARM. HIS SISTER VISITS OFTEN. CALL LIGHT IN REACH
--- NOTE | 2019-09-12 16:50 | NUR ---
RESTING QUIETLY IN BED, LAYING ON SIDE. GOT UP FROM RECLINER AND WALKED TO BATHROOM AND BACK EARLIER WITH ONE PERSON ASST.
[2019-09-12 18:26] VITALS: BP 104/52
--- NOTE | 2019-09-12 19:20 | NUR ---
BEDSIDE REPORT COMPLETE. PT RECEIVED LYING IN BED SUPINE AWAKE AND ALERT. DENIES ANY NEEDS OR PAIN. NO SIGNS OF ACUTE DISTRESS NOTED. REPOSITIONED TO RIGHT SIDE. VS STABLE. SHIFT ASSESSMENT COMPLETE. CL IN REACH. FALL PRECAUTIONS IN PLACE. WILL CONTINUE TO MONITOR
--- NOTE | 2019-09-12 23:16 | NUR ---
PT LYING IN BED ON RIGHT SIDE EYES CLOSED RESTING. REPOSITIONED TO LEFT SIDE. BRIEF CLEAN AND DRY. RR EVEN AND UNLABORED. CL IN REACH
--- NOTE | 2019-09-13 02:35 | NUR ---
PT LYING IN BED ON LEFT SIDE EYES CLOSED RESTING COMFORTABLY. CL IN REACH
--- NOTE | 2019-09-13 05:30 | NUR ---
INCONTINENCE CARE PROVIDED. SM VOID. DENIES ANY OTHER NEEDS OR PAIN. POSITIONED ON RIGHT SIDE PER PT REQUEST. CL IN REACH
[2019-09-13 05:59] LABS: BASOPHILS 0.3 % (0-2); EOSINOPHILS 3.1 % (0-7); HEMATOCRIT 34.3 % (42.0-54.0); HEMOGLOBIN 10.9 g/dL (13.5-17.5); IMMATURE GRANULOCYTES 0.7 % (0-5); LYMPHOCYTES 29.5 % (15-50); MCH 28.4 pg (26.0-34.0); MCHC 31.8 g/dL (31.0-37.0); MCV 89.3 fL (80.0-100.0); MEAN PLATELET VOLUME 8.3 fL (7.4-10.4); MONOCYTES 9.5 % (2-11); NEUTROPHILS 56.9 % (40-80); PLATELET COUNT 383 10x3/uL (130-400); RBC 3.84 10x6/uL (4.20-6.10); RDW 16.6 % (11.5-14.5); WBC 11.2 10x3/uL (4.8-10.8)
[2019-09-13 06:13] LABS: CALC OSMOLALITY 286 mosm/kg (275-300); CALCIUM 8.3 mg/dL (8.5-10.1); CARBON DIOXIDE 26.3 mmol/L (21.0-32.0); CHLORIDE - SERUM 107 mmol/L (98-107); CREATININE - SERUM 0.8 mg/dL (0.6-1.3); GLUCOSE 146 mg/dL (74-106); POTASSIUM - SERUM 3.9 mmol/L (3.5-5.1); SODIUM 142 mmol/L (136-145); UREA NITROGEN 16 mg/dL (7-18); eGFR NON AFRICAN AMERICAN > 90 mL/min (90-120)
[2019-09-13 07:58] VITALS: BP 124/62
--- NOTE | 2019-09-13 10:58 | NUR ---
ATE BREAKFAST BUT REFUSED ALL MEDS THIS AM. FLAT AFFECT. STATES HE DOES NOT WANT TO LIVE BUT DOES NOT HAVE A PLAN TO KILL HIMSELF OR DO ANY KIND OF SELF HARM. INCONT OF URINE.
--- NOTE | 2019-09-13 15:06 | NUR ---
Nutrition Follow-up: Chart reviewed. Pt is depressed and refused meds but ate breakfast today. Diet: Regular Mech Soft + Ensure PO intake: ~18% average x last 6 meals as recorded. Sister is bring lunch from home and snacks for patient to eat throughout the day. She states that he has been eating well on the foods brought from home. States that he is also drinking Ensure. Requested to change to 1 coke per meal tray instead of 2. Last BM: 09/12/19. WT: 145# (09/02/19), no new wt Meds noted: megace, lasix, remerone. Labs noted: Glu 146. Need new wt. Will update diet preferences per request. Continue current diet and oral nutrition supplements. Will continue to monitor PO intake and wt trend. RD following.
--- NOTE | 2019-09-13 16:16 | NUR ---
LAYING IN BED RESTING QUIETLY. HAD ANGRY OUTBURST AT NURSE EARLIER BLAMING HER BECAUSE HE REFUSED HIS AM MEDS. HE C/O ABOUT SITTING UP IN RECLINER AND WALKING AT ALL. HIS AFFECT IS FLAT. HE HAS BEEN EATING MORE TODAY. MOSTLY JUNK FOOD (COKES, COSME PIES IN A PACKAGE AND COOKIES).
--- NOTE | 2019-09-13 19:15 | NUR ---
BEDSIDE REPORT COMPLETE. PT RECEIVED LYING IN BED ON RIGHT SIDE EYES CLOSED RESTING COMFORTABLY. EASILY AROUSED WITH VERBAL STIMULI. DENIES ANY NEEDS OR PAIN. NO SIGNS OF ACUTE DISTRESS NOTED. VS STABLE. SHIFT ASSESSMENT COMPLETE. CL IN REACH. FALL PRECAUTIONS IN PLACE. WILL CONTINUE TO MONITOR
[2019-09-13 19:54] VITALS: BP 103/53
--- NOTE | 2019-09-14 02:10 | NUR ---
PT LYING IN BED ON LEFT SIDE EYES CLOSED RESTING COMFORTABLY. RR EVEN AND UNLABORED. CL IN REACH
--- NOTE | 2019-09-14 04:24 | NUR ---
PT LYING IN BED EYES CLOSED RESTING. CL IN REACH
[2019-09-14 08:43] VITALS: BP 110/63
--- NOTE | 2019-09-14 19:45 | NUR ---
GREETED PATIENT AND INTRODUCED MYSELF HIS NURSE. PATIENT IS VERY UPSET AT THIS TIME CONCERNING GETTING A ROOMMATE. THIS NURSE EXPLAINED TO PATIENT THAT IT MIGHT BE GOOD FOR HIM TO HAVE SOME COMPANY. PT. STILL UNHAPPY. SITTING IN WHEELCHAIR AT THIS TIME. CALL LIGHT IN REACH.
[2019-09-14 21:15] VITALS: BP 128/56
--- NOTE | 2019-09-14 21:25 | NUR ---
CALLED PTS. SISTER TROY AND SPOKE WITH HER CONCERNING HER BROTHER BEING SO DEPRESSED AND ANGRY THIS EVENING ABOUT GETTING A NEW ROOMMATE. SHE STATED THAT SHE WOULD CALL HIM AND SEE IF SHE COULD CHEER HIM UP.
--- NOTE | 2019-09-15 03:24 | NUR ---
PT. RESTING QUIETLY WITH EYES CLOSED. RESPIRATIONS EVEN. NO S/S OF DISTRESS. CALL LIGHT IN REACH.
--- NOTE | 2019-09-15 08:19 | NUR ---
ALERT AND ORIENTED. NO C/O PAIN. EATING BREAKFAST. CL IN REACH.
[2019-09-15 08:20] VITALS: BP 133/69
--- NOTE | 2019-09-15 12:30 | NUR ---
SISTER HERE. NO CHANGE IN ASSESSMENT. CL IN REACH.
--- NOTE | 2019-09-15 13:46 | NUR ---
CARE TEAM MEETING: PATIENT IS PROGRESSING IN THERAPY. TENATIVE DISCHARGE DATE IS 09/17/2019 BACK TO THE [facility]. WILL CONTINUE TO FOLLOW WITH PATIENT.
--- NOTE | 2019-09-15 14:10 | NUR ---
Nutrition Follow-up: Diet: Regular Mechanical Soft Diet PO intake: ~69% average x last 6 meals; he did not want to talk to me today Last BM: 09/12/19. WT: 145# (09/02/19)-- no new wt Meds noted: megace, lasix, remeron Labs noted: Glu 146 Skin: PU to R heel and reddened area to coccyx Recommend continue current diet. Patient's sister brings food from home as well. RD will continue to follow.
--- NOTE | 2019-09-15 16:41 | NUR ---
NO CHANGE IN ASSESSMENT. PARTICIPATED IN THERAPY TODAY. RESTING IN BED AT THIS TIME.
--- NOTE | 2019-09-15 18:48 | NUR ---
BEDISDE REPORT COMPLETE. GREETED PATIENT AND INTRODUCED MYSELF HIS NURSE. REPOSITIONED PATIENT ON LEFT SIDE WITH PILLOW BEHIND BACK FOR COMFORT. RESPIRATIONS EVEN. NO S/S OF DISTRESS. DENIES ANY FURTHER NEEDS AT THIS TIME. CALL LIGHT IN REACH.
[2019-09-15 20:54] VITALS: BP 109/58
--- NOTE | 2019-09-15 23:10 | NUR ---
PT. RESTING QUIETLY WITH EYES CLOSED. RESPIRATIONS EVEN. NO S/S DISTRESS. CALL LIGHT IN REACH.
--- NOTE | 2019-09-16 00:31 | NUR ---
PT. RESTING QUIETLY WITH EYES CLOSED. RESPIRTIONS EVEN. NO S/S OF DISTRESS. CALL LIGHT IN REACH.
--- NOTE | 2019-09-16 04:20 | NUR ---
PT. CLEANED OF INCONTINENT URINE. REPOSITIONED FOR COMFORT. CALL LIGHT IN REACH.
[2019-09-16 08:00] VITALS: BP 97/66
--- NOTE | 2019-09-16 08:00 | NUR ---
PATIENT IS ALERT/ORIENT. VOICES NO NEEDS AT THIS TIME. CALL LIGHT WITHIN REACH. WILL CONTINUE WITH PLAN OF CARE
--- NOTE | 2019-09-16 09:10 | NUR ---
PATIENT REFUSED AM MEDICATIONS. AFTER THIS NURSE WENT THROUGH MEDICATIONS AND WHAT MEDICATIONS ARE FOR PATIENT TOOK AM MEDICATIONS
--- NOTE | 2019-09-16 10:30 | NUR ---
PATIENT REFUSED OCCUPATIONAL THERAPY.
--- NOTE | 2019-09-16 14:15 | NUR ---
PATIENT REFUSED PHYSICAL THERAPY.
--- NOTE | 2019-09-16 16:55 | NUR ---
PATIENT INCONT OF BLADDER. BED CHANGED. NICANOR CARE GIVEN
[2019-09-16 19:05] VITALS: BP 117/60
--- NOTE | 2019-09-16 19:27 | NUR ---
GREETED PATIENT AND INTRODUCED MYSELF HIS NURSE. PATIENT IS LAYING IN BED RESTING AT THIS TIME. DENIES ANY NEEDS. RESPIRATIONS EVEN. NO S/S OF DISTRESS. CALL LIGHT IN REACH.
--- NOTE | 2019-09-17 02:52 | NUR ---
PT. RESTING QUIETLY WITH EYES CLOSED. RESPIRATIONS EVEN. NO S/S OF DISTRESS. CALL LIGHT IN REACH.
--- NOTE | 2019-09-17 07:10 | NUR ---
PT RESTING IN BED. NO SIGNS OF DISTRESS. NO IV. REDDENED AREA TO COCCYX AND GROIN. DENIES ANY FURTHER NEED AT THIS TIME. CALL LIGHT IN REACH. BED LOW POSITION. NO FAMILY AT BEDSIDE AT THIS TIME.
[2019-09-17 08:00] VITALS: BP 131/65
[2019-09-17 08:20] LABS: BASOPHILS 0.2 % (0-2); HEMATOCRIT 35.4 % (42.0-54.0); HEMOGLOBIN 11.4 g/dL (13.5-17.5); IMMATURE GRANULOCYTES 0.3 % (0-5); LYMPHOCYTES 29.5 % (15-50); MCH 28.9 pg (26.0-34.0); MCHC 32.2 g/dL (31.0-37.0); MCV 89.6 fL (80.0-100.0); MEAN PLATELET VOLUME 8.3 fL (7.4-10.4); MONOCYTES 8.2 % (2-11); NEUTROPHILS 59.8 % (40-80); PLATELET COUNT 370 10x3/uL (130-400); RBC 3.95 10x6/uL (4.20-6.10); RDW 17.5 % (11.5-14.5); WBC 11.9 10x3/uL (4.8-10.8)
[2019-09-17 08:35] LABS: CALC OSMOLALITY 281 mosm/kg (275-300); CALCIUM 8.3 mg/dL (8.5-10.1); CARBON DIOXIDE 26.1 mmol/L (21.0-32.0); CHLORIDE - SERUM 105 mmol/L (98-107); CREATININE - SERUM 0.9 mg/dL (0.6-1.3); GLUCOSE 116 mg/dL (74-106); SODIUM 139 mmol/L (136-145); UREA NITROGEN 20 mg/dL (7-18); eGFR NON AFRICAN AMERICAN 86 mL/min (90-120)
--- NOTE | 2019-09-17 11:04 | NUR ---
PATIENT DISCHARGING TO THE [facility] TODAY AND WILL TRANSPORT THERE VIA [facility]. NO DME OR HOME HEALTH NEEDED AT THIS TIME. AN APPOINTMENT WITH DR. RODRIGUES WILL BE MADE FROM FACILITY. PATIENT CHOICE FORM FOR SNF SIGNED, NO COMPARE DATA REVIEWED PATIENT FAMILY HAS VISITED FACILITIES PER PATIENT REQUEST. [facility] FORMS SIGNED,COPY GIVEN TO PATIENT AND FILED IN CHART. DISCHARGE INSTRUCTIONS FAXED TO PCP, SNF AND REVIEWED WITH PATIENT
--- NOTE | 2019-09-17 12:24 | NUR ---
DISCHARGE INSTRUCTIONS GIVEN. SEEMS TO UNDERSTAND INSTRUCTIONS. LEFT WITH [facility] STAFF TO GO TO THE [facility]. DENIES ANY FURTHER NEED AT THIS TIME.
== END 2019-09-17 12:26 | DRG 91 ==
LOC: D.REHAB 17:52
PROVIDERS: ADMIT Emergency Medicine; ATTEND Emergency Medicine
DX: G92 Toxic encephalopathy (principal); J18.9 Pneumonia, unspecified organism; I21.4 Non-ST elevation (NSTEMI) myocardial infarction; R65.21 Severe sepsis with septic shock; I50.23 Acute on chronic systolic (congestive) heart failure; J96.01 Acute respiratory failure with hypoxia; R78.81 Bacteremia; J90 Pleural effusion, not elsewhere classified; E44.0 Moderate protein-calorie malnutrition; R13.12 Dysphagia, oropharyngeal phase; B96.89 Other specified bacterial agents as the cause of diseases classified elsewhere; D72.829 Elevated white blood cell count, unspecified; J31.0 Chronic rhinitis; I07.1 Rheumatic tricuspid insufficiency; D64.9 Anemia, unspecified; F32.9 Major depressive disorder, single episode, unspecified; Z85.46 Personal history of malignant neoplasm of prostate; R53.1 Weakness; D50.9 Iron deficiency anemia, unspecified; E78.5 Hyperlipidemia, unspecified; R53.81 Other malaise